=== PATIENT | female | born 1975 | race Caucasian/White ===

== ENCOUNTER 2017-03-07 13:24 | Inpatient (IN) ==
[2017-03-07 14:03] LABS: Bilirubin,Urine Negative (Negative); Blood,Urine Negative (Negative); Clarity,Urine Clear (Clear); Color,Urine Yellow (Yellow); Glucose,Urine (UA) 500 mg/dL (Normal); Ketones,Urine Negative (Negative); Nitrite,Urine Negative (Negative); PH,Urine 5.5 pH Units (5.0-8.0); Protein,Urine Negative (Neg-Trace); Specific Gravity,Urine >= 1.030 (1.010-1.025); Urobilinogen,Urine Normal (Normal)
[2017-03-07 14:04] LABS: Leukocyte Esterase,Urine Negative (Negative)
[2017-03-07 14:06] LABS: Amphetamine Screen,Urine Negative ng/mL (Cutoff=1000); Barbiturate Screen,Urine Negative ng/mL (Cutoff=200); Benzodiazepines Screen,Urine Positive ng/mL (Cutoff=200); Cannabinoid Screen,Urine Negative ng/mL (Cutoff = 50); Cocaine Screen,Urine Negative ng/mL (Cutoff= 300); Opiate Screen,Urine Positive ng/mL (Cutoff=300); Phencyclidine Screen,Urine Negative ng/mL (Cutoff=25)
[2017-03-07 14:35] LABS: Basophils # 0.1 K/mcL (0.0-0.2); Basophils % 0.7 %; Eosinophils # 0.4 K/mcL (0.0-0.6); Eosinophils % 3.1 %; Hematocrit 48.4 % (35.3-44.9); Hemoglobin 16.8 g/dL (11.5-15.4); Immature Granulocytes % 0.3 % (0-4); Lymphocytes # 4.1 K/mcL (0.6-4.6); Lymphocytes % 33.4 %; Mean Corpuscular HGB Conc 34.7 g/dL (31.6-35.5); Mean Corpuscular Volume 83.4 fL (83.0-100.0); Mean Platelet Volume 8.8 fL (9.4-12.4); Monocytes # 0.7 K/mcL (0.0-1.3); Monocytes % 5.5 %; Neutrophils # 6.9 K/mcL (1.6-8.9); Platelet Count 197 K/mcL (140-400); Red Cell Distribution Width 12.4 % (11.5-14.5)
--- NOTE | 2017-03-07 14:37 | Emergency Department Note ---
START Narrative - START START: I examined this patient and my medical decision-making was reviewed with the [employer]INDER MACHINE/PA/Advanced Practice Nurse/Resident Physician. I agree with the documented findings, disposition and treatment plan as described except to the extent set forth below. Patient emergency department with suicidal thoughts. States she is hearing voices that are telling her to walk in traffic. No physical complaints. Physical exam nonfocal. She sitting up in bed reading a book. Plan. Medical clearance and one a evaluation. Patient is medically cleared at this time. Contact the one A for evaluation.
[2017-03-07 14:57] LABS: BUN/Creatinine Ratio 12 (6-26); Blood Urea Nitrogen 10 mg/dL (7-20); Calcium 9.7 mg/dL (8.6-10.8); Carbon Dioxide 20 mEq/L (19-29); Chloride 104 mEq/L (98-109); Glucose 239 mg/dL (70-99); Osmolality,Calculated 289 (280-300); Potassium 4.4 mEq/L (3.5-4.5); Sodium 136 mEq/L (136-145); eGFR For African Americans > 60 (> 60); eGFR For Non-African Americans > 60 (> 60)
[2017-03-07 15:04] LABS: Acetaminophen < 1.0 mcg/mL (10-30); Ethanol < 10 mg/dL (0-10); Salicylate < 5.0 mg/dL (15-30)
--- NOTE | 2017-03-07 15:08 | Emergency Department Note ---
Disposition Clinical Impression: Suicidal ideation Disposition: Admitted As Inpatient Condition: Good Psych HPI - General Chief Complaint: ED Psychiatric Symptoms Stated Complaint: SI, hearing voices Time Seen by Provider: 03/07/17 13:51 Source: patient Mode of arrival: private vehicle Limitations: no limitations Nursing Notes Reviewed: Yes Vital Signs Reviewed: Yes - History of Present Illness HPI Narrative: 41-year-old female history of bipolar who presents to the ER due to suicidal ideation. Patient reports history of voices yesterday telling her to harm herself by walking out into the road. She states that she had heard voices before but never to harm herself. She does report in the past of attempted suicide attempt by overdosing on her Xanax. She denies any homicidal ideation. No visual hallucinations. No recent changes in her medications. Denies alcohol or drug use. No other complaints. Pt complaint: suicidal ideation Onset (ago): day(s) Duration: intermittent History of similar episodes: Yes Improves with: none Worsens with: none Alleged intoxication: No Associated Psychiatric Symptoms: depression, suicidal ideation Associated symptoms: Reports: denies other symptoms Traumatic symptoms: denies traumatic injury Treatments prior to arrival: none Self harm or harm to others: admits thoughts of self harm, has plan - Related Data Home Medications Medication Instructions Recorded Confirmed Gabapentin [Neurontin] 800 mg PO QID 05/15/15 03/07/17 Levothyroxine [Synthroid] 25 mcg PO QAM 05/15/15 03/07/17 Metformin [Glucophage] 1,000 mg PO BIDWM 05/15/15 03/07/17 Omeprazole [PriLOSEC] 40 mg PO DAILY 05/15/15 03/07/17 Simvastatin [Zocor] 20 mg PO HS 05/15/15 03/07/17 Albuterol Sulfate [Albuterol 2 puff IH Q6HR PRN 06/22/15 03/07/17 Inhaler] FLUoxetine HCl [Prozac] 60 mg PO DAILY 01/18/17 03/07/17 LORazepam [Ativan] 0.5 mg PO BID PRN 01/18/17 03/07/17 Lidocaine Patch [Lidoderm 5% patch] 1 each TP DAILY 01/18/17 03/07/17 Albuterol Neb [Proventil Neb] 2.5 mg IH TID PRN 03/07/17 03/07/17 Lisinopril [Zestril] 10 mg PO DAILY 03/07/17 03/07/17 Ranitidine HCl [Zantac] 300 mg PO HS 03/07/17 03/07/17 Tizanidine HCl [Zanaflex] 4 mg PO TID 03/07/17 03/07/17 Previous Rx's Medication Instructions Recorded Dicyclomine [Bentyl] 20 mg PO Q6H PRN #0 capsule 03/09/17 Quetiapine Fumarate [Seroquel] 25 mg PO HS #30 tablet 03/09/17 Allergies Allergy/AdvReac Type Severity Reaction Status Date / Time chlordiazepoxide Allergy Hallucinati Verified 03/08/17 13:25 [From Librax (with ng methscopolamine)] Clidinium Allergy Hallucinati Verified 03/08/17 13:25 [From Librax (with ng clidinium)] metoclopramide [From Reglan] Allergy Anaphylaxis Verified 01/18/17 22:28 nabumetone [From Relafen] Allergy Anaphylaxis Verified 01/18/17 22:28 scopolamine Allergy Hallucinati Verified 03/08/17 13:25 [From Librax (with ng methscopolamine)] meperidine [From Demerol] AdvReac Rash Verified 01/18/17 22:28 All systems ED: reviewed and negative except as stated. Cardiovascular: Denies: chest pain Respiratory: Denies: dyspnea Gastrointestinal: Denies: abdominal pain Psychiatric: Reports: depression, suicidal thoughts, auditory hallucinations. Denies: homicidal thoughts, visual hallucinations Past Medical History - Past Medical History Attestation: Yes The following information was validated with the patient. Source: patient Medical history: Reports: asthma, diabetes, GERD, hyperlipidemia, thyroid disease, valvular heart disease, other Surgical history: Reports: cholecystectomy, hysterectomy, orthopedic, other, sinus surgery, other Psychiatric history: Reports: anxiety, bipolar, depression, prior suicide attempt, previous psychiatric hospitalization [facility] history: Reports: polycystic ovary syndrome - Social History Smoking Status: Current every day smoker Smokeless Tobacco Status: No Alcohol use: Reports: occasionally Drug use: Reports: none Physical Exam - General Limitations: no limitations General appearance: alert, in no apparent distress - Head Head exam: atraumatic, normocephalic, normal inspection - Eye Eye exam: Present: normal appearance, EOMI - ENT ENT exam: normal exam - Neck Neck exam: Present: normal inspection - Chest Chest inspection: Present: normal inspection, symmetric chest wall rise - Respiratory Respiratory exam: Present: normal lung sounds bilaterally - Cardiovascular Cardiovascular exam: Present: regular rate, normal rhythm, normal heart sounds - Abdominal Exam Abdominal exam: Present: soft, Non-Tender. Absent: tenderness - Extremities Exam Extremities exam: Present: normal inspection, full ROM - Expanded Upper Extremity Exam Shoulder exam: Present: normal inspection, full ROM Arm exam: Present: normal inspection, full ROM Elbow exam: Present: normal inspection, full ROM Forearm/Wrist exam: Present: normal inspection, full ROM Hand exam: Present: normal inspection, full ROM - Expanded Lower Extremity Exam Hip/Pelvis exam: Present: normal inspection, full ROM Upper leg exam: Present: normal inspection, full ROM Knee exam: Present: normal inspection, full ROM Lower leg exam: Present: normal inspection, full ROM Ankle exam: Present: normal inspection, full ROM Foot/toe exam: Present: normal inspection, full ROM - Neurological Exam Neurological exam: Present: alert, other (GCS 15 nonfocal neurologic exam moves all extremities) - Psychiatric Psychiatric exam: Present: normal affect, normal mood - Skin Skin exam: Present: warm, dry, intact, normal color Course Course Narrative: Patient seen and examined. Vital signs reviewed. We will get labs to clear for psychiatric evaluation. Vital Signs Temperature 98.1 F 03/07/17 13:25 Pulse Rate 86 03/07/17 13:25 Respiratory Rate 16 03/07/17 13:25 Blood Pressure 152/93 03/07/17 13:25 O2 Sat by Pulse Oximetry 95 03/07/17 13:25 Temperature 97.5 F L 03/09/17 09:00 Pulse Rate 79 03/09/17 09:00 Respiratory Rate 16 03/09/17 09:00 Blood Pressure 124/82 03/09/17 09:00 O2 Sat by Pulse Oximetry 95 03/07/17 13:25 Oxygen Delivery Oxygen Delivery Room Air Psych - MDM Narrative Medical decision making narrative: 41-year-old female presents to the ER due to suicidal ideation. She was medically cleared for psychiatric evaluation. Patient has been accepted for inpatient management. - Lab Data Lab results reviewed: Yes I reviewed the patient's lab results. Result diagrams: 03/07/17 14:28 03/07/17 14:28 Lab Results 03/07/17 03/07/17 03/07/17 Range/Units 12:45 12:45 12:45 WBC (4.3-11.1) K/mcL RBC (3.82-4.97) M/mcL Hgb (11.5-15.4) g/dL Hct (35.3-44.9) % MCV (83.0-100.0) fL MCH (28.0-33.3) pg MCHC (31.6-35.5) g/dL RDW (11.5-14.5) % Plt Count (140-400) K/mcL MPV (9.4-12.4) fL Immature Gran % (0-4) % Seg Neutrophils % % Lymphocytes % % Monocytes % % Eosinophils % % Basophils % % Neutrophils # (1.6-8.9) K/mcL Lymphocytes # (0.6-4.6) K/mcL Monocytes # (0.0-1.3) K/mcL Eosinophils # (0.0-0.6) K/mcL Basophils # (0.0-0.2) K/mcL Sodium (136-145) mEq/L Potassium (3.5-4.5) mEq/L Chloride (98-109) mEq/L Carbon Dioxide (19-29) mEq/L BUN (7-20) mg/dL Creatinine (0.57-1.11) mg/dL Est GFR ( Amer) (> 60) Est GFR (Non-Af Amer) (> 60) BUN/Creatinine Ratio (6-26) Glucose (70-99) mg/dL Calculated Osmolality (280-300) Calcium (8.6-10.8) mg/dL TSH (0.350-4.840) mcIU/mL Urine Color Yellow (Yellow) Urine Clarity Clear (Clear) Urine pH 5.5 (5.0-8.0) pH Units Ur Specific [place] >= 1.030 H (1.010-1.025) Urine Protein Negative (Neg-Trace) mg/dL Urine Glucose (UA) 500 H (Normal) mg/dL Urine Ketones Negative (Negative) mg/dL Urine Blood Negative (Negative) Urine Nitrite Negative (Negative) Urine Bilirubin Negative (Negative) Urine Urobilinogen Normal (Normal) mg/dL Ur Leukocyte Esterase Negative (Negative) Urine Test Negative (Negative) Salicylates (15-30) mg/dL Urine Opiates Screen Positive H (Wjydfw=299) ng/mL Acetaminophen (10-30) mcg/mL Ur Barbiturates Screen Negative (Peciyd=871) ng/mL Ur Phencyclidine Scrn Negative (Cutoff=25) ng/mL Ur Amphetamines Screen Negative (Dctxss=8173) ng/mL U Benzodiazepines Scrn Positive H (Eqanyq=294) ng/mL Urine Cocaine Screen Negative (Cutoff= 300) ng/mL U Marijuana (THC) Screen Negative (Cutoff = 50) ng/mL Ethyl Alcohol (0-10) mg/dL 03/07/17 03/07/17 Range/Units 14:28 14:28 WBC 12.1 H (4.3-11.1) K/mcL RBC 5.80 H (3.82-4.97) M/mcL Hgb 16.8 H (11.5-15.4) g/dL Hct 48.4 H (35.3-44.9) % MCV 83.4 (83.0-100.0) fL MCH 29.0 (28.0-33.3) pg MCHC 34.7 (31.6-35.5) g/dL RDW 12.4 (11.5-14.5) % Plt Count 197 (140-400) K/mcL MPV 8.8 L (9.4-12.4) fL Immature Gran % 0.3 (0-4) % Seg Neutrophils % 57.0 % Lymphocytes % 33.4 % Monocytes % 5.5 % Eosinophils % 3.1 % Basophils % 0.7 % Neutrophils # 6.9 (1.6-8.9) K/mcL Lymphocytes # 4.1 (0.6-4.6) K/mcL Monocytes # 0.7 (0.0-1.3) K/mcL Eosinophils # 0.4 (0.0-0.6) K/mcL Basophils # 0.1 (0.0-0.2) K/mcL Sodium 136 (136-145) mEq/L Potassium 4.4 (3.5-4.5) mEq/L Chloride 104 (98-109) mEq/L Carbon Dioxide 20 (19-29) mEq/L BUN 10 (7-20) mg/dL Creatinine 0.84 (0.57-1.11) mg/dL Est GFR ( Amer) > 60 (> 60) Est GFR (Non-Af Amer) > 60 (> 60) BUN/Creatinine Ratio 12 (6-26) Glucose 239 H (70-99) mg/dL Calculated Osmolality 289 (280-300) Calcium 9.7 (8.6-10.8) mg/dL TSH 1.621 (0.350-4.840) mcIU/mL Urine Color (Yellow) Urine Clarity (Clear) Urine pH (5.0-8.0) pH Units Ur Specific [place] (1.010-1.025) Urine Protein (Neg-Trace) mg/dL Urine Glucose (UA) (Normal) mg/dL Urine Ketones (Negative) mg/dL Urine Blood (Negative) Urine Nitrite (Negative) Urine Bilirubin (Negative) Urine Urobilinogen (Normal) mg/dL Ur Leukocyte Esterase (Negative) Urine Test (Negative) Salicylates < 5.0 L (15-30) mg/dL Urine Opiates Screen (Rpvnoa=780) ng/mL Acetaminophen < 1.0 L (10-30) mcg/mL Ur Barbiturates Screen (Fvnuzn=846) ng/mL Ur Phencyclidine Scrn (Cutoff=25) ng/mL Ur Amphetamines Screen (Ivrmps=9751) ng/mL U Benzodiazepines Scrn (Vtelgz=745) ng/mL Urine Cocaine Screen (Cutoff= 300) ng/mL U Marijuana (THC) Screen (Cutoff = 50) ng/mL Ethyl Alcohol < 10 (0-10) mg/dL Psychiatric Medical Clearance - Medical Clearance Checklist Medical History: No Social History Section defined Current Vitals: Last Vital Signs Temp 97.5 F L 03/09/17 09:00 Pulse 79 03/09/17 09:00 Resp 16 03/09/17 09:00 BP 124/82 03/09/17 09:00 Pulse Ox 95 03/07/17 13:25 Abnormal Labs: Abnormal lab results WBC 12.1 K/mcL (4.3-11.1) H 03/07/17 14:28 RBC 5.80 M/mcL (3.82-4.97) H 03/07/17 14:28 Hgb 16.8 g/dL (11.5-15.4) H 03/07/17 14:28 Hct 48.4 % (35.3-44.9) H 03/07/17 14:28 MPV 8.8 fL (9.4-12.4) L 03/07/17 14:28 Glucose 239 mg/dL (70-99) H 03/07/17 14:28 Ur Specific [place] >= 1.030 (1.010-1.025) H 03/07/17 12:45 Urine Glucose (UA) 500 mg/dL (Normal) H 03/07/17 12:45 Salicylates < 5.0 mg/dL (15-30) L 03/07/17 14:28 Urine Opiates Screen Positive ng/mL (Fhzsqz=509) H 03/07/17 12:45 Acetaminophen < 1.0 mcg/mL (10-30) L 03/07/17 14:28 U Benzodiazepines Scrn Positive ng/mL (Eiizrp=672) H 03/07/17 12:45
[2017-03-07 15:18] LABS: Thyroid Stimulating Hormone 1.621 mcIU/mL (0.350-4.840)
[2017-03-07] MEDS ORDERED: Haloperidol Lactate 5 MG/ML VIAL IM PRN (21:27)
[2017-03-07] MEDS ORDERED: Mag Hydrox/Al Hydrox/Simeth 30 ML UDC PO PRN (21:27)
[2017-03-07] MEDS ORDERED: traZODone 50 MG TABLET PO PRN (21:27)
[2017-03-07] MEDS ORDERED: MOM Conc 10 ML UD.LIQ PO PRN (21:27)
[2017-03-07] MEDS ORDERED: *HR* LORazepam 1 MG TABLET PO PRN (21:27)
[2017-03-07] MEDS ORDERED: hydrOXYzine pamoate 25 MG CAPSULE PO PRN (21:27)
[2017-03-07] MEDS ORDERED: *HR* LORazepam 2 MG/ML VIAL IM PRN (21:27)
[2017-03-07] MEDS ORDERED: Acetaminophen 325 MG TABLET PO PRN (21:27)
[2017-03-07] MEDS ORDERED: Albuterol 2.5 MG/3 ML NEBULIZER IH PRN (21:30)
[2017-03-07] MEDS ORDERED: *HR* LORazepam 0.5 MG TABLET PO PRN (21:30)
[2017-03-07] MEDS: Famotidine 20 MG TABLET PO SCH (22:32)
[2017-03-07] MEDS: Gabapentin 400 MG CAPSULE PO SCH (22:32)
[2017-03-07] MEDS: tiZANidine 4 MG TABLET PO SCH (22:32)
[2017-03-07] MEDS: FLUoxetine 20 MG CAPSULE PO SCH (22:33)
[2017-03-08] MEDS: Levothyroxine 25 MCG TABLET PO SCH (07:07)
[2017-03-08] MEDS: *HR* Metformin 500 MG TABLET PO SCH ×2 (08:36→17:31)
[2017-03-08] MEDS: tiZANidine 4 MG TABLET PO SCH ×3 (08:36→20:39)
[2017-03-08] MEDS: Gabapentin 400 MG CAPSULE PO SCH ×4 (08:36→20:38)
[2017-03-08] MEDS: FLUoxetine 20 MG CAPSULE PO SCH (08:37)
[2017-03-08] MEDS ORDERED: Levothyroxine 25 MCG TABLET PO SCH (09:00)
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
[2017-03-08] MEDS: Famotidine 20 MG TABLET PO SCH (20:39)
[2017-03-09] MEDS: Levothyroxine 25 MCG TABLET PO SCH (06:55)
[2017-03-09] MEDS: *HR* Metformin 500 MG TABLET PO SCH (08:30)
[2017-03-09] MEDS: FLUoxetine 20 MG CAPSULE PO SCH (08:30)
[2017-03-09] MEDS: tiZANidine 4 MG TABLET PO SCH (08:31)
[2017-03-09] MEDS: Gabapentin 400 MG CAPSULE PO SCH (08:31)
[2017-03-09 09:16] VITALS: BP 124/82
--- NOTE | 2017-03-09 09:26 | Discharge Summary ---
Date of Encounter: 03/09/17 Time of Encounter: 08:30 Diagnosis - Discharge Diagnosis (1) Bipolar II disorder Status: Acute Medications - Discharge Medications Prescriptions: Quetiapine Fumarate [Seroquel] 25 mg PO HS #30 tablet Gabapentin [Neurontin] 800 mg PO QID 05/15/15 [History] Levothyroxine [Synthroid] 25 mcg PO QAM 05/15/15 [History] Metformin [Glucophage] 1,000 mg PO BIDWM 05/15/15 [History] Omeprazole [PriLOSEC] 40 mg PO DAILY 05/15/15 [History] Simvastatin [Zocor] 20 mg PO HS 05/15/15 [History] Albuterol Sulfate [Albuterol Inhaler] 2 puff IH Q6HR PRN 06/22/15 [History] FLUoxetine HCl [Prozac] 60 mg PO DAILY 01/18/17 [History] LORazepam [Ativan] 0.5 mg PO BID PRN 01/18/17 [History] Lidocaine Patch [Lidoderm 5% patch] 1 each TP DAILY 01/18/17 [History] Albuterol Neb [Proventil Neb] 2.5 mg IH TID PRN 03/07/17 [History] Lisinopril [Zestril] 10 mg PO DAILY 03/07/17 [History] Ranitidine HCl [Zantac] 300 mg PO HS 03/07/17 [History] Tizanidine HCl [Zanaflex] 4 mg PO TID 03/07/17 [History] Dicyclomine [Bentyl] 20 mg PO Q6H PRN #0 capsule 03/09/17 [Rx] Quetiapine Fumarate [Seroquel] 25 mg PO HS #30 tablet 03/09/17 [Rx] Allergies chlordiazepoxide [From Librax (with methscopolamine)] Allergy (Verified 13:25) Hallucinating Clidinium [From Librax (with clidinium)] Allergy (Verified 03/08/17 13:25) Hallucinating metoclopramide [From Reglan] Allergy (Verified 01/18/17 22:28) Anaphylaxis nabumetone [From Relafen] Allergy (Verified 01/18/17 22:28) Anaphylaxis scopolamine [From Librax (with methscopolamine)] Allergy (Verified 03/08/17 13: 25) Hallucinating meperidine [From Demerol] Adverse Reaction (Verified 01/18/17 22:28) Rash Provider Date of admission: 03/07/17 20:26 Primary care physician: PCP NO Discharging clinician: Francisco Garcia Assessment and Plan - Patient/Caregiver Discharge Instructions Activity: resume usual activities as tolerated Diet: diabetic diet - Follow up Plan Follow up with: [facility] [Outside] - 04/15/17 2:00 pm (The above appointment is Yue Mcallister for mental health counseling. You will also see Dr. Zimmer for outpatient psychiatric assessment and medication management services on 2016 at 4:00pm. You may contact the office regularly to check for cancellations that would allow you to be seen sooner.) Functional capacity at discharge: independent ambulation Overall status at discharge: Stable Disposition: Home, Self-Care Hospital Course Hospital course: Ms. Minor is a 41 year old female who was hospitalized after having psychotic symptoms secondary to his starting Librax. During the hospital course patient stabilized very quickly. She responded well to the therapeutic milieu and medications and her psychotic symptoms subsided. She was endorsing hearing voices prior to her admission but they subsided. She was not delusional psychotic suicidal or manic on discharge. Her condition was stable. She attended groups and participated in activities. Her sleep and appetite was good. Overall patient's discharge condition was stable. Does patient wish to continue nicotine replacement upon disc: No - Time Spent with Patient Total time spent providing and/or coordinating discharge services: Quality - Multiple Antipsychotics Patient discharged on 2 or more antipsychotic medications: No Procedures - Procedures Procedures: Medication Management, Crisis Stabilization, Supportive Therapy, Group Therapy, Psychoeducational Therapy Mental Status Exam - Mental Status Exam Patient orientation: Yes Person, Yes Time, Yes Place Level of alertness: Alert Patient appearance: Appropriate, Well Groomed Behavior: calm, cooperative Psychomotor activity: Normal Eye contact: Maintains Eye Contact Mood description: Euthymic/stable Affect description: congruent with mood, full range Speech pattern: Normal rate, Normal rhythm, Normal tone Speech Volume: Normal Thought process: Linear, Goal Oriented Thought Content: No Suicidal ideation, No Homicidal ideation, No Overt delusions Perceptual Disturbances: No Auditory hallucinations, No Visual hallucinations Judgment: Fair Insight: Partial
== END 2017-03-09 11:20 | disposition home or self-care (01) | DRG 918 ==
LOC: EMEROO 13:24 → 1ANU 20:24 → SUATTDRO 20:26
PROVIDERS: ADMIT Psychiatry & Neurology Psychiatry; ATTEND Psychiatry & Neurology Psychiatry

== ENCOUNTER 2017-04-06 22:10 | Observation (INO) ==
[2017-04-07] MEDS ORDERED: Naloxone 0.4 MG/ML INJ IVP PRN (02:10)
[2017-04-07] MEDS ORDERED: Ondansetron ODT 4 MG TAB.RAPDIS SL PRN (02:10)
[2017-04-07] MEDS ORDERED: Albuterol 2.5 MG/3 ML NEBULIZER IH PRN (02:14)
[2017-04-07] MEDS ORDERED: 0.9 % Sodium Chloride 1,000 ML IVC SCH (02:15)
[2017-04-07] MEDS ORDERED: *HR* Dextrose 50 % in Water (Syg) 50 ML SYRINGE IVP PRN (02:16)
[2017-04-07] MEDS ORDERED: D5% in Water 1,000 ML IVC PRN (02:16)
[2017-04-07] MEDS ORDERED: Dextrose Gel 15 GM PO PRN ×2 (02:16)
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
[2017-04-07 05:10] LABS: Basophils # 0.1 K/mcL (0.0-0.2); Basophils % 0.7 %; Eosinophils # 0.3 K/mcL (0.0-0.6); Eosinophils % 2.4 %; Hematocrit 45.3 % (35.3-44.9); Hemoglobin 15.3 g/dL (11.5-15.4); Immature Granulocytes % 0.3 % (0-4); Lymphocytes # 4.3 K/mcL (0.6-4.6); Lymphocytes % 35.6 %; Mean Corpuscular HGB Conc 33.8 g/dL (31.6-35.5); Mean Corpuscular Hemoglobin 29.4 pg (28.0-33.3); Mean Corpuscular Volume 86.9 fL (83.0-100.0); Monocytes # 0.7 K/mcL (0.0-1.3); Neutrophils # 6.6 K/mcL (1.6-8.9); Platelet Count 180 K/mcL (140-400); Red Blood Count 5.21 M/mcL (3.82-4.97); Red Cell Distribution Width 13.2 % (11.5-14.5)
[2017-04-07 05:25] LABS: BUN/Creatinine Ratio 11 (6-26); Blood Urea Nitrogen 9 mg/dL (7-20); Calcium 9.2 mg/dL (8.6-10.8); Carbon Dioxide 21 mEq/L (19-29); Chloride 104 mEq/L (98-109); Glucose 213 mg/dL (70-99); Osmolality,Calculated 289 (280-300); Sodium 137 mEq/L (136-145); eGFR For African Americans > 60 (> 60); eGFR For Non-African Americans > 60 (> 60)
[2017-04-07 06:16] LABS: Potassium 4.1 mEq/L (3.5-4.5)
[2017-04-07] MEDS ORDERED: Levothyroxine 25 MCG TABLET PO SCH (09:00)
[2017-04-07] MEDS: Insulin LISPRO 300 UNITS/3 ML VIAL SQ SCH ×2 (09:33→12:45)
[2017-04-07 11:30] VITALS: BP 150/70
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
--- NOTE | 2017-04-07 15:13 | Consult Note ---
Date of Encounter: 04/07/17 Time of Encounter: 02:35 Assessment & Recommendation (1) MDD (major depressive disorder), recurrent severe, without psychosis Current visit: Yes Status: Acute Assessment & Recommendation: Patient is seen and interviewed. At this point in time patient is adamantly denying any suicidal or homicidal ideations. She is future oriented and is able to verbalize a safety plan. She and her are addressing the ongoing challenges and issues with her [id number]. The assured the patient that his father will have no contact with the patient which is a big relief for her. Patient already has scheduled appointments to meet Dr. Siddiqi and her therapist. She already has supply of Prozac and Ativan at home. Since patient is denying suicidal homicidal ideation is and is not meeting criteria to be hospitalized on the psych floor my recommendation is for her to continue the Prozac and Ativan and keep her follow-up appointment with Dr. Siddiqi. Her discharge condition is stable (2) Major depressive disorder, recurrent, moderate Current visit: Yes Status: Acute History of Present Illness Patient: known to practice within the last 3 years Requesting Physician: Honey Linda CNP Reason for consult: Suicide attempt History of present illness: Ms. Minor is a 41 year old female Who was hospitalized on the MedSurg floor after she overdosed on 48 tablets of 25 mg of Seroquel and Zanaflex patient is known to us from recent hospitalization. She is noted to have history of depression. Patient reported that she was doing fine up until on the day of her overdose. She reported that she and her have been helping a young 28-year-old tahira who is going through a difficult time in his life. Patient reported that ever since she has been with her for the last 13 years her oqntam-[id number] has been extremely created critical negative manipulative and controlling. She reported then on the day of her overdose she had an issue with her elctrg-iu-wbf afterwards the oxramj-ru-czu accuse her of having a relationship with this young man whom patient is helping during a difficult time. Patient reported that she felt disgusted and devastated and extremely depressed and hopeless and impulsively overdosed on her pills. She reported that her intention was not to kill herself. She is currently denying any suicidal or homicidal ideations. She is future oriented is showing extreme drug remorse and regretting her impulsive act. She and her have addressed his ongoing challenges with isfkio-se-uac and will make sure that his father has no contact with the patient. CC: Honey Linda CNP Past Med Surg Social Fam HX - Past Medical History Medical history: asthma, diabetes, GERD, hyperlipidemia, hypertension, thyroid disease, valvular heart disease, other - Past Psychiatric History Psychiatric history: Reports: depression, previous psychiatric hospitalization Past psychiatric history details: Patient has previous psychiatric hospitalizations. Last hospitalization is indicated he now was approximately a month ago. Patient is currently receiving outpatient treatment from Dr. Peters Family psychiatric history: Yes Family Psychiatric History Details: Father has history of bipolar Family History of Suicide: None - Past Surgical History Surgical History: cholecystectomy, hysterectomy, orthopedic, other, sinus surgery, other - Social History Smoking Status: Current every day smoker Smokeless Tobacco Status: No Alcohol use: none Drug use: none Occupational status: unemployed Current living situation: Home, With Family Activity Level: Independent ambulation Recent Out of Country Travel Within the Last 8 Weeks: No Exposure or Possible Exposure to Illness During Travel: No Additional social history: Patient is and resides with her of 13 years. She does not have any children. She denies any legal issues. - Family History Father Hx Family Cardiac Disorders: Yes (HTN, CVA) Hx Family Cancer: Yes (Lung) Hx Family GI Disorders: Yes (Ulcers, hiatal hernia) Hx Family Genitourinary Disorders: No Hx Family Endocrine Disorder: Yes (DM) Hx Family Musculoskeletal Disorders: No Hx Family Neuromuscular Disorders: No Hx Family Neurologic Disorders: No Hx Family HEENT Disorders: No Hx Family Autoimmune Disorders: No Hx Family Reproductive Disorders: No Hx Family Psychosocial Disorders: Yes (psych) Hx Family Medical Disorders: No Medications & Allergies Gabapentin [Neurontin] 800 mg PO BID 05/15/15 [History] Levothyroxine [Synthroid] 25 mcg PO QAM 05/15/15 [History] Metformin [Glucophage] 1,000 mg PO BIDWM 05/15/15 [History] Omeprazole [PriLOSEC] 40 mg PO DAILY 05/15/15 [History] Simvastatin [Zocor] 20 mg PO HS 05/15/15 [History] Albuterol Sulfate [Albuterol Inhaler] 2 puff IH Q6HR PRN 06/22/15 [History] FLUoxetine HCl [Prozac] 60 mg PO DAILY 01/18/17 [History] LORazepam [Ativan] 0.5 mg PO BID PRN 01/18/17 [History] Lidocaine Patch [Lidoderm 5% patch] 1 patch TP DAILY PRN 01/18/17 [History] Albuterol Neb [Proventil Neb] 2.5 mg IH TID PRN 03/07/17 [History] Lisinopril [Zestril] 10 mg PO DAILY 03/07/17 [History] Ranitidine HCl [Zantac] 300 mg PO HS 03/07/17 [History] Tizanidine HCl [Zanaflex] 4 mg PO TID 03/07/17 [History] Aspirin/Acetaminophen/Caffeine [Excedrin Migraine Caplet] 1 tab PO DAILY PRN [History] Gabapentin [Neurontin] 1,600 mg PO HS 04/07/17 [History] Quetiapine Fumarate [SEROquel] 50 mg PO HS 04/07/17 [History] Allergies chlordiazepoxide [From Librax (with methscopolamine)] Allergy (Verified 19:30) Hallucinating Clidinium [From Librax (with clidinium)] Allergy (Verified 04/06/17 19:30) Hallucinating metoclopramide [From Reglan] Allergy (Verified 04/06/17 19:30) Anaphylaxis nabumetone [From Relafen] Allergy (Verified 04/06/17 19:30) Anaphylaxis scopolamine [From Librax (with methscopolamine)] Allergy (Verified 04/06/17 19: 30) Hallucinating meperidine [From Demerol] Adverse Reaction (Verified 04/06/17 19:30) Rash Review of Systems Psychiatric: Reports: anxiety Mental Status Exam Patient orientation: Yes Person, Yes Time, Yes Place Level of alertness: Alert Patient appearance: Appropriate, Well Groomed Behavior: calm, cooperative Psychomotor activity: Normal Eye contact: Maintains Eye Contact Mood description: Euthymic/stable Affect description: congruent with mood, full range Speech pattern: Normal rate, Normal rhythm, Normal tone Speech volume: Normal Thought process: Linear, Goal Oriented Thought content: No Suicidal ideation, No Homicidal ideation, No Overt delusions Perceptual disturbances: No Auditory hallucinations, No Visual hallucinations Attention span: Capable of Focused Attention Memory description: Grossly Intact Patient reliability: Reliable Historian Intelligence estimate: Average Judgment: Limited Insight: Partial Results - Vital Signs Vital signs: Temp Pulse Resp BP Pulse Ox 96.7 F L 55 16 150/70 96 04/07/17 11:28 04/07/17 11:28 04/07/17 11:39 04/07/17 11:28 04/07/17 11:39 - Labs Labs: Laboratory Last Values WBC 12.0 K/mcL (4.3-11.1) H 04/07/17 03:56 RBC 5.21 M/mcL (3.82-4.97) H 04/07/17 03:56 Hgb 15.3 g/dL (11.5-15.4) D 04/07/17 03:56 Hct 45.3 % (35.3-44.9) H 04/07/17 03:56 MCV 86.9 fL (83.0-100.0) 04/07/17 03:56 MCH 29.4 pg (28.0-33.3) 04/07/17 03:56 MCHC 33.8 g/dL (31.6-35.5) 04/07/17 03:56 RDW 13.2 % (11.5-14.5) 04/07/17 03:56 Plt Count 180 K/mcL (140-400) 04/07/17 03:56 MPV 9.0 fL (9.4-12.4) L 04/07/17 03:56 Immature Gran % 0.3 % (0-4) 04/07/17 03:56 Seg Neutrophils % 55.0 % 04/07/17 03:56 Lymphocytes % 35.6 % 04/07/17 03:56 Monocytes % 6.0 % 04/07/17 03:56 Eosinophils % 2.4 % 04/07/17 03:56 Basophils % 0.7 % 04/07/17 03:56 Neutrophils # 6.6 K/mcL (1.6-8.9) 04/07/17 03:56 Lymphocytes # 4.3 K/mcL (0.6-4.6) 04/07/17 03:56 Monocytes # 0.7 K/mcL (0.0-1.3) 04/07/17 03:56 Eosinophils # 0.3 K/mcL (0.0-0.6) 04/07/17 03:56 Basophils # 0.1 K/mcL (0.0-0.2) 04/07/17 03:56 Sodium 137 mEq/L (136-145) 04/07/17 03:56 Potassium 4.1 mEq/L (3.5-4.5) 04/07/17 03:56 Chloride 104 mEq/L (98-109) 04/07/17 03:56 Carbon Dioxide 21 mEq/L (19-29) 04/07/17 03:56 BUN 9 mg/dL (7-20) 04/07/17 03:56 Creatinine 0.81 mg/dL (0.57-1.11) 04/07/17 03:56 Est GFR ( Amer) > 60 (> 60) 04/07/17 03:56 Est GFR (Non-Af Amer) > 60 (> 60) 04/07/17 03:56 BUN/Creatinine Ratio 11 (6-26) 04/07/17 03:56 Glucose 213 mg/dL (70-99) H 04/07/17 03:56 Calculated Osmolality 289 (280-300) 04/07/17 03:56 Calcium 9.2 mg/dL (8.6-10.8) 04/07/17 03:56 Consult Discharge Plan - Plan Referrals: Kana Newberry MD [Primary Care Provider] -
[2017-04-07] MEDS ORDERED: Insulin LISPRO 300 UNITS/3 ML VIAL SQ SCH (21:00)
== END 2017-04-07 17:45 | disposition left against medical advice (07) ==
LOC: 3BNU
PROVIDERS: ADMIT Internal Medicine; ATTEND Registered Nurse

== ENCOUNTER 2017-11-22 13:22 | Observation (INO) ==
[2017-11-22] MEDS ORDERED: Naloxone 0.4 MG/ML INJ IVP PRN (15:29)
[2017-11-22] MEDS ORDERED: Ondansetron 4 MG/2 ML VIAL IVP PRN (15:29)
[2017-11-22] MEDS ORDERED: *HR* Promethazine 25 MG/ML VIAL IVP PRN (15:29)
[2017-11-22] MEDS ORDERED: Acetaminophen 325 MG TABLET PO PRN (15:29)
[2017-11-22] MEDS ORDERED: Acetaminophen/Aspirin/Caffeine TABLET PO PRN (16:59)
[2017-11-22] MEDS ORDERED: Albuterol 2.5 MG/3 ML NEBULIZER IH PRN (16:59)
[2017-11-22] MEDS ORDERED: *HR* Dextrose 50 % in Water (Syg) 50 ML SYRINGE IVP PRN (17:02)
[2017-11-22] MEDS ORDERED: D5% in Water 1,000 ML IVC PRN (17:02)
[2017-11-22] MEDS ORDERED: Dextrose Gel 15 GM/37.5 ML TUBE PO PRN ×2 (17:02)
[2017-11-22] MEDS ORDERED: *HR* Heparin 5,000 UNIT/ML VIAL IVP PRN ×2 (17:03)
[2017-11-22] MEDS ORDERED: *HR* Heparin 5,000 UNIT/ML VIAL IVP ONE (17:03)
--- NOTE | 2017-11-22 17:04 | Internal Med History&Physical ---
Date of Encounter: 11/22/17 Time of Encounter: 16:30 Assessment and Plan (1) Chest pain Current visit: No Status: Acute Will admit the pt into Tele for observation Will place pt on court monitor Apparently pt had some lab error elevated Troponin at [facility] Checked stat Trop now @ < 0.03 Cont trend on Trop Cont Heparin gtt for now.. until second trop..If her next Trop also negative, we can stop her Heparin Card consulted EKG reviewed showed normal sinus rhythm and no acute ischemic changes noticed will start pt on ASA, and Nitro PRN for pain Will check FLP in AM Pt did mention she had normal stress test a month ago will try to get those records Qualifiers: Chest pain type: unspecified Qualified Code(s): R07.9 - Chest pain, unspecified (2) Elevated troponin Current visit: No Status: Acute Unclear seems to be more like lab error..however with her symptoms will continue close monitoring (3) Type 2 diabetes mellitus Current visit: No Status: Chronic Uncontrolled DM2 BS in 300's check HbA1C Pt mentioned HbA1C 9 few months ago on ISS + will add Levemir Qualifiers: Diabetes mellitus jail insulin use: without computer terminal operator use Diabetes mellitus complication detail: with other neurological complication Qualified Code(s): E11.49 - Type 2 diabetes mellitus with other diabetic neurological complication (4) Hypothyroidism Current visit: No Status: Acute onn Levothyroxine Qualifiers: Qualified Code(s): E03.9 - Hypothyroidism, unspecified (5) Asthma Current visit: No Status: Chronic stable not in exacerbation resumed home regimen Qualifiers: Asthma severity: mild Asthma persistence: unspecified Asthma complication type: uncomplicated Qualified Code(s): J45.909 - Unspecified asthma, uncomplicated (6) Bipolar II disorder Current visit: No Status: Chronic resumed home meds (7) Hypertension Current visit: No Status: Chronic Qualifiers: Hypertension type: essential hypertension Qualified Code(s): I10 - Essential (primary) hypertension (8) GERD (gastroesophageal reflux disease) Current visit: No Status: Acute on PPI Qualifiers: Qualified Code(s): K21.9 - Gastro-esophageal reflux disease without esophagitis Internal Medicine - H&P: HPI Chief complaint: chest pain Admitted From: Emergency Dept Plans for Post Hospital Care: Home History of present illness: Ms. Minor is a 42 year old female with a known past medical history of hypertension, diabetes type II, hyperlipidemia, hypothyroidism and GERD who recently had a normal cardiac stress test a month ago now she presented to [facility] emergency room complaining of chest pain. Patient stated that her chest pain started this morning while she was sitting at home and watching TV. Her pain is located in left chest wall region radiating to her left shoulder. Her chest pain is more like sharp, 8 out of 10 in severity, associated with some diaphoresis and nausea. Patient had a further work up done at emergency room her troponin was elevated at 0.56. So we are asked to admit the pt here for further work up. Currently pt denied any CP. Past Med Surg Social Fam HX - Past Medical History Medical history: asthma, diabetes, GERD, hyperlipidemia, hypertension, thyroid disease, valvular heart disease, other Psychiatric history: anxiety, other - Past Surgical History Surgical History: cholecystectomy, hysterectomy, orthopedic, other, sinus surgery, other - Social History Smoking Status: Current every day smoker Smokeless Tobacco Status: No Alcohol use: none Drug use: none - Family History Father Living Status: Still Living Hx Family Cardiac Disorders: Yes (HTN, CVA) Hx Family Cancer: Yes (Lung) Hx Family GI Disorders: Yes (Ulcers, hiatal hernia) Hx Family Endocrine Disorder: Yes (DM) Hx Family Neuromuscular Disorders: No Hx Family Neurologic Disorders: No Hx Family HEENT Disorders: No Hx Family Autoimmune Disorders: No Internal Medicine - H&P: Meds Gabapentin [Neurontin] 800 mg PO BID 05/15/15 [History] Levothyroxine [Synthroid] 25 mcg PO QAM 05/15/15 [History] Metformin [Glucophage] 1,000 mg PO BIDWM 05/15/15 [History] Omeprazole [PriLOSEC] 40 mg PO DAILY 05/15/15 [History] Simvastatin [Zocor] 20 mg PO HS 05/15/15 [History] Albuterol Sulfate [Albuterol Inhaler] 2 puff IH Q6HR PRN 06/22/15 [History] FLUoxetine HCl [Prozac] 60 mg PO DAILY 01/18/17 [History] LORazepam [Ativan] 0.5 mg PO BID PRN 01/18/17 [History] Lidocaine Patch [Lidoderm 5% patch] 1 patch TP DAILY PRN 01/18/17 [History] Albuterol Neb [Proventil Neb] 2.5 mg IH TID PRN 03/07/17 [History] Lisinopril [Zestril] 10 mg PO DAILY 03/07/17 [History] Ranitidine HCl [Zantac] 300 mg PO HS 03/07/17 [History] Tizanidine HCl [Zanaflex] 4 mg PO TID 03/07/17 [History] Aspirin/Acetaminophen/Caffeine [Excedrin Migraine Caplet] 1 tab PO DAILY PRN [History] Gabapentin [Neurontin] 1,600 mg PO HS 04/07/17 [History] Quetiapine Fumarate [SEROquel] 50 mg PO HS 04/07/17 [History] Ibuprofen 800 mg PO TID PRN #15 tablet 11/11/17 [Rx] 3 Allergy/AdvReac Type Severity Reaction Status Date / Time chlordiazepoxide Allergy Hallucinati Verified 08/22/17 17:54 [From Librax (with ng methscopolamine)] Clidinium Allergy Hallucinati Verified 08/22/17 17:54 [From Librax (with ng clidinium)] scopolamine Allergy Hallucinati Verified 08/22/17 17:54 [From Librax (with ng methscopolamine)] meperidine [From Demerol] AdvReac Rash Verified 08/22/17 17:54 metoclopramide [From Reglan] AdvReac Palpitation Verified 08/22/17 17:54 s nabumetone [From Relafen] AdvReac Palpitation Verified 08/22/17 17:54 s All Systems PM: A 10-system review of systems was performed and is negative for pertinent findings except as documented above in the HPI. Review of systems: All the systems are reviewed everything is benign except the systems and symptoms I mentioned in the history of present illness - Constitutional Vitals: Temp Pulse Resp BP Pulse Ox 97.9 F 90 18 131/87 97 11/22/17 15:09 11/22/17 15:09 11/22/17 15:09 11/22/17 15:09 11/22/17 15:09 General appearance: Present: A&O X 3, no acute distress, answers questions appropriately - Head Head exam: Present: atraumatic, normocephalic - Neck Neck exam general surgery: Present: supple - Respiratory Respiratory exam: Present: decreased breath sounds. Absent: chest wall tenderness, rales, respiratory distress, rhonchi, wheezes - Cardiovascular Cardiovascular exam: Present: RRR, +S1, +S2. Absent: tachycardia - GI/Abdominal GI/Abdominal exam: Present: normal bowel sounds, soft. Absent: rebound, rigid, tenderness - Extremities Exam Extremities exam: Absent: calf tenderness, pedal edema, tenderness - Back Exam Back exam: Absent: CVA tenderness (L), CVA tenderness (R) - Neurological Exam Neurological exam: Present: alert, oriented X3 - Psychiatric Psychiatric exam: Present: normal affect, normal mood - Skin Skin exam: Absent: rash Internal Med - H&P Results - Labs Labs: Cardiac Enzymes 11/22/17 11/22/17 Range/Units 16:04 16:04 Troponin I < 0.03 < 0.03 (< 0.04) ng/mL
[2017-11-22] MEDS ORDERED: Heparin 25,000 UNIT/500 ML D5W 25,000 UNIT/500 ML BAG IVC SCH (17:15)
[2017-11-22] MEDS: *HR* HYDROcodone/Acet 5/325 mg TABLET PO PRN (17:25)
[2017-11-22] MEDS: Gabapentin 400 MG CAPSULE PO SCH ×2 (17:31→21:23)
[2017-11-22 18:43] LABS: Hematocrit 47.7 % (35.3-44.9); Hemoglobin 16.6 g/dL (11.5-15.4); Mean Corpuscular HGB Conc 34.8 g/dL (31.6-35.5); Mean Corpuscular Volume 83.4 fL (83.0-100.0); Mean Platelet Volume 9.8 fL (9.4-12.4); Platelet Count 197 K/mcL (140-400); Red Blood Count 5.72 M/mcL (3.82-4.97)
[2017-11-22 18:49] LABS: Prothrombin Time 11.1 Seconds (9.4-12.1)
[2017-11-22 18:52] LABS: Activated Partial Thrombo Time 45.4 Seconds (26.0-36.0)
[2017-11-22] MEDS: Insulin LISPRO 300 UNITS/3 ML VIAL SQ SCH (21:19)
[2017-11-22] MEDS: Famotidine 20 MG TABLET PO SCH (21:22)
[2017-11-22] MEDS: tiZANidine 4 MG TABLET PO SCH (21:22)
[2017-11-23 05:20] LABS: Basophils # 0.1 K/mcL (0.0-0.2); Eosinophils # 0.3 K/mcL (0.0-0.6); Eosinophils % 3.6 %; Hematocrit 41.7 % (35.3-44.9); Hemoglobin 14.6 g/dL (11.5-15.4); Immature Granulocytes % 0.2 % (0-4); Lymphocytes # 3.8 K/mcL (0.6-4.6); Lymphocytes % 45.2 %; Mean Corpuscular Hemoglobin 29.3 pg (28.0-33.3); Mean Corpuscular Volume 83.7 fL (83.0-100.0); Monocytes # 0.4 K/mcL (0.0-1.3); Monocytes % 4.8 %; Neutrophils # 3.8 K/mcL (1.6-8.9); Platelet Count 150 K/mcL (140-400); Red Blood Count 4.98 M/mcL (3.82-4.97); Segmented Neutrophils % 45.2 %
[2017-11-23 05:42] LABS: BUN/Creatinine Ratio 10 (6-26); Blood Urea Nitrogen 8 mg/dL (6-20); Carbon Dioxide 23 mEq/L (23-29); Chloride 105 mEq/L (98-107); Chol/HDL Ratio 6.1 (0-4.9); Cholesterol 128 mg/dL (< 200); Glucose 389 mg/dL (70-105); HDL Cholesterol 21 mg/dL (40-59); Magnesium 1.3 mg/dL (1.6-2.6); Osmolality,Calculated 298 (280-300); Potassium 3.9 mEq/L (3.5-5.1); Sodium 137 mEq/L (136-145); Triglycerides 428 mg/dL (< 150); eGFR For African Americans > 60 (> 60); eGFR For Non-African Americans > 60 (> 60)
[2017-11-23] MEDS: Levothyroxine 25 MCG TABLET PO SCH (05:51)
[2017-11-23] MEDS: tiZANidine 4 MG TABLET PO SCH ×3 (07:59→21:49)
[2017-11-23] MEDS: FLUoxetine 20 MG CAPSULE PO SCH (07:59)
[2017-11-23] MEDS: Insulin LISPRO 300 UNITS/3 ML VIAL SQ SCH ×4 (08:00→21:40)
[2017-11-23] MEDS: *HR* LORazepam 0.5 MG TABLET PO PRN (08:02)
[2017-11-23] MEDS: Gabapentin 400 MG CAPSULE PO SCH ×3 (08:02→21:49)
--- NOTE | 2017-11-23 09:41 | Cardiology Consult Note ---
Date of Encounter: 11/23/17 Time of Encounter: 09:35 Assessment and Plan (1) Chest pain Current Visit: No Status: Acute Chest pain, SHADY negative. Will check echo due to reported history of bicuspid aortic valve. Qualifiers: Chest pain type: precordial pain Qualified Code(s): R07.2 - Precordial pain Discussion w patient/family: The assessment and plan as outlined above was discussed with the patient and/or family members who expressed understanding and agreement. All questions were answered. Thank you for involving us in the care of your patient. Please call with any questions. History of Present Illness Consult date: 11/23/17 Requesting physician: Terence Pierson Consult reason: Chest pain Chief complaint: Chest pain History of present illness: Ms. Minor is a 42 year old female with stated history of bicuspid aortic valve who presents with sharp chest pain with mostly atypical features. Reported recent stress test at outside hospital negative. There was an apparent abnormal troponin at outside hosp. but this was immediately repeated and found to be normal, this was considered a lab error. Troponins have been negative here. Past Med Surg Social Fam HX - Past Medical History Medical history: asthma, diabetes, GERD, hyperlipidemia, hypertension, thyroid disease, valvular heart disease, other Psychiatric history: anxiety, other - Past Surgical History Surgical History: cholecystectomy, hysterectomy, orthopedic, other, sinus surgery, other - Social History Smoking Status: Current every day smoker Smokeless Tobacco Status: No Alcohol use: none Drug use: none - Family History Father Living Status: Still Living Hx Family Cardiac Disorders: Yes (HTN, CVA) Hx Family Cancer: Yes (Lung) Hx Family GI Disorders: Yes (Ulcers, hiatal hernia) Hx Family Endocrine Disorder: Yes (DM) Hx Family Neuromuscular Disorders: No Hx Family Neurologic Disorders: No Hx Family HEENT Disorders: No Hx Family Autoimmune Disorders: No Medications and Allergies Gabapentin [Neurontin] 800 mg PO BID 05/15/15 [History] Levothyroxine [Synthroid] 25 mcg PO QAM 05/15/15 [History] Metformin [Glucophage] 1,000 mg PO BIDWM 05/15/15 [History] Omeprazole [PriLOSEC] 40 mg PO DAILY 05/15/15 [History] Simvastatin [Zocor] 20 mg PO HS 05/15/15 [History] Albuterol Sulfate [Albuterol Inhaler] 2 puff IH Q6HR PRN 06/22/15 [History] FLUoxetine HCl [Prozac] 60 mg PO DAILY 01/18/17 [History] LORazepam [Ativan] 0.5 mg PO BID PRN 01/18/17 [History] Lidocaine Patch [Lidoderm 5% patch] 1 patch TP DAILY PRN 01/18/17 [History] Albuterol Neb [Proventil Neb] 2.5 mg IH TID PRN 03/07/17 [History] Lisinopril [Zestril] 10 mg PO DAILY 03/07/17 [History] Ranitidine HCl [Zantac] 300 mg PO HS 03/07/17 [History] Tizanidine HCl [Zanaflex] 4 mg PO TID 03/07/17 [History] Aspirin/Acetaminophen/Caffeine [Excedrin Migraine Caplet] 1 tab PO DAILY PRN [History] Gabapentin [Neurontin] 1,600 mg PO HS 04/07/17 [History] Quetiapine Fumarate [SEROquel] 50 mg PO HS 04/07/17 [History] Ibuprofen 800 mg PO TID PRN #15 tablet 11/11/17 [Rx] 3 Allergy/AdvReac Type Severity Reaction Status Date / Time chlordiazepoxide Allergy Hallucinati Verified 08/22/17 17:54 [From Librax (with ng methscopolamine)] Clidinium Allergy Hallucinati Verified 08/22/17 17:54 [From Librax (with ng clidinium)] scopolamine Allergy Hallucinati Verified 08/22/17 17:54 [From Librax (with ng methscopolamine)] meperidine [From Demerol] AdvReac Rash Verified 08/22/17 17:54 metoclopramide [From Reglan] AdvReac Palpitation Verified 08/22/17 17:54 s nabumetone [From Relafen] AdvReac Palpitation Verified 08/22/17 17:54 s All Systems Review: The remainder of the systems were reviewed and are negative Physical Examination Vital Signs, Last 4 Hours Temp Pulse Resp BP Pulse Ox 11/23/17 07:36 97.9 F 84 18 115/79 99 General: Conversant, No Apparent Distress HEENT: Atraumatic, Normocephaly, Mucus Membranes Moist Neck: No JVD, Normal carotid pulses Cardiac: Reg Rate and Rhythm, Normal S1 and S2, No Murmur Lungs: Normal Breath Sounds, No Wheeze, Rales, Rhonchi Neuro: Alert and responsive, No focal deficits noted Abdomen: Soft, Non-Tender Skin: No rashes noted on visualized skin Musculoskeletal: No Chest Wall Tenderness Extremities: No Clubbing, No Cyanosis, No Edema, Normal Pulses Results 11/23/17 04:23 11/23/17 04:23 Lab Results 11/22/17 11/22/17 11/22/17 16:04 16:04 17:19 WBC 12.8 H Hgb 16.6 H Hct 47.7 H Plt Count 197 INR APTT Sodium Potassium Chloride Carbon Dioxide BUN Creatinine Glucose Calcium Magnesium Troponin I < 0.03 < 0.03 11/22/17 11/22/17 11/23/17 17:19 22:24 01:11 WBC Hgb Hct Plt Count INR 1.0 APTT 45.4 H D 74.0 H D Sodium Potassium Chloride Carbon Dioxide BUN Creatinine Glucose Calcium Magnesium Troponin I < 0.03 11/23/17 11/23/17 11/23/17 04:23 04:23 04:23 WBC 8.4 Hgb 14.6 D Hct 41.7 Plt Count 150 INR APTT Sodium 137 Potassium 3.9 Chloride 105 Carbon Dioxide 23 BUN 8 Creatinine 0.80 Glucose 389 H Calcium 9.0 Magnesium 1.3 L Troponin I < 0.03 - EKG Interpretation EKG results cardiology: no diagnostic ischemia Consult Discharge Plan - Plan Referrals: Kana Newberry MD [Primary Care Provider] -
[2017-11-23] MEDS: *HR* HYDROcodone/Acet 5/325 mg TABLET PO PRN (12:31)
[2017-11-23] MEDS ORDERED: Magnesium Oxide 400 MG TABLET PO ONE (14:04)
--- NOTE | 2017-11-23 16:48 | Internal Med Progress Note ---
Date of Encounter: 11/23/17 Time of Encounter: 16:47 - Assessment and plan (1) Asthma Current Visit: No Status: Chronic Assessment and plan: Lungs are clear asthma is not exacerbated continue home medications Qualifiers: Asthma severity: mild Asthma persistence: unspecified Asthma complication type: uncomplicated Qualified Code(s): J45.909 - Unspecified asthma, uncomplicated (2) Bipolar II disorder Current Visit: No Status: Chronic Assessment and plan: Continue home medications (3) Chest pain Current Visit: No Status: Acute Assessment and plan: Patient was admitted from outside hospital with elevated troponin which was repeated and found to be a lab air. Her troponins have all been less than 0.03. Her heparin drip was discontinued after the second negative troponin. Cardiology was consulted and ordered an echocardiogram. Per their report she needs no further workup that she had a recent negative stress test 1 month ago. EKG revealed revealed a normal sinus rhythm with no acute ischemic changes. She was placed on aspirin and nitroglycerin when necessary for pain Qualifiers: Chest pain type: precordial pain Qualified Code(s): R07.2 - Precordial pain (4) Hypertension Current Visit: No Status: Chronic Assessment and plan: Controlled continue home medications Qualifiers: Hypertension type: essential hypertension Qualified Code(s): I10 - Essential (primary) hypertension (5) Hypothyroidism Current Visit: No Status: Acute Assessment and plan: Continue home medication Qualifiers: Qualified Code(s): E03.9 - Hypothyroidism, unspecified (6) Type 2 diabetes mellitus Current Visit: No Status: Chronic Assessment and plan: Uncontrolled diabetes mellitus type 2. Patient stated her hemoglobin A1c was 9 a few months ago. She is on sliding scale insulin plus Levemir. 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 She has had different types of pain throughout the day. She ate her breakfast. She has been up in the room walking around. No fevers, chills, shortness of breath, abdominal pain. Varying degrees and types of chest pain reported of various staff members. When I assessed her she told me she had no chest pain. - Constitutional Vitals: Temp Pulse Resp BP Pulse Ox 97.6 F 72 16 107/72 99 11/23/17 16:25 11/23/17 16:25 11/23/17 16:25 11/23/17 16:25 11/23/17 16:25 General appearance: Present: cooperative, A&O X 3, pleasant, no acute distress - Head Head exam: Present: atraumatic, normocephalic - Eye Eye exam: Present: PERRL, conjuntiva pink, sclera anicteric Pupils: Present: PERRL - Neck Neck exam general surgery: Present: supple, trachea midline. Absent: lymphadenopathy - Respiratory Respiratory exam: Present: CTAB. Absent: accessory muscle use, rales, rhonchi, wheezes - Cardiovascular Cardiovascular exam: Present: RRR, +S1, +S2. Absent: diastolic murmur, gallop, rubs, systolic murmur - GI/Abdominal GI/Abdominal exam: Present: normal bowel sounds, soft, no peritoneal signs. Absent: distended, tenderness - Extremities Exam Extremities exam: Present: warm, radial pulses palpable and symmetrical. Absent : calf tenderness, cyanotic, pedal edema - Neurological Exam Neurological exam: Present: CN II-XII intact, oriented X3, no focal deficits. Absent: pronater drift, facial droop, speech deficit - Skin Skin exam: Present: dry, intact, normal color, pallor, warm Internal Medicine: Result - Labs CBC & Chem 7: 11/23/17 04:23 11/23/17 04:23 Labs: Short CBC 11/22/17 11/23/17 Range/Units 17:19 04:23 WBC 12.8 H 8.4 (4.3-11.1) K/mcL Hgb 16.6 H 14.6 D (11.5-15.4) g/dL Hct 47.7 H 41.7 (35.3-44.9) % Plt Count 197 150 (140-400) K/mcL Neutrophils # 3.8 (1.6-8.9) K/mcL BMP 11/23/17 04:23 Sodium 137 Potassium 3.9 Chloride 105 Carbon Dioxide 23 BUN 8 Creatinine 0.80 Glucose 389 H Calcium 9.0 Cardiac Enzymes 11/22/17 11/23/17 Range/Units 22:24 04:23 Troponin I < 0.03 < 0.03 (< 0.04) ng/mL - ABG Interpretation ABG results: PT/INR, D-dimer PT 11.1 Seconds (9.4-12.1) 11/22/17 17:19 Consult Discharge Plan - Plan Referrals: Kana Newberry MD [Primary Care Provider] -
[2017-11-23] MEDS: Famotidine 20 MG TABLET PO SCH (21:40)
[2017-11-24] MEDS: *HR* LORazepam 0.5 MG TABLET PO PRN (00:02)
[2017-11-24] MEDS: Levothyroxine 25 MCG TABLET PO SCH (05:48)
[2017-11-24 08:50] LABS: Estimated Average Glucose 278 mg/dl; Hemoglobin A1C 11.3 %
[2017-11-24] MEDS: tiZANidine 4 MG TABLET PO SCH ×2 (08:50→15:05)
[2017-11-24] MEDS: FLUoxetine 20 MG CAPSULE PO SCH (08:50)
[2017-11-24] MEDS: Insulin LISPRO 300 UNITS/3 ML VIAL SQ SCH ×2 (08:52→12:53)
[2017-11-24] MEDS: Gabapentin 400 MG CAPSULE PO SCH (09:00)
--- NOTE | 2017-11-24 09:47 | Cardiology Progress Note ---
Date of Encounter: 11/24/17 Time of Encounter: 09:45 Assessment and Plan (1) Chest pain Current Visit: No Status: Acute Presented with episode of chest pain, troponin negative x 4. No ischemic EKG changes. No recurrent chest pain during hospitalization. Denies dyspnea. Reports negative stress test 1 month ago at [facility]--records requested , not yet received. Also reports [facility] without intervention approximately 5 years ago. Risk factors for CAD include HTN, HLD, DM, Tobacco abuse. Will check echo due to reported history of bicuspid aortic valve. TTE not yet completed. If no significant findings on TTE, will plan to sign off. Qualifiers: Chest pain type: precordial pain Qualified Code(s): R07.2 - Precordial pain Discussion w patient/family: The assessment and plan as outlined above was discussed with the patient and/or family members who expressed understanding and agreement. All questions were answered. Thank you for involving us in the care of your patient. Please call with any questions. I will discuss with Dr. Tashi Delacruz and make changes as necessary. Subjective Principal diagnosis: chest pain Interval history: TTE ordered, not yet completed. Pt denies any recurrence of chest pain overnight. Requested records of stress test from [facility], reportedly negative 1 month ago. Records not yet received. Pt denies dyspnea, palpitations or acute cardiac complaints. BP dropped to 80s/50s overnight. Per pt, she was asymptomatic--denied dizziness or ligthheadedness. Objective Vital Signs, Last 4 Hours Temp Pulse Resp BP Pulse Ox 11/24/17 07:33 97.7 F 82 16 108/72 98 11/24/17 05:59 102/68 Vital Signs Temp Pulse Resp BP Pulse Ox 11/24/17 07:33 97.7 F 82 16 108/72 98 11/24/17 05:59 102/68 11/24/17 03:28 97.8 F 80 16 85/59 97 11/23/17 23:40 98.3 F 77 16 95/63 98 11/23/17 21:39 100/62 11/23/17 20:55 98/50 11/23/17 19:29 98.1 F 78 16 86/55 97 11/23/17 16:25 97.6 F 72 16 107/72 99 11/23/17 11:49 97.9 F 81 16 83/59 96 Intake and Output 11/23/17 11/24/17 11/24/17 22:59 07:59 15:59 Intake Total 480 / 480 Balance 480 / 480 Intake: Oral 480 / 480 Other: Meal Breakfast Percent of Meal Consumed 100% Weight Blood Glucose* Patient Weight 11/25/17 00:59 Weight 82.191 kg General: Conversant, No Apparent Distress HEENT: Atraumatic, Normocephaly, Mucus Membranes Moist Neck: No JVD, Normal carotid pulses Cardiac: Reg Rate and Rhythm, Normal S1 and S2, No Murmur Lungs: Normal Breath Sounds, No Wheeze, Rales, Rhonchi Neuro: Alert and responsive, No focal deficits noted Abdomen: Soft, Non-Tender Skin: No rashes noted on visualized skin Musculoskeletal: No Chest Wall Tenderness Extremities: No Clubbing, No Cyanosis, No Edema, Normal Pulses Results 11/23/17 04:23 11/23/17 04:23 Active Medications Acetaminophen (Tylenol) 650 mg PO Q6HR PRN PRN Reason: Mild Pain/Fever Stop: 05/24/18 15:30 Acetaminophen/Aspirin/Caffeine (Excedrin Ex) 1 each PO DAILY PRN PRN Reason: Migraine Headache Stop: 05/24/18 17:00 Hydrocodone Bitart/Acetaminophen ([place] 5-325 Mg) 1 tab PO Q6HR PRN PRN Reason: Moderate Pain Stop: 05/24/18 15:30 Last Admin: 11/23/17 12:31 Dose: 1 tab Albuterol Sulfate (Proventil Neb) 2.5 mg IH TID PRN; Protocol PRN Reason: Dyspnea Stop: 05/24/18 17:00 Dextrose/Water (Dextrose 50% (Syg)) 25 ml IVP AD PRN PRN Reason: Hypoglycemia Stop: 05/24/18 17:03 Famotidine (Pepcid) 40 mg PO HS [facility] Stop: 05/24/18 21:01 Last Admin: 11/23/17 21:40 Dose: 40 mg Fluoxetine HCl (Prozac) 60 mg PO DAILY [facility] PRN Reason: Protocol Stop: 05/25/18 09:01 Last Admin: 11/24/17 08:50 Dose: 60 mg Gabapentin (Neurontin) 800 mg PO 0800,1700 [facility] Stop: 09/08/18 17:31 Last Admin: 11/24/17 09:00 Dose: 800 mg Gabapentin (Neurontin) 1,600 mg PO HS [facility] Stop: 05/24/18 21:01 Last Admin: 11/23/17 21:49 Dose: 1,600 mg Glucagon (Glucagen) 1 mg IM ONCE PRN PRN Reason: Hypoglycemia Stop: 05/24/18 17:03 Glucose (Gluctose) 15 gm PO ONCE PRN PRN Reason: Hypoglycemia Stop: 05/24/18 17:03 Glucose (Gluctose) 30 gm PO ONCE PRN PRN Reason: Hypoglycemia Stop: 05/24/18 17:03 Dextrose (Dextrose 5%) 1,000 mls @ 100 mls/hr IVC .Q10H PRN PRN Reason: HYPOGLYCEMIA Stop: 05/24/18 17:03 Insulin Human Lispro (Humalog) 0 units SQ HS [facility] PRN Reason: Protocol Stop: 05/24/18 21:01 Last Admin: 11/23/17 21:40 Dose: 6 units Insulin Human Lispro (Humalog) 0 units SQ TIDAC [facility] PRN Reason: Protocol Stop: 05/25/18 07:31 Last Admin: 11/24/17 08:52 Dose: 12 units Levothyroxine Sodium (Synthroid) 25 mcg PO 0630 [facility] Stop: 05/25/18 06:31 Last Admin: 11/24/17 05:48 Dose: 25 mcg Lidocaine HCl (Lidoderm 5% Patch) 1 each TP DAILY PRN PRN Reason: Pain Stop: 05/24/18 17:00 Lisinopril (Zestril) 10 mg PO DAILY [facility] PRN Reason: Protocol Stop: 05/25/18 09:01 Last Admin: 11/24/17 09:00 Dose: Not Given Lorazepam (Ativan) 0.5 mg PO BID PRN PRN Reason: Anxiety Stop: 05/24/18 17:00 Last Admin: 11/24/17 00:02 Dose: 0.5 mg Naloxone HCl (Narcan) 0.4 mg IVP Q2MIN PRN PRN Reason: SEE COMMENTS Stop: 05/24/18 15:30 Omeprazole (Prilosec) 40 mg PO DAILY [facility] PRN Reason: Protocol Stop: 05/25/18 09:01 Last Admin: 11/24/17 08:51 Dose: 40 mg Ondansetron HCl (Zofran) 4 mg IVP Q8HR PRN PRN Reason: Nausea And Vomiting Stop: 05/24/18 15:30 Promethazine HCl (Phenergan) 12.5 mg IVP Q6HR PRN PRN Reason: Nausea And Vomiting Stop: 05/24/18 15:30 Quetiapine Fumarate (Seroquel) 50 mg PO HS [facility] PRN Reason: Protocol Stop: 05/24/18 21:01 Last Admin: 11/23/17 21:48 Dose: 50 mg Simvastatin (Zocor) 20 mg PO HS [facility] PRN Reason: Protocol Stop: 05/24/18 21:01 Last Admin: 11/23/17 21:41 Dose: 20 mg Tizanidine HCl (Zanaflex) 4 mg PO TID [facility] Stop: 05/24/18 21:01 Last Admin: 11/24/17 08:50 Dose: 4 mg - EKG Interpretation EKG results cardiology: other (12 hr tele AVG HR 80, SR, no significant pauses or arrhythmias) Consult Discharge Plan - Plan Referrals: Kana Newberry MD [Primary Care Provider] -
[2017-11-24 12:00] VITALS: BP 105/69
--- NOTE | 2017-11-24 13:34 | Discharge Summary ---
Date of Encounter: 11/24/17 Time of Encounter: 13:32 - Discharge Diagnosis (1) Asthma Priority: Primary Status: Chronic Qualifiers: Asthma severity: mild Asthma persistence: unspecified Asthma complication type: uncomplicated Qualified Code(s): J45.909 - Unspecified asthma, uncomplicated (2) Bipolar II disorder Priority: Primary Status: Chronic (3) Chest pain Priority: Primary Status: Resolved Qualifiers: Chest pain type: precordial pain Qualified Code(s): R07.2 - Precordial pain (4) Hypertension Priority: Primary Status: Chronic Qualifiers: Hypertension type: essential hypertension Qualified Code(s): I10 - Essential (primary) hypertension (5) Hypothyroidism Priority: Primary Status: Chronic Qualifiers: Hypothyroidism type: unspecified Qualified Code(s): E03.9 - Hypothyroidism , unspecified (6) Type 2 diabetes mellitus Priority: Primary Status: Chronic Qualifiers: Diabetes mellitus 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 Minor is a 42 year old female who presented to [facility] was found to have elevated troponin. She was transferred to this facility and the troponins were rechecked and it was found to be a lab error and her troponins were negative. Cardiology was consult noted ordered an echocardiogram secondary to patient reported a history of a bicuspid aortic valve. Echocardiogram was completed with report reviewed. LVEF 65%. Normal left ventricular diastolic function. Normal right ventricular structure and function. Leaflet morphology of the aortic valve is not optimally visualized but suspect a bicuspid aortic valve. Moderate aortic regurg, no pulmonary hypertension. Ascending aorta not well visualized normal sized aortic root. No prior echo for comparison. All wall segments showed normal motion. Recent stress test at an outside hospital was reported as negative per the patient. Radiology has plans for no further workup so the patient will be discharged home today. She is receptive to the idea and has no other voiced complaints. Discharge discussed with: patient, nurse - Time Spent with Patient Total time spent providing and/or coordinating discharge services: Less than 30 minutes - Discharge Medications Home Medications: Gabapentin [Neurontin] 800 mg PO BID 05/15/15 [History] Levothyroxine [Synthroid] 25 mcg PO QAM 05/15/15 [History] Metformin [Glucophage] 1,000 mg PO BIDWM 05/15/15 [History] Omeprazole [PriLOSEC] 40 mg PO DAILY 05/15/15 [History] Simvastatin [Zocor] 20 mg PO HS 05/15/15 [History] Albuterol Sulfate [Albuterol Inhaler] 2 puff IH Q6HR PRN 06/22/15 [History] FLUoxetine HCl [Prozac] 60 mg PO DAILY 01/18/17 [History] Albuterol Neb [Proventil Neb] 2.5 mg IH TID PRN 03/07/17 [History] Lisinopril [Zestril] 10 mg PO DAILY 03/07/17 [History] Ranitidine HCl [Zantac] 300 mg PO HS 03/07/17 [History] Tizanidine HCl [Zanaflex] 4 mg PO TID 03/07/17 [History] Aspirin/Acetaminophen/Caffeine [Excedrin Migraine Caplet] 1 tab PO DAILY PRN [History] Gabapentin [Neurontin] 1,600 mg PO HS 04/07/17 [History] Quetiapine Fumarate [Seroquel] 25 mg PO HS 04/07/17 [History] Allergies/Adverse Reactions: 3 Allergy/AdvReac Type Severity Reaction Status Date / Time chlordiazepoxide Allergy Hallucinati Verified 11/23/17 13:13 [From Librax (with ng methscopolamine)] Clidinium Allergy Hallucinati Verified 11/23/17 13:13 [From Librax (with ng clidinium)] scopolamine Allergy Hallucinati Verified 11/23/17 13:13 [From Librax (with ng methscopolamine)] meperidine [From Demerol] AdvReac Rash Verified 11/23/17 13:13 metoclopramide [From Reglan] AdvReac Palpitation Verified 11/23/17 13:13 s nabumetone [From Relafen] AdvReac Palpitation Verified 11/23/17 13:13 s Date of admission: 11/22/17 14:43 Primary care physician: Kana Newberry MD Consults: 11/22/17 16:58 Consult to Cardiology [CONS] Routine Comment: Consulting Provider: Cardiology Aretha Reason for Consult: Acute NSTEMI Time Notified: 14:00 Call Completed: Yes Discharging clinician: Princess Stockton Anticipated date of discharge: 11/24/17 - Constitutional Vitals: Temp Pulse Resp BP Pulse Ox 97.9 F 73 16 105/69 98 11/24/17 11:58 11/24/17 11:58 11/24/17 11:58 11/24/17 11:58 11/24/17 11:58 General appearance: Present: cooperative, A&O X 3, pleasant, no acute distress - Head Head exam: Present: atraumatic, normocephalic - Eye Eye exam: Present: PERRL, conjuntiva pink, sclera anicteric Pupils: Present: PERRL - Neck Neck exam general surgery: Present: supple, trachea midline. Absent: lymphadenopathy - Respiratory Respiratory exam: Present: CTAB. Absent: accessory muscle use, rales, rhonchi, wheezes - Cardiovascular Cardiovascular exam: Present: RRR, +S1, +S2. Absent: diastolic murmur, gallop, rubs, systolic murmur - GI/Abdominal GI/Abdominal exam: Present: normal bowel sounds, soft, no peritoneal signs. Absent: distended, tenderness - Extremities Exam Extremities exam: Present: warm, radial pulses palpable and symmetrical. Absent : calf tenderness, cyanotic, pedal edema - Neurological Exam Neurological exam: Present: alert, CN II-XII intact, oriented X3, no focal deficits. Absent: pronater drift, facial droop, speech deficit - Skin Skin exam: Present: dry, intact, normal color, warm - Patient Status Disposition: Home, Self-Care Condition: Good Functional capacity at discharge: independent ambulation Overall status at discharge: patient is back to baseline - Discharge Instructions Follow Up With: Kana Newberry MD [Primary Care Provider] - - Diet and Activity Activity: resume usual activities as tolerated Diet: advance to your usual diet
== END 2017-11-24 15:21 | disposition home or self-care (01) ==
LOC: 3BNU
PROVIDERS: ADMIT Family Medicine; ATTEND Family Medicine

== ENCOUNTER 2018-01-08 11:51 | Observation (INO) ==
[2018-01-08] MEDS ORDERED: Aspirin 81 MG TAB.CHEW PO ONE (11:56)
--- NOTE | 2018-01-08 11:57 | Emergency Department Note ---
Disposition Clinical Impression: Chest pain Qualifiers: Chest pain type: unspecified Qualified Code(s): R07.9 - Chest pain, unspecified Disposition: Admitted As Inpatient Condition: Good Referrals: Kana Newberry MD [Primary Care Provider] - Forms: ED Satisfaction Letter Time of Disposition: 15:30 General Adult HPI - General Chief complaint: ED Chest Pain Stated complaint: Chest Pain Time Seen by Provider: 01/08/18 11:56 Nursing Notes Reviewed: Yes Vital Signs Reviewed: Yes - History of Present Illness HPI Narrative: Female patient presenting complaints department complaining of left sided chest pain goes into her left neck and left arm. Was recently diagnosed with bronchitis and finished a course of Avelox for this. States the pain has returned. She has a history of diabetes. Has not been taking her medications due to a recent CT PE that was negative. Pain Scale: 10 - Related Data Home Medications Medication Instructions Recorded Confirmed Gabapentin [Neurontin] 800 mg PO BID 05/15/15 01/03/18 Levothyroxine [Synthroid] 25 mcg PO QAM 05/15/15 01/03/18 Metformin [Glucophage] 1,000 mg PO BIDWM 05/15/15 01/03/18 Omeprazole [PriLOSEC] 40 mg PO DAILY 05/15/15 01/03/18 Simvastatin [Zocor] 20 mg PO HS 05/15/15 01/03/18 Albuterol Sulfate [Albuterol 2 puff IH Q6HR PRN 06/22/15 01/03/18 Inhaler] FLUoxetine HCl [Prozac] 60 mg PO DAILY 01/18/17 01/03/18 Albuterol Neb [Proventil Neb] 2.5 mg IH TID PRN 03/07/17 01/03/18 Ranitidine HCl [Zantac] 300 mg PO HS 03/07/17 01/03/18 Tizanidine HCl [Zanaflex] 4 mg PO TID 03/07/17 01/03/18 Aspirin/Acetaminophen/Caffeine 1 tab PO DAILY PRN 04/07/17 01/03/18 [Excedrin Migraine Caplet] Gabapentin [Neurontin] 1,600 mg PO HS 04/07/17 01/03/18 Aspirin [Ecotrin] 325 mg PO DAILY 01/08/18 01/08/18 Insulin ASPART [Novolog Flexpen] 0 unit IJ TID PRN 01/08/18 01/08/18 Insulin Glargine,Hum.rec.anlog 0 unit SQ DAILY PRN 01/08/18 01/08/18 [Basaglar Kwikpen U-100] LORazepam [Ativan] 0.5 mg PO BID PRN 01/08/18 01/08/18 Magnesium Oxide [Mgo] 400 mg PO DAILY 01/08/18 01/08/18 Quetiapine Fumarate [Seroquel] 50 mg PO HS 01/08/18 01/08/18 Allergies Allergy/AdvReac Type Severity Reaction Status Date / Time chlordiazepoxide Allergy Hallucinati Verified 01/08/18 15:20 [From Librax (with ng methscopolamine)] Clidinium Allergy Hallucinati Verified 01/08/18 15:20 [From Librax (with ng clidinium)] scopolamine Allergy Hallucinati Verified 01/08/18 15:20 [From Librax (with ng methscopolamine)] meperidine [From Demerol] AdvReac Rash Verified 01/08/18 15:20 metoclopramide [From Reglan] AdvReac Palpitation Verified 01/08/18 15:20 s nabumetone [From Relafen] AdvReac Palpitation Verified 01/08/18 15:20 s All systems ED: reviewed and negative except as stated. Constitutional: Denies: fever Cardiovascular: Reports: chest pain. Denies: palpitations, syncope Respiratory: Denies: cough, dyspnea Gastrointestinal: Denies: abdominal pain, nausea, vomiting, diarrhea Genitourinary: Denies: urgency, dysuria, frequency Musculoskeletal: Denies: back pain, neck pain Integumentary: Denies: rash, abrasion Neurological: Denies: headache, weakness Past Medical History - Past Medical History Attestation: Yes The following information was validated with the patient. Source: patient Medical history: Reports: asthma, diabetes, GERD, hyperlipidemia, hypertension, thyroid disease, valvular heart disease, other Surgical history: Reports: cholecystectomy, hysterectomy, orthopedic, other, sinus surgery, other Psychiatric history: Reports: anxiety, bipolar, depression MOOSE HUNTER history: Reports: no MOOSE HUNTER history - Social History Smoking Status: Current every day smoker Smokeless Tobacco Status: No Alcohol use: Reports: none Drug use: Reports: none Physical Exam - General Limitations: no limitations General appearance: alert, in no apparent distress - Head Head exam: atraumatic, normocephalic, normal inspection - Eye Eye exam: Present: normal appearance, PERRL, EOMI - ENT ENT exam: normal exam, normal oropharynx, mucous membranes moist - Neck Neck exam: Present: normal inspection, full ROM - Chest Chest inspection: Present: normal inspection, symmetric chest wall rise - Respiratory Respiratory exam: Present: normal lung sounds bilaterally. Absent: respiratory distress, accessory muscle use - Cardiovascular Cardiovascular exam: Present: regular rate, normal rhythm, normal heart sounds - Abdominal Exam Abdominal exam: Present: soft, Non-Tender. Absent: tenderness, distention, guarding, rebound, rigidity, organomegaly - Extremities Exam Extremities exam: Present: normal inspection, full ROM, normal capillary refill. Absent: tenderness, pedal edema - Back Exam Back exam: Present: normal inspection, full ROM. Absent: tenderness - Neurological Exam Neurological exam: Present: alert, oriented X3 - Psychiatric Psychiatric exam: Present: normal affect, normal mood - Skin Skin exam: Present: warm, dry, intact, normal color Course Course Narrative: Female patient presenting to the emergency room complaining of left-sided chest pain. States it started this morning. She has had pain like this previously. She was recently admitted to the hospital and treated for bronchitis. She also had a CT PE on Saturday that she states was negative. She states the pain is radiating to her left neck. She is not tried anything to help relieve the pain. She states it is in the left side of her chest. She is well-appearing lung sounds are clear heart tones are normal. Her abdomen is soft and nontender. She does not appear to be in any acute distress while resting in bed. We will get a cardiac workup on patient and a chest x-ray. - Reevaluation(s) Reevaluation #1: Patient states that she has not been taking her metformin as she had a CT PE study done on Saturday. She states she has called the pharmacist and is we will restart that tomorrow. She states that she also did not take her insulin this morning. We have added a beta hydroxybutyrate acid onto her labs. We will give her a dose of her metformin as well as provide her with insulin. Time: 13:44 Reevaluation #2: Patient reassessed. She states that her pain has him back. We will night her trial patient and admit her to the hospital for ongoing chest pain. She is agreeable and requesting this. Time: 15:06 - Consultations Consultation #1: Abby HEMPHILL accepted Pt in stable condition. Time: 15:17 Vital Signs Temperature 98.3 F 01/08/18 11:53 Pulse Rate 98 01/08/18 11:53 Respiratory Rate 16 01/08/18 11:53 Blood Pressure 153/98 01/08/18 11:53 O2 Sat by Pulse Oximetry 96 01/08/18 11:53 Temperature 98.3 F 01/08/18 12:06 Pulse Rate 87 01/08/18 14:26 Respiratory Rate 16 01/08/18 14:26 Blood Pressure 138/89 01/08/18 14:26 O2 Sat by Pulse Oximetry 96 01/08/18 14:26 Oxygen Delivery Oxygen Delivery Room Air Medical Decision Making - Medical Records Medical records reviewed: Yes I reviewed the patient's medical records. - Lab Data Lab results reviewed: Yes I reviewed the patient's lab results. Result diagrams: 01/08/18 12:08 01/08/18 12:08 Lab Results 01/08/18 01/08/18 01/08/18 Range/Units 12:08 12:08 13:25 WBC 8.5 (4.3-11.1) K/mcL RBC 5.70 H (3.82-4.97) M/mcL Hgb 16.7 H (11.5-15.4) g/dL Hct 46.8 H (35.3-44.9) % MCV 82.1 L (83.0-100.0) fL MCH 29.3 (28.0-33.3) pg MCHC 35.7 H (31.6-35.5) g/dL RDW 11.9 (11.5-14.5) % Plt Count 172 (140-400) K/mcL MPV 9.2 L (9.4-12.4) fL Immature Gran % 0.4 (0-4) % Seg Neutrophils % 65.5 % Lymphocytes % 25.6 % Monocytes % 4.6 % Eosinophils % 3.1 % Basophils % 0.8 % Neutrophils # 5.6 (1.6-8.9) K/mcL Lymphocytes # 2.2 (0.6-4.6) K/mcL Monocytes # 0.4 (0.0-1.3) K/mcL Eosinophils # 0.3 (0.0-0.6) K/mcL Basophils # 0.1 (0.0-0.2) K/mcL VBG pH (7.32-7.42) pH Units VBG pCO2 (41-51) mmHg VBG pO2 (25-50) mmHg VBG HCO3 (21-27) mEq/L Sodium 136 (136-145) mEq/L Potassium 4.2 (3.5-5.1) mEq/L Chloride 102 (98-107) mEq/L Carbon Dioxide 22 L (23-29) mEq/L BUN 9 (6-20) mg/dL Creatinine 0.68 (0.60-1.20) mg/dL Est GFR ( Amer) > 60 (> 60) Est GFR (Non-Af Amer) > 60 (> 60) BUN/Creatinine Ratio 13 (6-26) Glucose 357 H (70-105) mg/dL Calculated Osmolality 295 (280-300) Calcium 9.7 (8.6-10.3) mg/dL Troponin I < 0.03 (< 0.04) ng/mL Beta-Hydroxybutyric Acd 0.10 (0.02-0.27) mmol/L 01/08/18 Range/Units 13:46 WBC (4.3-11.1) K/mcL RBC (3.82-4.97) M/mcL Hgb (11.5-15.4) g/dL Hct (35.3-44.9) % MCV (83.0-100.0) fL MCH (28.0-33.3) pg MCHC (31.6-35.5) g/dL RDW (11.5-14.5) % Plt Count (140-400) K/mcL MPV (9.4-12.4) fL Immature Gran % (0-4) % Seg Neutrophils % % Lymphocytes % % Monocytes % % Eosinophils % % Basophils % % Neutrophils # (1.6-8.9) K/mcL Lymphocytes # (0.6-4.6) K/mcL Monocytes # (0.0-1.3) K/mcL Eosinophils # (0.0-0.6) K/mcL Basophils # (0.0-0.2) K/mcL VBG pH 7.41 (7.32-7.42) pH Units VBG pCO2 41 (41-51) mmHg VBG pO2 71 H (25-50) mmHg VBG HCO3 26 (21-27) mEq/L Sodium (136-145) mEq/L Potassium (3.5-5.1) mEq/L Chloride (98-107) mEq/L Carbon Dioxide (23-29) mEq/L BUN (6-20) mg/dL Creatinine (0.60-1.20) mg/dL Est GFR ( Amer) (> 60) Est GFR (Non-Af Amer) (> 60) BUN/Creatinine Ratio (6-26) Glucose (70-105) mg/dL Calculated Osmolality (280-300) Calcium (8.6-10.3) mg/dL Troponin I (< 0.04) ng/mL Beta-Hydroxybutyric Acd (0.02-0.27) mmol/L - Radiology Data Radiology results reviewed: Yes I reviewed the patient's radiology results. Chest X-Ray 01/08/18 11:56 IMPRESSION: No acute process. D/ / Kevin Persaud MD / Kevin Persaud MD Interpreting Provider: Kevin Persaud MD - EKG Data EKG #1 EKG attestation: Yes I reviewed and interpreted this EKG. EKG results narrative: Normal sinus rhythm at a rate of 99. TX interval is 140. Castration is 87. QT is 337. QTC is 413. No signs of acute ischemia. No significant change from previous EKG dated 01/03/2018.
[2018-01-08] MEDS ORDERED: *HR* FentaNYL (PF) 100 MCG/2 ML VIAL IVP ONE (12:03)
--- NOTE | 2018-01-08 12:14 | Emergency Department Note ---
Disposition Clinical Impression: Chest pain Disposition: Admitted As Inpatient Condition: Good General Adult HPI - General Chief complaint: ED Chest Pain Stated complaint: Chest Pain Time Seen by Provider: 01/08/18 11:56 Nursing Notes Reviewed: Yes Vital Signs Reviewed: Yes - History of Present Illness Pain Scale: 10 - Related Data Home Medications Medication Instructions Recorded Confirmed Gabapentin [Neurontin] 800 mg PO 0900,1200 05/15/15 01/08/18 Levothyroxine [Synthroid] 25 mcg PO QAM 05/15/15 01/08/18 Metformin [Glucophage] 1,000 mg PO BIDWM 05/15/15 01/08/18 Omeprazole [PriLOSEC] 40 mg PO HS 05/15/15 01/08/18 Simvastatin [Zocor] 20 mg PO HS 05/15/15 01/08/18 Albuterol Sulfate [Albuterol 2 puff IH Q6HR PRN 06/22/15 01/08/18 Inhaler] FLUoxetine HCl [Prozac] 60 mg PO QAM 01/18/17 01/08/18 Albuterol Neb [Proventil Neb] 2.5 mg IH TID PRN 03/07/17 01/08/18 Ranitidine HCl [Zantac] 300 mg PO HS 03/07/17 01/08/18 Tizanidine HCl [Zanaflex] 4 mg PO TID PRN 03/07/17 01/08/18 Aspirin/Acetaminophen/Caffeine 1 tab PO DAILY PRN 04/07/17 01/08/18 [Excedrin Migraine Caplet] Gabapentin [Neurontin] 1,600 mg PO HS 04/07/17 01/08/18 Aspirin [Ecotrin] 325 mg PO DAILY 01/08/18 01/08/18 Insulin ASPART [Novolog Flexpen] 0 unit IJ TID PRN 01/08/18 01/08/18 Insulin Glargine,Hum.rec.anlog 0 unit SQ DAILY PRN 01/08/18 01/08/18 [Basaglar Kwikpen U-100] LORazepam [Ativan] 0.5 mg PO BID PRN 01/08/18 01/08/18 Magnesium Oxide [Mgo] 400 mg PO DAILY 01/08/18 01/08/18 Quetiapine Fumarate [Seroquel] 50 mg PO HS 01/08/18 01/08/18 Allergies Allergy/AdvReac Type Severity Reaction Status Date / Time chlordiazepoxide Allergy Hallucinati Verified 01/08/18 15:20 [From Librax (with ng methscopolamine)] Clidinium Allergy Hallucinati Verified 01/08/18 15:20 [From Librax (with ng clidinium)] scopolamine Allergy Hallucinati Verified 01/08/18 15:20 [From Librax (with ng methscopolamine)] meperidine [From Demerol] AdvReac Rash Verified 01/08/18 15:20 metoclopramide [From Reglan] AdvReac Palpitation Verified 01/08/18 15:20 s nabumetone [From Relafen] AdvReac Palpitation Verified 01/08/18 15:20 s Past Medical History - Past Medical History Medical history: Reports: asthma, diabetes, GERD, hyperlipidemia, hypertension, thyroid disease, valvular heart disease, other Surgical history: Reports: cholecystectomy, hysterectomy, orthopedic, other, sinus surgery, other Psychiatric history: Reports: anxiety, bipolar, depression WOUND CARE TECHNICIAN history: Reports: no WOUND CARE TECHNICIAN history - Social History Smoking Status: Current every day smoker Smokeless Tobacco Status: No Alcohol use: Reports: none Drug use: Reports: none Course Vital Signs Temperature 98.3 F 01/08/18 11:53 Pulse Rate 98 01/08/18 11:53 Respiratory Rate 16 01/08/18 11:53 Blood Pressure 153/98 01/08/18 11:53 O2 Sat by Pulse Oximetry 96 01/08/18 11:53 Temperature 98.1 F 01/08/18 19:05 Pulse Rate 79 01/08/18 19:05 Respiratory Rate 18 01/08/18 19:05 Blood Pressure 126/81 01/08/18 19:05 O2 Sat by Pulse Oximetry 96 01/08/18 19:05 Oxygen Delivery Oxygen Delivery Room Air Medical Decision Making - MDM Narrative Medical decision making narrative: This documentation is done with the assistance of Dragon dictation. Despite efforts made to ensure accuracy, there may be inaccuracies in city councilman or spelling and typographical errors. Patient with vague symptoms of chest discomfort. History of bronchitis in the past as recently been treated with antibiotics and steroids. Says that she was worked up at another hospital difficult to determine if this was a true cardiac workup or not sorting it labs on her chest x-ray and reassess. She is in agreement with plan. Chest X-Ray 01/08/18 11:56 IMPRESSION: No acute process. D/ / Kevin Persaud MD / Kevin Persaud MD Interpreting Provider: Kevin Persaud MD 1159 hrs. patient had an EKG performed shows a sinus rhythm rate is 98 has sinus arrhythmia has a QRS of 87 and a QTC of 413 no signs of acute ischemia compare that to an EKG that was done last week with no changes. Except for rate. 1500 hrs.: Initial troponins negative. She had another episode of chest pain here repeating an EKG she is pain-free at this time and will bring her into the hospital impressions chest pain rule out ACS. She is in agreement with this plan. - Lab Data Result diagrams: 01/08/18 12:08 01/08/18 12:08 Lab Results 01/08/18 01/08/18 01/08/18 Range/Units 12:08 12:08 13:25 WBC 8.5 (4.3-11.1) K/mcL RBC 5.70 H (3.82-4.97) M/mcL Hgb 16.7 H (11.5-15.4) g/dL Hct 46.8 H (35.3-44.9) % MCV 82.1 L (83.0-100.0) fL MCH 29.3 (28.0-33.3) pg MCHC 35.7 H (31.6-35.5) g/dL RDW 11.9 (11.5-14.5) % Plt Count 172 (140-400) K/mcL MPV 9.2 L (9.4-12.4) fL Immature Gran % 0.4 (0-4) % Seg Neutrophils % 65.5 % Lymphocytes % 25.6 % Monocytes % 4.6 % Eosinophils % 3.1 % Basophils % 0.8 % Neutrophils # 5.6 (1.6-8.9) K/mcL Lymphocytes # 2.2 (0.6-4.6) K/mcL Monocytes # 0.4 (0.0-1.3) K/mcL Eosinophils # 0.3 (0.0-0.6) K/mcL Basophils # 0.1 (0.0-0.2) K/mcL VBG pH (7.32-7.42) pH Units VBG pCO2 (41-51) mmHg VBG pO2 (25-50) mmHg VBG HCO3 (21-27) mEq/L Sodium 136 (136-145) mEq/L Potassium 4.2 (3.5-5.1) mEq/L Chloride 102 (98-107) mEq/L Carbon Dioxide 22 L (23-29) mEq/L BUN 9 (6-20) mg/dL Creatinine 0.68 (0.60-1.20) mg/dL Est GFR ( Amer) > 60 (> 60) Est GFR (Non-Af Amer) > 60 (> 60) BUN/Creatinine Ratio 13 (6-26) Glucose 357 H (70-105) mg/dL Calculated Osmolality 295 (280-300) Calcium 9.7 (8.6-10.3) mg/dL Troponin I < 0.03 (< 0.04) ng/mL Beta-Hydroxybutyric Acd 0.10 (0.02-0.27) mmol/L 01/08/18 Range/Units 13:46 WBC (4.3-11.1) K/mcL RBC (3.82-4.97) M/mcL Hgb (11.5-15.4) g/dL Hct (35.3-44.9) % MCV (83.0-100.0) fL MCH (28.0-33.3) pg MCHC (31.6-35.5) g/dL RDW (11.5-14.5) % Plt Count (140-400) K/mcL MPV (9.4-12.4) fL Immature Gran % (0-4) % Seg Neutrophils % % Lymphocytes % % Monocytes % % Eosinophils % % Basophils % % Neutrophils # (1.6-8.9) K/mcL Lymphocytes # (0.6-4.6) K/mcL Monocytes # (0.0-1.3) K/mcL Eosinophils # (0.0-0.6) K/mcL Basophils # (0.0-0.2) K/mcL VBG pH 7.41 (7.32-7.42) pH Units VBG pCO2 41 (41-51) mmHg VBG pO2 71 H (25-50) mmHg VBG HCO3 26 (21-27) mEq/L Sodium (136-145) mEq/L Potassium (3.5-5.1) mEq/L Chloride (98-107) mEq/L Carbon Dioxide (23-29) mEq/L BUN (6-20) mg/dL Creatinine (0.60-1.20) mg/dL Est GFR ( Amer) (> 60) Est GFR (Non-Af Amer) (> 60) BUN/Creatinine Ratio (6-26) Glucose (70-105) mg/dL Calculated Osmolality (280-300) Calcium (8.6-10.3) mg/dL Troponin I (< 0.04) ng/mL Beta-Hydroxybutyric Acd (0.02-0.27) mmol/L Attestation Statement - Attestation Attestation: I examined this patient and my medical decision-making was reviewed with the Resident Physician. I agree with the documented findings, disposition and treatment plan as described except to the extent set forth below. Patient seen and evaluated by Dr. Dumont and myself, I agree with her evaluation and management plan, supervised care the patient's stay.
[2018-01-08 12:29] LABS: Basophils # 0.1 K/mcL (0.0-0.2); Basophils % 0.8 %; Eosinophils # 0.3 K/mcL (0.0-0.6); Eosinophils % 3.1 %; Hematocrit 46.8 % (35.3-44.9); Hemoglobin 16.7 g/dL (11.5-15.4); Immature Granulocytes % 0.4 % (0-4); Lymphocytes # 2.2 K/mcL (0.6-4.6); Lymphocytes % 25.6 %; Mean Corpuscular HGB Conc 35.7 g/dL (31.6-35.5); Mean Corpuscular Hemoglobin 29.3 pg (28.0-33.3); Mean Corpuscular Volume 82.1 fL (83.0-100.0); Mean Platelet Volume 9.2 fL (9.4-12.4); Monocytes # 0.4 K/mcL (0.0-1.3); Monocytes % 4.6 %; Neutrophils # 5.6 K/mcL (1.6-8.9); Platelet Count 172 K/mcL (140-400); Red Cell Distribution Width 11.9 % (11.5-14.5); Segmented Neutrophils % 65.5 %
[2018-01-08] MEDS ORDERED: *HR* HYDROcodone/Acet 5/325 mg TABLET PO ONE (12:34)
[2018-01-08 12:42] LABS: Troponin I < 0.03 ng/mL (< 0.04)
[2018-01-08 13:07] LABS: BUN/Creatinine Ratio 13 (6-26); Blood Urea Nitrogen 9 mg/dL (6-20); Calcium 9.7 mg/dL (8.6-10.3); Carbon Dioxide 22 mEq/L (23-29); Chloride 102 mEq/L (98-107); Glucose 357 mg/dL (70-105); Osmolality,Calculated 295 (280-300); Potassium 4.2 mEq/L (3.5-5.1); Sodium 136 mEq/L (136-145); eGFR For African Americans > 60 (> 60); eGFR For Non-African Americans > 60 (> 60)
[2018-01-08] MEDS ORDERED: Insulin Regular, Human 100 UNIT/ML SQ ONE (13:43)
[2018-01-08] MEDS ORDERED: *HR* Metformin 500 MG TABLET PO ONE (13:44)
[2018-01-08 13:53] LABS: VBG HCO3 26 mEq/L (21-27); VBG PCO2 41 mmHg (41-51); VBG PH 7.41 pH Units (7.32-7.42); VBG PO2 71 mmHg (25-50)
[2018-01-08] MEDS: Nitroglycerin 0.4 MG TAB.SUBL SL PRN ×2 (15:36→19:50)
[2018-01-08] MEDS ORDERED: Naloxone 0.4 MG/ML INJ IVP PRN (16:06)
[2018-01-08] MEDS ORDERED: Albuterol 2.5 MG/3 ML NEBULIZER IH PRN (16:08)
--- NOTE | 2018-01-08 16:09 | Internal Med History&Physical ---
Date of Encounter: 01/08/18 Time of Encounter: 16:04 Internal Medicine - H&P: HPI Chief complaint: chest pain Admitted From: Home Plans for Post Hospital Care: Home History of present illness: Ms. Minor is a 42 year old female with PMH obesity, hypertension, GERD, diabetes and hypothyroidism who presented to [facility] on with complaints of chest pain. She was placed in observation status for further workup and treatment. Information obtained from chart review and patient report. Per chart review patient has had multiple hospitalizations for complaint of chest pain. Most recently evaluated by cardiology on 11/2017. Presents with central chest pain that radiates to left shoulder, describes as a ripping/tearing sensation. Nothing makes better or worse. No shortness of breath. She is requesting a left heart catheterization. Past Med Surg Social Fam HX - Past Medical History Medical history: asthma, diabetes, GERD, hyperlipidemia, hypertension, thyroid disease, valvular heart disease, other Psychiatric history: anxiety, bipolar, depression - Past Surgical History Surgical History: cholecystectomy, hysterectomy, orthopedic, other, sinus surgery, other - Social History Smoking Status: Current every day smoker Smokeless Tobacco Status: No Alcohol use: none Drug use: none - Family History Father Living Status: Still Living Hx Family Cardiac Disorders: Yes (HTN, CVA) Hx Family Cancer: Yes (Lung) Hx Family GI Disorders: Yes (Ulcers, hiatal hernia) Hx Family Endocrine Disorder: Yes (DM) Hx Family Neuromuscular Disorders: No Hx Family Neurologic Disorders: No Hx Family HEENT Disorders: No Hx Family Autoimmune Disorders: No Internal Medicine - H&P: Meds Gabapentin [Neurontin] 800 mg PO 0900,1200 05/15/15 [History] Levothyroxine [Synthroid] 25 mcg PO QAM 05/15/15 [History] Metformin [Glucophage] 1,000 mg PO BIDWM 05/15/15 [History] Omeprazole [PriLOSEC] 40 mg PO HS 05/15/15 [History] Simvastatin [Zocor] 20 mg PO HS 05/15/15 [History] Albuterol Sulfate [Albuterol Inhaler] 2 puff IH Q6HR PRN 06/22/15 [History] FLUoxetine HCl [Prozac] 60 mg PO QAM 01/18/17 [History] Albuterol Neb [Proventil Neb] 2.5 mg IH TID PRN 03/07/17 [History] Ranitidine HCl [Zantac] 300 mg PO HS 03/07/17 [History] Tizanidine HCl [Zanaflex] 4 mg PO TID PRN 03/07/17 [History] Aspirin/Acetaminophen/Caffeine [Excedrin Migraine Caplet] 1 tab PO DAILY PRN [History] Gabapentin [Neurontin] 1,600 mg PO HS 04/07/17 [History] Aspirin [Ecotrin] 325 mg PO DAILY 01/08/18 [History] Insulin ASPART [Novolog Flexpen] 0 unit IJ TID PRN 01/08/18 [History] Insulin Glargine,Hum.rec.anlog [Basaglar Kwikpen U-100] 0 unit SQ DAILY PRN [History] LORazepam [Ativan] 0.5 mg PO BID PRN 01/08/18 [History] Magnesium Oxide [Mgo] 400 mg PO DAILY 01/08/18 [History] Quetiapine Fumarate [Seroquel] 50 mg PO HS 01/08/18 [History] 3 Allergy/AdvReac Type Severity Reaction Status Date / Time chlordiazepoxide Allergy Hallucinati Verified 01/08/18 15:20 [From Librax (with ng methscopolamine)] Clidinium Allergy Hallucinati Verified 01/08/18 15:20 [From Librax (with ng clidinium)] scopolamine Allergy Hallucinati Verified 01/08/18 15:20 [From Librax (with ng methscopolamine)] meperidine [From Demerol] AdvReac Rash Verified 01/08/18 15:20 metoclopramide [From Reglan] AdvReac Palpitation Verified 01/08/18 15:20 s nabumetone [From Relafen] AdvReac Palpitation Verified 01/08/18 15:20 s All Systems PM: A 10-system review of systems was performed and is negative for pertinent findings except as documented above in the HPI. - Constitutional Constitutional: no chills, no fever(s), no night sweats - EENT Eyes: no change in vision, no discharge, no pain, no photophobia Ears: no ear discharge, no ear pain, no tinnitus Nose, mouth and throat: no dysphagia, no nasal discharge, no neck pain, no sore throat - Cardiovascular Cardiovascular ROS IM: as per HPI, chest pain, no diaphoresis, no dyspnea, no lightheadedness, no palpitations, no syncope - Respiratory Respiratory: no cough, no dyspnea, no wheezing, no excessive phlegm production - Gastrointestinal Gastrointestinal: no abdominal pain, no diarrhea, no hematemesis, no hematochezia, no melena, no nausea, no vomiting - Genitourinary Genitourinary: no change in urinary stream, no dysuria, no flank pain, no hematuria - Musculoskeletal Musculoskeletal ROS IM: no numbness, no tingling - Integumentary Integumentary IM: no rash, no unusual bruising - Neurological Neurological ROS: no confusion, no convulsions, no focal weakness, no numbness, no tingling, no tremor(s) - Hematologic/Lymphatic Hematologic/Lymphatic: no easy bruising - Constitutional Vitals: Temp Pulse Resp BP Pulse Ox 98.3 F 78 16 148/89 97 01/08/18 12:06 01/08/18 15:37 01/08/18 15:37 01/08/18 15:37 01/08/18 15:37 General appearance: Present: A&O X 3, no acute distress - Head Head exam: Present: atraumatic, normocephalic - Eye Eye exam: Present: PERRL, conjuntiva pink, sclera anicteric Pupils: Present: PERRL - Neck Neck exam general surgery: Present: supple, trachea midline. Absent: lymphadenopathy - Respiratory Respiratory exam: Present: CTAB. Absent: accessory muscle use, rales, rhonchi, wheezes - Cardiovascular Cardiovascular exam: Present: RRR, +S1, +S2. Absent: diastolic murmur, gallop, rubs, systolic murmur Additional comments: Tele:NSR - GI/Abdominal GI/Abdominal exam: Present: normal bowel sounds, soft, no peritoneal signs. Absent: distended, tenderness - Extremities Exam Extremities exam: Present: warm, radial pulses palpable and symmetrical. Absent : calf tenderness, cyanotic, pedal edema - Neurological Exam Neurological exam: Present: CN II-XII intact, oriented X3, no focal deficits. Absent: pronater drift, facial droop, speech deficit - Skin Skin exam: Present: dry, intact Internal Med - H&P Results - Labs CBC & Chem 7: 01/08/18 12:08 01/08/18 12:08 - Assessment and plan (1) Chest pain Current Visit: Yes Status: Acute Assessment and plan: recurrent. Presented with central chest pain; burping/tearing sensation that radiated to left shoulder. Was seen at outside hospital for same symptoms and reportedly chest CTA negative for pulmonary embolism. 11/24/17 TTE with EF 65%, normal ventricular systolic/diastolic dysfunction, no wall motion abnormalities. Initial troponin negative, EKG without acute ST changes. Continue to cycle troponins, request outside hospital chest CTA records. Cardiology consulted. Cont ASA Qualifiers: Chest pain type: unspecified Qualified Code(s): R07.9 - Chest pain, unspecified (2) GERD (gastroesophageal reflux disease) Current Visit: No Status: Acute Assessment and plan: per hx. Cont home PPI Qualifiers: Esophagitis presence: without esophagitis Qualified Code(s): K21.9 - Gastro -esophageal reflux disease without esophagitis (3) Type 2 diabetes mellitus Current Visit: No Status: Chronic Assessment and plan: per hx. uncontrolled, Hgb A1c 11.3%. Holding home oral hypoglycemics. SSI. Monitor blood sugar and titrate PRN Qualifiers: Diabetes mellitus senior living insulin use: with senior living use Diabetes mellitus complication status: without complication Qualified Code(s): E11.9 - Type 2 diabetes mellitus without complications; Z79.4 - intermediate manager (current) use of insulin; Z79.4 - correction (current) use of insulin; Z79.4 - intermediate manager ( current) use of insulin; Z79.4 - correction (current) use of insulin (4) Bipolar II disorder Current Visit: No Status: Chronic Assessment and plan: per hx. Cont home medication. (5) DVT prophylaxis Current Visit: Yes Status: Acute Assessment and plan: heparin - Time Spent With Patient Total time spent is greater than 50% in coordination of care (as documented) at patient's floor/unit and/or counseling patient:
[2018-01-08] MEDS ORDERED: *HR* Dextrose 50 % in Water (Syg) 50 ML SYRINGE IVP PRN (16:10)
[2018-01-08] MEDS ORDERED: Dextrose Gel 15 GM/37.5 ML TUBE PO PRN ×2 (16:10)
[2018-01-08] MEDS ORDERED: D5% in Water 1,000 ML IVC PRN (16:10)
[2018-01-08] MEDS: Insulin LISPRO 300 UNITS/3 ML VIAL SQ SCH ×2 (19:42→21:45)
[2018-01-08] MEDS: *HR* LORazepam 0.5 MG TABLET PO PRN (20:06)
[2018-01-08] MEDS: tiZANidine 4 MG TABLET PO PRN (20:06)
[2018-01-08] MEDS: Gabapentin 400 MG CAPSULE PO SCH (20:07)
[2018-01-08] MEDS: Famotidine 20 MG TABLET PO SCH (20:08)
[2018-01-08] MEDS: *HR* Heparin 5,000 UNIT/ML VIAL SQ SCH (20:08)
[2018-01-09 00:51] LABS: Hematocrit 44.3 % (35.3-44.9); Hemoglobin 15.6 g/dL (11.5-15.4); Mean Corpuscular HGB Conc 35.2 g/dL (31.6-35.5); Mean Corpuscular Hemoglobin 29.9 pg (28.0-33.3); Mean Platelet Volume 9.1 fL (9.4-12.4); Platelet Count 166 K/mcL (140-400); Red Blood Count 5.21 M/mcL (3.82-4.97)
[2018-01-09 01:04] LABS: Alanine Aminotransferase 22 Units/L (7-52); Albumin 3.6 g/dL (3.5-5.7); Albumin/Globulin Ratio 1.6 (1.1-2.2); Alkaline Phosphatase 48 Units/L (34-104); Aspartate Amino Transferase 19 Units/L (13-39); BUN/Creatinine Ratio 14 (6-26); Bilirubin,Total 0.4 mg/dL (0.3-1.0); Blood Urea Nitrogen 10 mg/dL (6-20); Calcium 8.9 mg/dL (8.6-10.3); Carbon Dioxide 26 mEq/L (23-29); Chloride 104 mEq/L (98-107); Chol/HDL Ratio 5.7 (0-4.9); Cholesterol 149 mg/dL (< 200); Globulin 2.2 g/dL (2.4-3.5); Glucose 288 mg/dL (70-105); HDL Cholesterol 26 mg/dL (40-59); LDL Cholesterol,Calculated 75 mg/dL (0-99); Osmolality,Calculated 294 (280-300); Potassium 3.9 mEq/L (3.5-5.1); Sodium 137 mEq/L (136-145); Total Protein 5.8 g/dL (6.4-8.9); Triglycerides 240 mg/dL (< 150); eGFR For African Americans > 60 (> 60); eGFR For Non-African Americans > 60 (> 60)
[2018-01-09] MEDS: Levothyroxine 25 MCG TABLET PO SCH (05:50)
[2018-01-09] MEDS: *HR* Heparin 5,000 UNIT/ML VIAL SQ SCH ×3 (05:51→20:58)
[2018-01-09] MEDS: Nitroglycerin 0.4 MG TAB.SUBL SL PRN ×2 (06:54→13:50)
[2018-01-09] MEDS: Gabapentin 400 MG CAPSULE PO SCH ×3 (09:36→20:57)
[2018-01-09] MEDS: FLUoxetine 20 MG CAPSULE PO SCH (09:36)
[2018-01-09] MEDS: Aspirin Enteric Coated 325 MG Tablet PO SCH (09:36)
[2018-01-09] MEDS: Insulin LISPRO 300 UNITS/3 ML VIAL SQ SCH ×4 (09:37→21:06)
[2018-01-09] MEDS: tiZANidine 4 MG TABLET PO PRN ×2 (09:41→20:57)
[2018-01-09] MEDS: *HR* LORazepam 0.5 MG TABLET PO PRN ×2 (09:41→20:57)
[2018-01-09] MEDS ORDERED: Ondansetron ODT 4 MG TAB.RAPDIS SL PRN (10:41)
[2018-01-09 12:32] LABS: Estimated Average Glucose 255 mg/dl; Hemoglobin A1C 10.5 %
--- NOTE | 2018-01-09 12:47 | Cardiology Consult Note ---
<Krish Mcallister Erick - Last Filed: 01/09/18 15:25> Date of Encounter: 01/09/18 Time of Encounter: 12:05 Assessment and Plan (1) Atypical chest pain Current Visit: Yes Status: Acute Atypical CP symptoms. EKG without signs of ischemia. Troponin negative x3. Unlikely ACS Recent NM stress and TTE without signs indicating ischemia Cardiac Risk: HLD, HTN, DM, tobacco use, family history Unlikely to do LHC with negative work-up thus far Continue ASA, statin, nitro PRN Final recommendations pending Dr. Delacruz's evaluation (2) Hypertension Current Visit: Yes Status: Chronic Hx of HTN, previously on Lisinopril - no longer taking it Qualifiers: Hypertension type: essential hypertension Qualified Code(s): I10 - Essential (primary) hypertension (3) GERD (gastroesophageal reflux disease) Current Visit: Yes Status: Chronic May be contributing to her pain - reports recent endoscopy. Continue medical management Qualifiers: Esophagitis presence: esophagitis presence not specified Qualified Code(s) : K21.9 - Gastro-esophageal reflux disease without esophagitis (4) Type 2 diabetes mellitus Current Visit: Yes Status: Chronic DM has not been well controlled. Hx of gastroparesis - may be contributing to worsening GERD Qualifiers: Diabetes mellitus snf insulin use: with long term care administrator use Diabetes mellitus complication status: with other specified complication Qualified Code (s): E11.69 - Type 2 diabetes mellitus with other specified complication; Z79.4 - [facility] (current) use of insulin; Z79.4 - roasterman (current) use of insulin ; Z79.4 - roasterman (current) use of insulin; Z79.4 - roasterman (current) use of insulin Discussion w patient/family: The assessment and plan as outlined above was discussed with the patient and/or family members who expressed understanding and agreement. All questions were answered. Thank you for involving us in the care of your patient. Please call with any questions. History of Present Illness Consult date: 01/09/18 Requesting physician: Honey Linda Consult reason: chest pain Chief complaint: chest pain History of present illness: Ms. Minor is a 42 year old female with PMH of bicuspid aortic valve, HLD, HTN, DM, gastroparesis, GERD, hypothyroidism, anxiety, bipolar, and tobacco use, admitted to the hospital for chest pain. She reports intermittent central ripping/tearing chest pain radiating to the left shoulder. Symptoms usually happen at rest or laying down, resolve after a few minutes, and may happen multiple times a day. It does not occur or worsen with exertion. She states she has been to several hospitals previously for this pain with negative ischemic work-up thus far. Most recently in [place] and reports they did a CT scan without abnormal findings. She reports to having chest pain about 5 years ago and ultimately had LHC in [place] with no findings. She also reports intermittent symptoms of dyspnea, nausea, racing HR, dizziness - described as feeling like her sugar is low, difficulty with words, tinnitus, and hot/cold intolerance. She states she has not been able to eat much recently due to her gastroparesis. She is concerned about her heart because of the findings of bicuspid aortic valve and moderate aortic regurgitation. She reports a family history of grandmother needing a pacemaker at age 60 and passing due to cardiac problems at 65, and a mother who has heart disease as well. Cardiac risk factors with DM, HTN, HLD, and tobacco use. Prior Cardiac Imaging: - TTE 11/24/17: LVEF 65%, normal LV systolic and diastolic function, no wall abnormalities, bicuspid aortic valve and moderate AR - Stress 10/2017: negative for ischemia, EF 69% - LHC about 5 years ago without disease Past Med Surg Social Fam HX - Past Medical History Medical history: asthma, diabetes, GERD, hyperlipidemia, hypertension, thyroid disease, valvular heart disease, other Psychiatric history: anxiety, bipolar, depression - Past Surgical History Surgical History: cholecystectomy, hysterectomy, orthopedic, other, sinus surgery, other - Social History Smoking Status: Current every day smoker Smokeless Tobacco Status: No Alcohol use: none Drug use: none - Family History Father Living Status: Still Living Hx Family Cardiac Disorders: Yes (HTN, CVA) Hx Family Cancer: Yes (Lung) Hx Family GI Disorders: Yes (Ulcers, hiatal hernia) Hx Family Endocrine Disorder: Yes (DM) Hx Family Neuromuscular Disorders: No Hx Family Neurologic Disorders: No Hx Family HEENT Disorders: No Hx Family Autoimmune Disorders: No Medications and Allergies Gabapentin [Neurontin] 800 mg PO 0900,1200 05/15/15 [History] Levothyroxine [Synthroid] 25 mcg PO QAM 05/15/15 [History] Metformin [Glucophage] 1,000 mg PO BIDWM 05/15/15 [History] Omeprazole [PriLOSEC] 40 mg PO HS 05/15/15 [History] Simvastatin [Zocor] 20 mg PO HS 05/15/15 [History] Albuterol Sulfate [Albuterol Inhaler] 2 puff IH Q6HR PRN 06/22/15 [History] FLUoxetine HCl [Prozac] 60 mg PO QAM 01/18/17 [History] Albuterol Neb [Proventil Neb] 2.5 mg IH TID PRN 03/07/17 [History] Ranitidine HCl [Zantac] 300 mg PO HS 03/07/17 [History] Tizanidine HCl [Zanaflex] 4 mg PO TID PRN 03/07/17 [History] Aspirin/Acetaminophen/Caffeine [Excedrin Migraine Caplet] 1 tab PO DAILY PRN [History] Gabapentin [Neurontin] 1,600 mg PO HS 04/07/17 [History] Aspirin [Ecotrin] 325 mg PO DAILY 01/08/18 [History] Insulin ASPART [Novolog Flexpen] 0 unit IJ TID PRN 01/08/18 [History] Insulin Glargine,Hum.rec.anlog [Basaglar Kwikpen U-100] 0 unit SQ DAILY PRN [History] LORazepam [Ativan] 0.5 mg PO BID PRN 01/08/18 [History] Magnesium Oxide [Mgo] 400 mg PO DAILY 01/08/18 [History] Quetiapine Fumarate [Seroquel] 50 mg PO HS 01/08/18 [History] 3 Allergy/AdvReac Type Severity Reaction Status Date / Time chlordiazepoxide Allergy Hallucinati Verified 01/08/18 15:20 [From Librax (with ng methscopolamine)] Clidinium Allergy Hallucinati Verified 01/08/18 15:20 [From Librax (with ng clidinium)] scopolamine Allergy Hallucinati Verified 01/08/18 15:20 [From Librax (with ng methscopolamine)] meperidine [From Demerol] AdvReac Rash Verified 01/08/18 15:20 metoclopramide [From Reglan] AdvReac Palpitation Verified 01/08/18 15:20 s nabumetone [From Relafen] AdvReac Palpitation Verified 01/08/18 15:20 s All Systems Review: The remainder of the systems were reviewed and are negative Physical Examination Vital Signs, Last 4 Hours Temp Pulse Resp BP Pulse Ox 01/09/18 11:25 97.9 F 75 18 128/81 98 General: Conversant, No Apparent Distress HEENT: Atraumatic, Normocephaly, Mucus Membranes Moist Neck: No JVD, Normal carotid pulses Cardiac: Reg Rate and Rhythm, Normal S1 and S2, No Murmur Lungs: Normal Breath Sounds, No Wheeze, Rales, Rhonchi Neuro: Alert and responsive, No focal deficits noted Abdomen: Soft, Non-Tender Skin: No rashes noted on visualized skin Musculoskeletal: No Chest Wall Tenderness Extremities: No Clubbing, No Cyanosis, No Edema, Normal Pulses Results 01/09/18 00:28 01/09/18 00:28 Lab Results 01/08/18 01/09/18 01/09/18 17:47 00:28 00:28 WBC 9.0 Hgb 15.6 H Hct 44.3 Plt Count 166 Sodium Potassium Chloride Carbon Dioxide BUN Creatinine Glucose Calcium Total Bilirubin AST ALT Alkaline Phosphatase Troponin I < 0.03 < 0.03 B-Natriuretic Peptide 01/09/18 01/09/18 00:28 00:28 WBC Hgb Hct Plt Count Sodium 137 Potassium 3.9 Chloride 104 Carbon Dioxide 26 BUN 10 Creatinine 0.69 Glucose 288 H Calcium 8.9 Total Bilirubin 0.4 AST 19 ALT 22 Alkaline Phosphatase 48 Troponin I B-Natriuretic Peptide 56 Consult Discharge Plan - Plan Referrals: Kana Newberry MD [Primary Care Provider] - <Tashi Delacruz - Last Filed: 01/10/18 11:35> Date of Encounter: 01/10/18 - Attending Attestation I examined this patient and my medical decision-making was reviewed with the Resident Physician. I agree with the documented findings, disposition and treatment plan as described except to the extent set forth below. Known bicuspid aortic valve, otherwise cardiac testing has been normal. Presents with very atypical symptoms and multiple complaints. Doubt ACS. Would recommend empiric medical mgmt. Assessment and Plan Discussion w patient/family: The assessment and plan as outlined above was discussed with the patient and/or family members who expressed understanding and agreement. All questions were answered. Thank you for involving us in the care of your patient. Please call with any questions. History of Present Illness History of present illness: Ms. Minor is a 42 year old female All Systems Review: The remainder of the systems were reviewed and are negative Physical Examination Vital Signs, Last 4 Hours Temp Resp BP Pulse Ox 01/10/18 11:30 98.3 F 18 139/82 98 Results 01/09/18 00:28 01/09/18 00:28
--- NOTE | 2018-01-09 14:22 | Internal Med Progress Note ---
Date of Encounter: 01/09/18 Time of Encounter: 09:20 - Assessment and plan (1) Bipolar II disorder Current Visit: Yes Status: Chronic Assessment and plan: Chronic. Continue home medications. (2) Type 2 diabetes mellitus Current Visit: Yes Status: Chronic Assessment and plan: Chronic. Diabetes uncontrolled, Hgb A1c 11.3%. Continue SSI, accucheckes achs, diabetic diet. 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 Continue PPI. Pt denies new or worse symptoms. Qualifiers: Esophagitis presence: esophagitis presence not specified Qualified Code(s) : K21.9 - Gastro-esophageal reflux disease without esophagitis (4) Chest pain Current Visit: Yes Status: Acute Assessment and plan: Onset in October, pain she is having this visit is no different or worse than it has been since October. Pt has had stress in Oct at [facility] and echo here in November,. Pt states that she has been to several hospitals requesting LHC and 'no one will do it." She asked me to ask cardiology here to do it so she will know what is wrong. She is currently pain free and pain is not rerproducible. 11/24/17 TTE with EF 65%, normal ventricular systolic/diastolic dysfunction, no wall motion abnormalities. Troponins negative, EKG without acute ST changes. Chest xray negative. Cardiology consulted. Pain control. Continue telemetry. Qualifiers: Chest pain type: unspecified Qualified Code(s): R07.9 - Chest pain, unspecified (5) DVT prophylaxis Current Visit: Yes Status: Acute Assessment and plan: Heparin SQ BID. - Time Spent With Patient Total time spent is greater than 50% in coordination of care (as documented) at patient's floor/unit and/or counseling patient: less than 15 minutes - Subjective Interval history: Pt was seen and assessed at 0920a.m. Pt is alert and awake, denies n/v/d. Reports recent history of left chest "ripping pain" that extends into left lateral neck and left shoulder blade with SOB. Onset of pain in October. Pt has been to multiple hospitals trying to get someone to do LHC. She has had negative workups to this point. She reports that she had echo in November and stress at [facility] in Oct. She reports that she has also been seen at [facility] in [place], [facility], and [facility]. Pt denies pain currently. She denies headache, SOB, abdominal pain, n/v/d, diaphoresis, or vision changes. - Constitutional Vitals: Temp Pulse Resp BP Pulse Ox 97.9 F 79 16 147/88 99 01/09/18 11:25 01/09/18 13:49 01/09/18 13:49 01/09/18 13:49 01/09/18 13:49 General appearance: Present: A&O X 3, pleasant, no acute distress, answers questions appropriately - Head Head exam: Present: atraumatic, normal inspection, normocephalic - Eye Eye exam: Present: normal appearance, conjuntiva pink, sclera anicteric - Neck Neck exam general surgery: Present: normal inspection, supple, trachea midline. Absent: lymphadenopathy - Respiratory Respiratory exam: Present: CTAB. Absent: accessory muscle use, rales, rhonchi, wheezes - Cardiovascular Cardiovascular exam: Present: RRR, +S1, +S2. Absent: diastolic murmur, gallop, rubs, systolic murmur - GI/Abdominal GI/Abdominal exam: Present: normal bowel sounds, soft. Absent: distended, tenderness - Extremities Exam Extremities exam: Present: normal capillary refill, normal inspection, warm, radial pulses palpable and symmetrical. Absent: calf tenderness, cyanotic, pedal edema, tenderness - Neurological Exam Neurological exam: Present: alert, oriented X3, no focal deficits. Absent: facial droop, speech deficit - Skin Skin exam: Present: dry, intact, warm. Absent: rash Internal Medicine: Result - Labs CBC & Chem 7: 01/09/18 00:28 01/09/18 00:28 Labs: Short CBC 01/09/18 Range/Units 00:28 WBC 9.0 (4.3-11.1) K/mcL Hgb 15.6 H (11.5-15.4) g/dL Hct 44.3 (35.3-44.9) % Plt Count 166 (140-400) K/mcL BMP 01/09/18 00:28 Sodium 137 Potassium 3.9 Chloride 104 Carbon Dioxide 26 BUN 10 Creatinine 0.69 Glucose 288 H Calcium 8.9 Cardiac Enzymes 01/08/18 01/09/18 Range/Units 17:47 00:28 Troponin I < 0.03 < 0.03 (< 0.04) ng/mL Liver Function 01/09/18 Range/Units 00:28 Total Bilirubin 0.4 (0.3-1.0) mg/dL AST 19 (13-39) Units/L ALT 22 (7-52) Units/L Alkaline Phosphatase 48 (34-104) Units/L Albumin 3.6 (3.5-5.7) g/dL Consult Discharge Plan - Plan Referrals: Kana Newberry MD [Primary Care Provider] -
[2018-01-09] MEDS ORDERED: Heparin 1,000 UNITS/500 mL 500 ML ONE (15:22)
[2018-01-09] MEDS ORDERED: 0.9 % Sodium Chloride 1,000 ML ONE (15:22)
[2018-01-09] MEDS ORDERED: *HR* Heparin 10,000 UNIT/10 ML VIAL ONE (15:23)
[2018-01-09] MEDS: Famotidine 20 MG TABLET PO SCH (20:56)
[2018-01-10] MEDS: Levothyroxine 25 MCG TABLET PO SCH (05:43)
[2018-01-10] MEDS: *HR* Heparin 5,000 UNIT/ML VIAL SQ SCH (05:43)
[2018-01-10] MEDS: Insulin LISPRO 300 UNITS/3 ML VIAL SQ SCH ×2 (08:39→11:42)
[2018-01-10] MEDS: FLUoxetine 20 MG CAPSULE PO SCH (08:48)
[2018-01-10] MEDS: Aspirin Enteric Coated 325 MG Tablet PO SCH (08:49)
[2018-01-10] MEDS: Gabapentin 400 MG CAPSULE PO SCH (08:50)
[2018-01-10] MEDS ORDERED: Isosorbide MONOnitrate (24 HR) 60 MG TAB.ER.24H PO SCH (10:00)
[2018-01-10] MEDS ORDERED: Isosorbide MONOnitrate (24 HR) 30 MG TAB.ER.24H PO SCH (10:30)
--- NOTE | 2018-01-10 10:33 | Cardiology Progress Note ---
Date of Encounter: 01/10/18 Time of Encounter: 10:20 Assessment and Plan (1) Atypical chest pain Current Visit: Yes Status: Acute Atypical CP symptoms. EKG without signs of ischemia. Troponin negative x3. Unlikely ACS Recent NM stress and TTE without signs indicating ischemia Cardiac Risk: HLD, HTN, DM, tobacco use, family history Will not proceed with LHC Continue ASA, statin, nitro PRN Continue Metoprolol 12.5 BID and Imdur 30mg as out-pt - she already has a f/u appointment scheduled Cardiology will sign-off - reconsult as needed Discussed the case with Dr. Delacruz (2) Hypertension Current Visit: Yes Status: Chronic Hx of HTN, previously on Lisinopril - no longer taking it Add BB Qualifiers: Hypertension type: essential hypertension Qualified Code(s): I10 - Essential (primary) hypertension (3) GERD (gastroesophageal reflux disease) Current Visit: Yes Status: Chronic May be contributing to her pain - reports recent endoscopy. Continue medical management Qualifiers: Esophagitis presence: esophagitis presence not specified Qualified Code(s) : K21.9 - Gastro-esophageal reflux disease without esophagitis (4) Type 2 diabetes mellitus Current Visit: Yes Status: Chronic DM has not been well controlled. 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 All questions were answered. Thank you for involving us in the care of your patient. Please call with any questions. Subjective Principal diagnosis: Chest Pain Interval history: Pt seen and exmained. Denies chest pain now. Reports her symptoms are improving. Discussed with her that cardiology will not be proceeding with a LHC. Will be starting some new meds to help her symptoms. She is in agreement with this plan. Objective Vital Signs, Last 4 Hours Temp Pulse Resp BP Pulse Ox 01/10/18 06:46 97.9 F 68 16 146/83 97 General: Conversant, No Apparent Distress HEENT: Atraumatic, Normocephaly, Mucus Membranes Moist Neck: No JVD, Normal carotid pulses Cardiac: Reg Rate and Rhythm, Normal S1 and S2, No Murmur Lungs: Normal Breath Sounds, No Wheeze, Rales, Rhonchi Neuro: Alert and responsive, No focal deficits noted Abdomen: Soft, Non-Tender Skin: No rashes noted on visualized skin Musculoskeletal: No Chest Wall Tenderness Extremities: No Clubbing, No Cyanosis, No Edema, Normal Pulses Results 01/09/18 00:28 01/09/18 00:28 Consult Discharge Plan - Plan Referrals: Kana Newberry MD [Primary Care Provider] -
[2018-01-10 11:31] VITALS: BP 139/82
--- NOTE | 2018-01-10 11:35 | Discharge Summary ---
- NOTES TO OUTPATIENT PROVIDER Notes to Outpatient Provider: Pt presented to ED with c/o chest pain. Pt did not have chest pain after admission. Pt has been seen by cardiology and has had a BB and long-acting nitrate added to her medication regimen. They have signed off and do not deem LHC necessary at this time. Pt will follow up in the office next week. Date of Encounter: 01/10/18 Time of Encounter: 10:05 - Discharge Diagnosis (1) Bipolar II disorder Priority: Secondary Status: Chronic Assessment and Plan: Chronic. Continue Seroquel, Prozac. (2) Type 2 diabetes mellitus Priority: Secondary Status: Chronic Assessment and Plan: Chronic. Continue home medications: Novolog, Basaglar. Diabetes uncontrolled, A1c 11/3%. Better glycemic control, diet exercise after discharge. Pt could benefit from diabetes education. Qualifiers: Diabetes mellitus long term acute care registered nurse insulin use: with long term acute care registered nurse use Diabetes mellitus complication status: with other specified complication Qualified Code (s): E11.69 - Type 2 diabetes mellitus with other specified complication; Z79.4 - longterm (current) use of insulin; Z79.4 - longterm (current) use of insulin ; Z79.4 - longterm (current) use of insulin; Z79.4 - termite renewal inspector (current) use of insulin (3) GERD (gastroesophageal reflux disease) Priority: Secondary Status: Chronic Assessment and Plan: Chronic. Continue Zantac. Qualifiers: Esophagitis presence: esophagitis presence not specified Qualified Code(s) : K21.9 - Gastro-esophageal reflux disease without esophagitis (4) Chest pain Priority: Secondary Status: Acute Assessment and Plan: Pt remains pain free today. She has been evaluated by cardiology, LHC not necessary at this time. Pt will follow up in the office next week. She has been started on Imdur 30mg po daily and Lopressor 12.5mg po BID, continue after discharge. Qualifiers: Chest pain type: unspecified Qualified Code(s): R07.9 - Chest pain, unspecified (5) DVT prophylaxis Priority: Secondary Status: Acute Assessment and Plan: Heparin SQ BID. Pt is ambulatory in the room. Hospital course: Ms. Mionr is a 42 year old female - Time Spent with Patient Total time spent providing and/or coordinating discharge services: - Discharge Medications Prescriptions: Isosorbide MONOnitrate (24 HR) [Imdur] 30 mg PO DAILY #30 tab.er.24h Metoprolol [Lopressor] 12.5 mg PO BID #15 tablet Home Medications: Gabapentin [Neurontin] 800 mg PO 0900,1200 05/15/15 [History] Levothyroxine [Synthroid] 25 mcg PO QAM 05/15/15 [History] Metformin [Glucophage] 1,000 mg PO BIDWM 05/15/15 [History] Omeprazole [PriLOSEC] 40 mg PO HS 05/15/15 [History] Simvastatin [Zocor] 20 mg PO HS 05/15/15 [History] Albuterol Sulfate [Albuterol Inhaler] 2 puff IH Q6HR PRN 06/22/15 [History] FLUoxetine HCl [Prozac] 60 mg PO QAM 01/18/17 [History] Albuterol Neb [Proventil Neb] 2.5 mg IH TID PRN 03/07/17 [History] Ranitidine HCl [Zantac] 300 mg PO HS 03/07/17 [History] Tizanidine HCl [Zanaflex] 4 mg PO TID PRN 03/07/17 [History] Aspirin/Acetaminophen/Caffeine [Excedrin Migraine Caplet] 1 tab PO DAILY PRN [History] Gabapentin [Neurontin] 1,600 mg PO HS 04/07/17 [History] Aspirin [Ecotrin] 325 mg PO DAILY 01/08/18 [History] Insulin ASPART [Novolog Flexpen] 0 unit IJ TID PRN 01/08/18 [History] Insulin Glargine,Hum.rec.anlog [Basaglar Kwikpen U-100] 0 unit SQ DAILY PRN [History] LORazepam [Ativan] 0.5 mg PO BID PRN 01/08/18 [History] Magnesium Oxide [Mgo] 400 mg PO DAILY 01/08/18 [History] Quetiapine Fumarate [Seroquel] 50 mg PO HS 01/08/18 [History] Isosorbide MONOnitrate (24 HR) [Imdur] 30 mg PO DAILY #30 tab.er.24h 01/10/18 [ Rx] Metoprolol [Lopressor] 12.5 mg PO BID #15 tablet 01/10/18 [Rx] Allergies/Adverse Reactions: 3 Allergy/AdvReac Type Severity Reaction Status Date / Time chlordiazepoxide Allergy Hallucinati Verified 01/08/18 15:20 [From Librax (with ng methscopolamine)] Clidinium Allergy Hallucinati Verified 01/08/18 15:20 [From Librax (with ng clidinium)] scopolamine Allergy Hallucinati Verified 01/08/18 15:20 [From Librax (with ng methscopolamine)] meperidine [From Demerol] AdvReac Rash Verified 01/08/18 15:20 metoclopramide [From Reglan] AdvReac Palpitation Verified 01/08/18 15:20 s nabumetone [From Relafen] AdvReac Palpitation Verified 01/08/18 15:20 s Date of admission: 01/08/18 15:31 Primary care physician: Kana Newberry MD Consults: 01/08/18 18:41 Consult to Drone Software Development Engineer [CONS] Routine Reason for SW Consult: readmission 01/09/18 10:41 Consult to Cardiology [CONS] Routine Comment: Consulting Provider: Cardiology Velpen Reason for Consult: chest pain Time Notified: 10:42 Call Completed: Yes Discharging clinician: Honey Linda Anticipated date of discharge: 01/10/18 - Constitutional Vitals: Temp Pulse Resp BP Pulse Ox 98.3 F 68 18 139/82 98 01/10/18 11:30 01/10/18 06:46 01/10/18 11:30 01/10/18 11:30 01/10/18 11:30 General appearance: Present: cooperative, A&O X 3, pleasant, no acute distress, answers questions appropriately - Head Head exam: Present: atraumatic, normal inspection, normocephalic - Eye Eye exam: Present: normal appearance, conjuntiva pink, sclera anicteric - Neck Neck exam general surgery: Present: supple, trachea midline. Absent: lymphadenopathy - Respiratory Respiratory exam: Present: CTAB. Absent: accessory muscle use, chest wall tenderness, rales, respiratory distress, rhonchi, wheezes - Cardiovascular Cardiovascular exam: Present: RRR, +S1, +S2. Absent: diastolic murmur, gallop, rubs, systolic murmur - GI/Abdominal GI/Abdominal exam: Present: normal bowel sounds, soft. Absent: distended, hepatomegaly, tenderness - Extremities Exam Extremities exam: Present: normal capillary refill, normal inspection, warm, radial pulses palpable and symmetrical. Absent: calf tenderness, cyanotic, pedal edema, tenderness - Neurological Exam Neurological exam: Present: alert, oriented X3, no focal deficits. Absent: altered, facial droop, speech deficit - Skin Skin exam: Present: dry, intact, normal color, warm. Absent: rash - Patient Status Disposition: Home, Self-Care Condition: Good Functional capacity at discharge: independent ambulation Overall status at discharge: patient is back to baseline - Discharge Instructions Follow Up With: Kana Newberry MD [Primary Care Provider] - Additional Instructions: Please follow up with cardiology as scheduled and with your PCP in the next 5-7 days. Take your medications as directed. Your new prescriptions have been called to the [facility]. Return to the ER as needed for any other problems or concerns, or if your symptoms return or worsen. Your A1c is out of control. I think you could benefit from diabetes education, discuss this with your doctor. Diabetes, especially uncontrolled diabetes is a leading risk factor for cardiovascular disease. Make sure that you are following an ADA diet and exercising daily. Resume your other home medications and resume normal activities as tolerated. - Diet and Activity Activity: resume usual activities as tolerated Diet: diabetic diet, low fat, low cholesterol
--- NOTE | 2018-01-11 16:32 | Electrocardiograph Report ---
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
== END 2018-01-10 14:58 | disposition home or self-care (01) ==
LOC: EMEROO 11:51 → 3BNU 11:51
PROVIDERS: ADMIT Registered Nurse; ATTEND Registered Nurse

== ENCOUNTER 2018-01-15 15:59 | Observation (INO) ==
--- NOTE | 2018-01-15 16:06 | Emergency Department Note ---
Disposition Clinical Impression: Chest pain Disposition: Admitted As Inpatient Condition: Good Forms: ED Satisfaction Letter Time of Disposition: 17:39 Chest Pain HPI - General Chief Complaint: ED Chest Pain Stated Complaint: chest pain Time Seen by Provider: 01/15/18 16:02 Source: patient Mode of arrival: ambulatory Limitations: no limitations Vital Signs Reviewed: Yes Nursing Notes Reviewed: Yes - History of Present Illness HPI Narrative: Patient presents to the ED with chief complaint of chest pain. Patient reports she has had 2 heart attacks in the past but has not required stenting. Was admitted recently and was scheduled to have a left heart catheter but she states that they decided to manage her medically. She started having some discomfort in her chest last night. It has gotten worse today. Intermittent in nature, states like someone is squeezing her heart. X-ray short of breath and sometimes diaphoretic. Some nausea but no vomiting. No abdominal pain, pain or swelling in her legs. States that she thinks she will need heart catheter this time. - Related Data Home Medications Medication Instructions Recorded Confirmed Gabapentin [Neurontin] 800 mg PO 0900,1200 05/15/15 01/15/18 Levothyroxine [Synthroid] 25 mcg PO QAM 05/15/15 01/15/18 Metformin [Glucophage] 1,000 mg PO BIDWM 05/15/15 01/15/18 Omeprazole [PriLOSEC] 40 mg PO HS 05/15/15 01/15/18 Simvastatin [Zocor] 20 mg PO HS 05/15/15 01/15/18 Albuterol Sulfate [Albuterol 2 puff IH Q6HR PRN 06/22/15 01/15/18 Inhaler] FLUoxetine HCl [Prozac] 60 mg PO QAM 01/18/17 01/15/18 Albuterol Neb [Proventil Neb] 2.5 mg IH TID PRN 03/07/17 01/15/18 Ranitidine HCl [Zantac] 300 mg PO HS 03/07/17 01/15/18 Tizanidine HCl [Zanaflex] 4 mg PO TID PRN 03/07/17 01/15/18 Aspirin/Acetaminophen/Caffeine 1 tab PO DAILY PRN 04/07/17 01/15/18 [Excedrin Migraine Caplet] Gabapentin [Neurontin] 1,600 mg PO HS 04/07/17 01/15/18 Aspirin [Ecotrin] 325 mg PO DAILY 01/08/18 01/15/18 Insulin ASPART [Novolog Flexpen] 2 - 20 unit SQ TID PRN 01/08/18 01/15/18 Insulin Glargine,Hum.rec.anlog 30 unit SQ HS 01/08/18 01/15/18 [Basaglar Kwikpen U-100] LORazepam [Ativan] 0.5 mg PO BID PRN 01/08/18 01/15/18 Magnesium Oxide [Mgo] 400 mg PO DAILY 01/08/18 01/15/18 Quetiapine Fumarate [Seroquel] 50 mg PO HS 01/08/18 01/15/18 Previous Rx's Medication Instructions Recorded Isosorbide MONOnitrate (24 HR) 30 mg PO DAILY #30 tab.er.24h 01/10/18 [Imdur] Metoprolol [Lopressor] 12.5 mg PO BID #15 tablet 01/10/18 Allergies Allergy/AdvReac Type Severity Reaction Status Date / Time chlordiazepoxide Allergy Hallucinati Verified 01/08/18 15:20 [From Librax (with ng methscopolamine)] Clidinium Allergy Hallucinati Verified 01/08/18 15:20 [From Librax (with ng clidinium)] scopolamine Allergy Hallucinati Verified 01/08/18 15:20 [From Librax (with ng methscopolamine)] meperidine [From Demerol] AdvReac Rash Verified 01/08/18 15:20 metoclopramide [From Reglan] AdvReac Palpitation Verified 01/08/18 15:20 s nabumetone [From Relafen] AdvReac Palpitation Verified 01/08/18 15:20 s Review of Systems: As reviewed in the HPI. All other systems reviewed are negative or normal. Chest Pain PMH - Past Medical History Medical history: Reports: asthma, diabetes, GERD, hyperlipidemia, hypertension, thyroid disease, valvular heart disease, other Surgical history: Reports: cholecystectomy, hysterectomy, orthopedic, other, sinus surgery, other Psychiatric history: Reports: anxiety, bipolar, depression HEALTH CARE FACILITIES INSPECTOR history: Reports: no HEALTH CARE FACILITIES INSPECTOR history - Social History Smoking Status: Current every day smoker Alcohol use: Reports: none Drug use: Reports: none Physical Exam - General Limitations: no limitations General appearance: alert, in no apparent distress - Head Head exam: atraumatic, normocephalic, normal inspection - Eye Eye exam: Present: normal appearance, PERRL, EOMI - ENT ENT exam: normal exam, normal oropharynx, mucous membranes moist - Neck Neck exam: Present: normal inspection, full ROM, trachea midline - Chest Chest inspection: Present: normal inspection, symmetric chest wall rise - Respiratory Respiratory exam: Present: normal lung sounds bilaterally - Cardiovascular Cardiovascular exam: Present: normal rhythm, tachycardia, normal heart sounds. Absent: regular rate - Abdominal Exam Abdominal exam: Present: soft, Non-Tender. Absent: tenderness, distention, guarding, rebound, rigidity - Extremities Exam Extremities exam: Present: normal inspection, full ROM. Absent: tenderness, pedal edema - Neurological Exam Neurological exam: Present: alert, oriented X3 - Psychiatric Psychiatric exam: Present: normal affect, normal mood - Skin Skin exam: Present: warm, dry, intact, normal color Course Course Narrative: We will check labs and patient will likely be admitted. She was supposed to have a left heart catheter last time, but did not - Reevaluation(s) Reevaluation #1: Admitted to Dr. Ramirez. Time: 17:39 Vital Signs Temperature 98.6 F 01/15/18 16:01 Pulse Rate 106 01/15/18 16:01 Respiratory Rate 18 01/15/18 16:01 Blood Pressure 104/77 01/15/18 16:01 O2 Sat by Pulse Oximetry 99 01/15/18 16:01 Temperature 98.6 F 01/15/18 16:01 Pulse Rate 95 01/15/18 17:17 Respiratory Rate 18 01/15/18 17:17 Blood Pressure 102/85 01/15/18 17:17 O2 Sat by Pulse Oximetry 97 01/15/18 17:17 Oxygen Delivery Oxygen Delivery Room Air Chest Pain - Medical Records Medical records reviewed: Yes I reviewed the patient's medical records. - Lab Data Lab results reviewed: Yes I reviewed the patient's lab results. Result diagrams: 01/15/18 16:20 01/15/18 16:20 Lab Results 01/15/18 01/15/18 01/15/18 Range/Units 16:20 16:20 16:55 WBC 12.8 H (4.3-11.1) K/mcL RBC 5.70 H (3.82-4.97) M/mcL Hgb 16.8 H (11.5-15.4) g/dL Hct 46.6 H (35.3-44.9) % MCV 81.8 L (83.0-100.0) fL MCH 29.5 (28.0-33.3) pg MCHC 36.1 H (31.6-35.5) g/dL RDW 12.1 (11.5-14.5) % Plt Count 245 (140-400) K/mcL MPV 9.1 L (9.4-12.4) fL Immature Gran % 0.3 (0-4) % Seg Neutrophils % 59.1 % Lymphocytes % 31.5 % Monocytes % 6.3 % Eosinophils % 2.3 % Basophils % 0.5 % Neutrophils # 7.6 (1.6-8.9) K/mcL Lymphocytes # 4.0 (0.6-4.6) K/mcL Monocytes # 0.8 (0.0-1.3) K/mcL Eosinophils # 0.3 (0.0-0.6) K/mcL Basophils # 0.1 (0.0-0.2) K/mcL Sodium 134 L (136-145) mEq/L Potassium 3.6 (3.5-5.1) mEq/L Chloride 101 (98-107) mEq/L Carbon Dioxide 21 L (23-29) mEq/L BUN 11 (6-20) mg/dL Creatinine 1.18 (0.60-1.20) mg/dL Est GFR ( Amer) > 60 (> 60) Est GFR (Non-Af Amer) 50 L (> 60) BUN/Creatinine Ratio 9 (6-26) Glucose 442 H (70-105) mg/dL POC Glucose (70-99) mg/dL Calculated Osmolality 296 (280-300) Calcium 10.1 (8.6-10.3) mg/dL Troponin I < 0.03 (< 0.04) ng/mL Urine Color Yellow (Yellow) Urine Clarity Clear (Clear) Urine pH 5.5 (5.0-8.0) pH Units Ur Specific [place] > 1.030 H (1.010-1.025) Urine Protein 100 H (Neg-Trace) mg/dL Urine Glucose (UA) >=1000 H (Normal) mg/dL Urine Ketones Trace H (Negative) mg/dL Urine Blood Negative (Negative) Urine Nitrite Negative (Negative) Urine Bilirubin Negative (Negative) Urine Urobilinogen Normal (Normal) mg/dL Ur Leukocyte Esterase Negative (Negative) Urine Microscopic RBC 3-5 H (0-3) per hpf Urine Microscopic WBC 5-15 H (0-3) per hpf Ur Squamous Epith Cells Many H (None-Few) per lpf Urine Bacteria None Seen (None-Few) per hpf Hyaline Casts Few (None-Few) per lpf Ur Culture Indicated? NO (NO) 01/15/18 Range/Units 17:11 WBC (4.3-11.1) K/mcL RBC (3.82-4.97) M/mcL Hgb (11.5-15.4) g/dL Hct (35.3-44.9) % MCV (83.0-100.0) fL MCH (28.0-33.3) pg MCHC (31.6-35.5) g/dL RDW (11.5-14.5) % Plt Count (140-400) K/mcL MPV (9.4-12.4) fL Immature Gran % (0-4) % Seg Neutrophils % % Lymphocytes % % Monocytes % % Eosinophils % % Basophils % % Neutrophils # (1.6-8.9) K/mcL Lymphocytes # (0.6-4.6) K/mcL Monocytes # (0.0-1.3) K/mcL Eosinophils # (0.0-0.6) K/mcL Basophils # (0.0-0.2) K/mcL Sodium (136-145) mEq/L Potassium (3.5-5.1) mEq/L Chloride (98-107) mEq/L Carbon Dioxide (23-29) mEq/L BUN (6-20) mg/dL Creatinine (0.60-1.20) mg/dL Est GFR ( Amer) (> 60) Est GFR (Non-Af Amer) (> 60) BUN/Creatinine Ratio (6-26) Glucose (70-105) mg/dL POC Glucose 398 H (70-99) mg/dL Calculated Osmolality (280-300) Calcium (8.6-10.3) mg/dL Troponin I (< 0.04) ng/mL Urine Color (Yellow) Urine Clarity (Clear) Urine pH (5.0-8.0) pH Units Ur Specific [place] (1.010-1.025) Urine Protein (Neg-Trace) mg/dL Urine Glucose (UA) (Normal) mg/dL Urine Ketones (Negative) mg/dL Urine Blood (Negative) Urine Nitrite (Negative) Urine Bilirubin (Negative) Urine Urobilinogen (Normal) mg/dL Ur Leukocyte Esterase (Negative) Urine Microscopic RBC (0-3) per hpf Urine Microscopic WBC (0-3) per hpf Ur Squamous Epith Cells (None-Few) per lpf Urine Bacteria (None-Few) per hpf Hyaline Casts (None-Few) per lpf Ur Culture Indicated? (NO) - Radiology Data Radiology results reviewed: Yes I reviewed the patient's radiology results. - EKG Data EKG attestation: Yes I reviewed and interpreted this EKG. EKG results narrative: Sinus tach, rate 110, para 116, QRS 86, QTC 393, normal axis, no acute ischemic changes
[2018-01-15] MEDS ORDERED: 0.9 % Sodium Chloride 500 ML IVC ONE (16:09)
[2018-01-15 16:27] LABS: Basophils # 0.1 K/mcL (0.0-0.2); Basophils % 0.5 %; Eosinophils # 0.3 K/mcL (0.0-0.6); Eosinophils % 2.3 %; Hematocrit 46.6 % (35.3-44.9); Hemoglobin 16.8 g/dL (11.5-15.4); Immature Granulocytes % 0.3 % (0-4); Lymphocytes % 31.5 %; Mean Corpuscular HGB Conc 36.1 g/dL (31.6-35.5); Mean Corpuscular Hemoglobin 29.5 pg (28.0-33.3); Mean Corpuscular Volume 81.8 fL (83.0-100.0); Mean Platelet Volume 9.1 fL (9.4-12.4); Monocytes # 0.8 K/mcL (0.0-1.3); Monocytes % 6.3 %; Neutrophils # 7.6 K/mcL (1.6-8.9); Platelet Count 245 K/mcL (140-400); Red Cell Distribution Width 12.1 % (11.5-14.5); Segmented Neutrophils % 59.1 %
[2018-01-15 16:52] LABS: Troponin I < 0.03 ng/mL (< 0.04)
[2018-01-15 16:53] LABS: BUN/Creatinine Ratio 9 (6-26); Blood Urea Nitrogen 11 mg/dL (6-20); Calcium 10.1 mg/dL (8.6-10.3); Carbon Dioxide 21 mEq/L (23-29); Chloride 101 mEq/L (98-107); Glucose 442 mg/dL (70-105); Osmolality,Calculated 296 (280-300); Potassium 3.6 mEq/L (3.5-5.1); Sodium 134 mEq/L (136-145); eGFR For African Americans > 60 (> 60); eGFR For Non-African Americans 50 (> 60)
[2018-01-15 17:05] LABS: Bilirubin,Urine Negative (Negative); Blood,Urine Negative (Negative); Clarity,Urine Clear (Clear); Color,Urine Yellow (Yellow); Glucose,Urine (UA) >=1000 mg/dL (Normal); Ketones,Urine Trace mg/dL (Negative); Leukocyte Esterase,Urine Negative (Negative); Nitrite,Urine Negative (Negative); PH,Urine 5.5 pH Units (5.0-8.0); Protein,Urine 100 mg/dL (Neg-Trace); Specific Gravity,Urine > 1.030 (1.010-1.025); Urobilinogen,Urine Normal (Normal)
[2018-01-15 17:06] LABS: Bacteria,Urine None Seen per hpf (None-Few); Squamous Epithelial Cell,Urine Many per lpf (None-Few)
[2018-01-15 17:20] LABS: Hyaline Casts,Urine Few per lpf (None-Few)
--- NOTE | 2018-01-15 17:54 | Emergency Department Note ---
Disposition Clinical Impression: Chest pain Disposition: Admitted As Inpatient Condition: Good General Adult HPI - General Chief complaint: ED Chest Pain Stated complaint: chest pain Time Seen by Provider: 01/15/18 16:02 Source: patient Mode of arrival: ambulatory Limitations: no limitations Nursing Notes Reviewed: Yes Vital Signs Reviewed: Yes - History of Present Illness Pain Scale: 8 - Related Data Home Medications Medication Instructions Recorded Confirmed Gabapentin [Neurontin] 800 mg PO 0900,1200 05/15/15 01/15/18 Levothyroxine [Synthroid] 25 mcg PO QAM 05/15/15 01/15/18 Metformin [Glucophage] 1,000 mg PO BIDWM 05/15/15 01/15/18 Omeprazole [PriLOSEC] 40 mg PO HS 05/15/15 01/15/18 Simvastatin [Zocor] 20 mg PO HS 05/15/15 01/15/18 Albuterol Sulfate [Albuterol 2 puff IH Q6HR PRN 06/22/15 01/15/18 Inhaler] FLUoxetine HCl [Prozac] 60 mg PO QAM 01/18/17 01/15/18 Albuterol Neb [Proventil Neb] 2.5 mg IH TID PRN 03/07/17 01/15/18 Ranitidine HCl [Zantac] 300 mg PO HS 03/07/17 01/15/18 Tizanidine HCl [Zanaflex] 4 mg PO TID PRN 03/07/17 01/15/18 Aspirin/Acetaminophen/Caffeine 1 tab PO DAILY PRN 04/07/17 01/15/18 [Excedrin Migraine Caplet] Gabapentin [Neurontin] 1,600 mg PO HS 04/07/17 01/15/18 Aspirin [Ecotrin] 325 mg PO DAILY 01/08/18 01/15/18 Insulin ASPART [Novolog Flexpen] 2 - 20 unit SQ TID PRN 01/08/18 01/15/18 Insulin Glargine,Hum.rec.anlog 30 unit SQ HS 01/08/18 01/15/18 [Basaglar Kwikpen U-100] LORazepam [Ativan] 0.5 mg PO BID PRN 01/08/18 01/15/18 Magnesium Oxide [Mgo] 400 mg PO DAILY 01/08/18 01/15/18 Quetiapine Fumarate [Seroquel] 50 mg PO HS 01/08/18 01/15/18 Previous Rx's Medication Instructions Recorded Isosorbide MONOnitrate (24 HR) 30 mg PO DAILY #30 tab.er.24h 01/10/18 [Imdur] Metoprolol [Lopressor] 12.5 mg PO BID #15 tablet 01/10/18 Allergies Allergy/AdvReac Type Severity Reaction Status Date / Time chlordiazepoxide Allergy Hallucinati Verified 01/08/18 15:20 [From Librax (with ng methscopolamine)] Clidinium Allergy Hallucinati Verified 01/08/18 15:20 [From Librax (with ng clidinium)] scopolamine Allergy Hallucinati Verified 01/08/18 15:20 [From Librax (with ng methscopolamine)] meperidine [From Demerol] AdvReac Rash Verified 01/08/18 15:20 metoclopramide [From Reglan] AdvReac Palpitation Verified 01/08/18 15:20 s nabumetone [From Relafen] AdvReac Palpitation Verified 01/08/18 15:20 s Past Medical History - Past Medical History Medical history: Reports: asthma, diabetes, GERD, hyperlipidemia, hypertension, thyroid disease, valvular heart disease, other Surgical history: Reports: cholecystectomy, hysterectomy, orthopedic, other, sinus surgery, other Psychiatric history: Reports: anxiety, bipolar, depression [employer]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 - Social History Smoking Status: Current every day smoker Smokeless Tobacco Status: No Alcohol use: Reports: none Drug use: Reports: none Physical Exam - General Limitations: no limitations General appearance: alert, in no apparent distress Course Vital Signs Temperature 98.6 F 01/15/18 16:01 Pulse Rate 106 01/15/18 16:01 Respiratory Rate 18 01/15/18 16:01 Blood Pressure 104/77 01/15/18 16:01 O2 Sat by Pulse Oximetry 99 01/15/18 16:01 Temperature 98.6 F 01/15/18 16:01 Pulse Rate 95 01/15/18 17:17 Respiratory Rate 18 01/15/18 17:17 Blood Pressure 102/85 01/15/18 17:17 O2 Sat by Pulse Oximetry 97 01/15/18 17:17 Oxygen Delivery Oxygen Delivery Room Air Medical Decision Making - MDM Narrative Medical decision making narrative: This documentation is done with the assistance of Dragon dictation. Despite efforts made to ensure accuracy, there may be inaccuracies in electronic publisher or spelling and typographical errors. Patient seen on arrival with Dr. Lopez, patient's had intermittent chest discomfort throughout the day. History of to non-STEMI is in the past. Cardiac workup appears essentially unremarkable however with her history , she will need repeat troponin reassess by cardiology. She has not had a heart catheterization. She is in agreement with this plan. Chest X-Ray 01/15/18 16:03 IMPRESSION: Unremarkable chest. D/ / Yaya Aguilar MD / Yaya Aguilar MD Interpreting Provider: Yaya Aguilar MD - Lab Data Result diagrams: 01/15/18 16:20 01/15/18 16:20 Lab Results 01/15/18 01/15/18 01/15/18 Range/Units 16:20 16:20 16:55 WBC 12.8 H (4.3-11.1) K/mcL RBC 5.70 H (3.82-4.97) M/mcL Hgb 16.8 H (11.5-15.4) g/dL Hct 46.6 H (35.3-44.9) % MCV 81.8 L (83.0-100.0) fL MCH 29.5 (28.0-33.3) pg MCHC 36.1 H (31.6-35.5) g/dL RDW 12.1 (11.5-14.5) % Plt Count 245 (140-400) K/mcL MPV 9.1 L (9.4-12.4) fL Immature Gran % 0.3 (0-4) % Seg Neutrophils % 59.1 % Lymphocytes % 31.5 % Monocytes % 6.3 % Eosinophils % 2.3 % Basophils % 0.5 % Neutrophils # 7.6 (1.6-8.9) K/mcL Lymphocytes # 4.0 (0.6-4.6) K/mcL Monocytes # 0.8 (0.0-1.3) K/mcL Eosinophils # 0.3 (0.0-0.6) K/mcL Basophils # 0.1 (0.0-0.2) K/mcL Sodium 134 L (136-145) mEq/L Potassium 3.6 (3.5-5.1) mEq/L Chloride 101 (98-107) mEq/L Carbon Dioxide 21 L (23-29) mEq/L BUN 11 (6-20) mg/dL Creatinine 1.18 (0.60-1.20) mg/dL Est GFR ( Amer) > 60 (> 60) Est GFR (Non-Af Amer) 50 L (> 60) BUN/Creatinine Ratio 9 (6-26) Glucose 442 H (70-105) mg/dL POC Glucose (70-99) mg/dL Calculated Osmolality 296 (280-300) Calcium 10.1 (8.6-10.3) mg/dL Troponin I < 0.03 (< 0.04) ng/mL Urine Color Yellow (Yellow) Urine Clarity Clear (Clear) Urine pH 5.5 (5.0-8.0) pH Units Ur Specific [place] > 1.030 H (1.010-1.025) Urine Protein 100 H (Neg-Trace) mg/dL Urine Glucose (UA) >=1000 H (Normal) mg/dL Urine Ketones Trace H (Negative) mg/dL Urine Blood Negative (Negative) Urine Nitrite Negative (Negative) Urine Bilirubin Negative (Negative) Urine Urobilinogen Normal (Normal) mg/dL Ur Leukocyte Esterase Negative (Negative) Urine Microscopic RBC 3-5 H (0-3) per hpf Urine Microscopic WBC 5-15 H (0-3) per hpf Ur Squamous Epith Cells Many H (None-Few) per lpf Urine Bacteria None Seen (None-Few) per hpf Hyaline Casts Few (None-Few) per lpf Ur Culture Indicated? NO (NO) 01/15/18 Range/Units 17:11 WBC (4.3-11.1) K/mcL RBC (3.82-4.97) M/mcL Hgb (11.5-15.4) g/dL Hct (35.3-44.9) % MCV (83.0-100.0) fL MCH (28.0-33.3) pg MCHC (31.6-35.5) g/dL RDW (11.5-14.5) % Plt Count (140-400) K/mcL MPV (9.4-12.4) fL Immature Gran % (0-4) % Seg Neutrophils % % Lymphocytes % % Monocytes % % Eosinophils % % Basophils % % Neutrophils # (1.6-8.9) K/mcL Lymphocytes # (0.6-4.6) K/mcL Monocytes # (0.0-1.3) K/mcL Eosinophils # (0.0-0.6) K/mcL Basophils # (0.0-0.2) K/mcL Sodium (136-145) mEq/L Potassium (3.5-5.1) mEq/L Chloride (98-107) mEq/L Carbon Dioxide (23-29) mEq/L BUN (6-20) mg/dL Creatinine (0.60-1.20) mg/dL Est GFR ( Amer) (> 60) Est GFR (Non-Af Amer) (> 60) BUN/Creatinine Ratio (6-26) Glucose (70-105) mg/dL POC Glucose 398 H (70-99) mg/dL Calculated Osmolality (280-300) Calcium (8.6-10.3) mg/dL Troponin I (< 0.04) ng/mL Urine Color (Yellow) Urine Clarity (Clear) Urine pH (5.0-8.0) pH Units Ur Specific [place] (1.010-1.025) Urine Protein (Neg-Trace) mg/dL Urine Glucose (UA) (Normal) mg/dL Urine Ketones (Negative) mg/dL Urine Blood (Negative) Urine Nitrite (Negative) Urine Bilirubin (Negative) Urine Urobilinogen (Normal) mg/dL Ur Leukocyte Esterase (Negative) Urine Microscopic RBC (0-3) per hpf Urine Microscopic WBC (0-3) per hpf Ur Squamous Epith Cells (None-Few) per lpf Urine Bacteria (None-Few) per hpf Hyaline Casts (None-Few) per lpf Ur Culture Indicated? (NO) Attestation Statement - Attestation Attestation: I examined this patient and my medical decision-making was reviewed with the Resident Physician. I agree with the documented findings, disposition and treatment plan as described except to the extent set forth below. Patient seen by Dr. Lopez and myself I agree with his evaluation management plan, supervise care the patient's stay.
[2018-01-15] MEDS ORDERED: Acetaminophen/Aspirin/Caffeine TABLET PO PRN (18:10)
[2018-01-15] MEDS ORDERED: Albuterol 2.5 MG/3 ML NEBULIZER IH PRN (18:10)
[2018-01-15] MEDS ORDERED: tiZANidine 4 MG TABLET PO PRN (18:10)
[2018-01-15] MEDS ORDERED: Nitroglycerin 0.4 MG TAB.SUBL SL PRN (18:21)
--- NOTE | 2018-01-15 18:52 | Internal Med History&Physical ---
<Alaina Barrientos - Last Filed: 01/15/18 18:48> Date of Encounter: 01/15/18 Time of Encounter: 18:55 Internal Medicine - H&P: HPI History of present illness: Ms. Minor is a 42 year old female who began to have sudden onset of chest pain , diaphoretic, and dyspnea today. The patient indicated that she was walking into a restaurant and began to have squeezing chest pain that she rated a 8/10. She indicated that she had similar symptoms and was hospitalized recently. She indicated that she was initially told she would have a heart cath, during that admission but was treated medically with Imdur instead. She indicated that she believes the Imdur was effective however it causes her to be hypotensive and she is leery of taking any sl nitro while inpatient. She indicated that she see' s Dr. Delacruz and is scheduled to see him on January 24. Trop was negative at 0.03. WBC count was 12.8. She indicated that she has had 2 mini heart attacks in the past but never had stents placed.The patient is diabetic and blood sugars are 442. Cardiology was consulted due to patient's reoccurring chest pain and her desire to have a heart cath while she is here. Patient bp is marginally low with systolic in the 90's. The trending ekg shows tachycardia @ 103, regular rhythm, no apparent ST elevation. She did indicate that she takes antihypertensives at home which could also be causing this. Bp medications to be held at this time. Will trend out serial cardiac enzymes and get 12 lead in the am. She indicated that she still had some discomfort and requested pain medication. Morphine was ordered. Past Med Surg Social Fam HX - Past Medical History Medical history: asthma, diabetes, GERD, hyperlipidemia, hypertension, thyroid disease, valvular heart disease, other (Patient reported "2 mini heart attacks") Psychiatric history: anxiety, bipolar, depression - Past Surgical History Surgical History: cholecystectomy, hysterectomy, orthopedic, other, sinus surgery, other - Social History Smoking Status: Current every day smoker Packs per day: 1 pack Smokeless Tobacco Status: No Alcohol use: none Drug use: none - Family History Father Living Status: Still Living Hx Family Cardiac Disorders: Yes Hx Family Cancer: Yes (Lung cancer) Hx Family GI Disorders: Yes (Ulcers, hiatal hernia) Hx Family Endocrine Disorder: Yes (DM) Hx Family Neuromuscular Disorders: No Hx Family Neurologic Disorders: No Hx Family HEENT Disorders: No Hx Family Autoimmune Disorders: No Internal Medicine - H&P: Meds Gabapentin [Neurontin] 800 mg PO 0900,1200 05/15/15 [History] Levothyroxine [Synthroid] 25 mcg PO QAM 05/15/15 [History] Metformin [Glucophage] 1,000 mg PO BIDWM 05/15/15 [History] Omeprazole [PriLOSEC] 40 mg PO HS 05/15/15 [History] Simvastatin [Zocor] 20 mg PO HS 05/15/15 [History] Albuterol Sulfate [Albuterol Inhaler] 2 puff IH Q6HR PRN 06/22/15 [History] FLUoxetine HCl [Prozac] 60 mg PO QAM 01/18/17 [History] Albuterol Neb [Proventil Neb] 2.5 mg IH TID PRN 03/07/17 [History] Ranitidine HCl [Zantac] 300 mg PO HS 03/07/17 [History] Tizanidine HCl [Zanaflex] 4 mg PO TID PRN 03/07/17 [History] Aspirin/Acetaminophen/Caffeine [Excedrin Migraine Caplet] 1 tab PO DAILY PRN [History] Gabapentin [Neurontin] 1,600 mg PO HS 04/07/17 [History] Aspirin [Ecotrin] 325 mg PO DAILY 01/08/18 [History] Insulin ASPART [Novolog Flexpen] 2 - 20 unit SQ TID PRN 01/08/18 [History] Insulin Glargine,Hum.rec.anlog [Basaglar Kwikpen U-100] 30 unit SQ HS 01/08/18 [ History] LORazepam [Ativan] 0.5 mg PO BID PRN 01/08/18 [History] Magnesium Oxide [Mgo] 400 mg PO DAILY 01/08/18 [History] Quetiapine Fumarate [Seroquel] 50 mg PO HS 01/08/18 [History] Isosorbide MONOnitrate (24 HR) [Imdur] 30 mg PO DAILY #30 tab.er.24h 01/10/18 [ Rx] Metoprolol [Lopressor] 12.5 mg PO BID #15 tablet 01/10/18 [Rx] 3 Allergy/AdvReac Type Severity Reaction Status Date / Time chlordiazepoxide Allergy Hallucinati Verified 01/08/18 15:20 [From Librax (with ng methscopolamine)] Clidinium Allergy Hallucinati Verified 01/08/18 15:20 [From Librax (with ng clidinium)] scopolamine Allergy Hallucinati Verified 01/08/18 15:20 [From Librax (with ng methscopolamine)] meperidine [From Demerol] AdvReac Rash Verified 01/08/18 15:20 metoclopramide [From Reglan] AdvReac Palpitation Verified 01/08/18 15:20 s nabumetone [From Relafen] AdvReac Palpitation Verified 01/08/18 15:20 s All Systems PM: A 10-system review of systems was performed and is negative for pertinent findings except as documented above in the HPI. - Constitutional Constitutional: no chills, no fever(s), no night sweats - Constitutional Vitals: Temp Pulse Resp BP Pulse Ox 97.9 F 87 15 118/76 96 01/15/18 18:26 01/15/18 18:26 01/15/18 18:26 01/15/18 18:26 01/15/18 18:26 General appearance: Present: A&O X 3, no acute distress - Head Head exam: Present: atraumatic, normocephalic - Eye Eye exam: Present: PERRL, conjuntiva pink, sclera anicteric Pupils: Present: PERRL - Neck Neck exam general surgery: Present: supple, trachea midline. Absent: lymphadenopathy - Respiratory Respiratory exam: Present: CTAB. Absent: accessory muscle use, rales, rhonchi, wheezes - Cardiovascular Cardiovascular exam: Present: +S1, +S2, tachycardia. Absent: diastolic murmur, gallop, rubs - GI/Abdominal GI/Abdominal exam: Present: normal bowel sounds, soft, no peritoneal signs. Absent: distended, tenderness - Extremities Exam Extremities exam: Present: warm, radial pulses palpable and symmetrical. Absent : calf tenderness, cyanotic, pedal edema - Neurological Exam Neurological exam: Present: CN II-XII intact, oriented X3, no focal deficits. Absent: pronater drift, facial droop, speech deficit - Skin Skin exam: Present: dry, intact Internal Med - H&P Results - Labs CBC & Chem 7: 01/15/18 16:20 01/15/18 16:20 - Assessment and plan (1) Chest pain Current Visit: Yes Status: Acute Assessment and plan: The patient reported squeezing chest pain that began today while she was ambulating into a restaurant. The patient has a documented history of cp and see 's cardiology outpatient. She is requesting a heart cath while she is here and inpatient cardiology was consulted. Trop is negative. Will continue serial trops and get repeat 12 lead in the am. Qualifiers: Chest pain type: precordial pain Qualified Code(s): R07.2 - Precordial pain - Time Spent With Patient Total time spent is greater than 50% in coordination of care (as documented) at patient's floor/unit and/or counseling patient: 25 - 35 minutes <Derrick Ramirez - Last Filed: 01/15/18 20:06> Date of Encounter: 01/15/18 Internal Medicine - H&P: HPI History of present illness: Ms. Minor is a 42 year old female All Systems PM: A 10-system review of systems was performed and is negative for pertinent findings except as documented above in the HPI. - Constitutional Vitals: Temp Pulse Resp BP Pulse Ox 97.9 F 87 15 118/76 96 01/15/18 18:26 01/15/18 18:26 01/15/18 18:26 01/15/18 18:26 01/15/18 18:26 Internal Med - H&P Results - Labs CBC & Chem 7: 01/15/18 16:20 01/15/18 16:20 - Attending Attestation I have personally performed a face to face evaluation on this patient. I have reviewed and agree with the care plan. History and Exam by me shows: 82-year-old female who was discharged on Saturday after seen by cardiology with plans for medical management consisting of Imdur, Lopressor, left heart catheter that was aborted prior to discharge who presents with recurrent chest pain. Chest pain started at 3 PM when she was leaving [facility] while she was ambulating. She describes a squeezing quality, chest pain localized to the sternal region , somewhat associated with exertion, rate 8 out of 10. No improvement with aspirin. Chest pain nonreproducible on palpation. EKG personally reviewed with rate 110, sinus tachycardia, nonspecific ST-T changes in the ER Repeat EKG on the floor showed rate of 91, normal sinus rate and XR/XR chest 1V portable IMPRESSION: Unremarkable chest. ROS 14 point review of systems reviewed as best as possible given presentation. Pertinent positive or negative as per HPI or otherwise reviewed as negative General - AAO x 3 Psych - Appropriate affect/speech. No agitation Eyes - CHRISTY. Eye lids intact. No scleral icterus Heart - Sinus. RRR. S1 and S2 present. No added HS/murmurs appreciated. No elevated JVD appreciated. Lung - Adequate air entry b/l, No crackles/wheezes appreciated GI - Soft, non-tender. No hepatosplenomegaly/ascites. BS+ - No CVA/suprapubic tenderness or palpable bladder distension Skin - Intact. No rash/petechiae/ecchymosis. Warm extremities Assessment and plan Recurrent chest pain, recently discharged last week for empirical treatment of angina. Recently completed unremarkable stress test and echo - evaluated by cardiology on a 10 of January prior to discharge. No overt evidence of ACS at current baseline EKG and biochemical markers. Was supposedly scheduled for left heart catheter last admission but was canceled. Discussed with the who recommended admission for evaluation of left heart catheter testing - patient is concerned. Given prior encounter with cardiology and question whether she would need further testing we would reconsult cardiology for further assessment and plan She does not risk factors of diabetes on insulin complicated by peripheral neuropathy, smoking a pack a day. - Time Spent With Patient Total time spent is greater than 50% in coordination of care (as documented) at patient's floor/unit and/or counseling patient:
[2018-01-15] MEDS ORDERED: *HR* Morphine 2 MG/ML SYRINGE IVP ONE (19:00)
[2018-01-15] MEDS ORDERED: *HR* HYDROcodone/Acet 5/325 mg TABLET PO PRN (19:56)
[2018-01-15] MEDS ORDERED: NON-FORMULARY MEDICATION 1 EACH EACH (Insulin Glargine,Hum.Rec.Anlog [Basaglar Kwikpen U-1 SQ SCH (21:00)
[2018-01-15] MEDS: Famotidine 20 MG TABLET PO SCH (21:11)
[2018-01-15] MEDS: Insulin DETEMIR 100 UNIT/ML X5UNITS SQ SCH (21:12)
[2018-01-15] MEDS: Gabapentin 400 MG CAPSULE PO SCH (21:12)
[2018-01-16 01:56] LABS: Basophils # 0.1 K/mcL (0.0-0.2); Basophils % 0.9 %; Eosinophils # 0.4 K/mcL (0.0-0.6); Eosinophils % 3.8 %; Hematocrit 42.5 % (35.3-44.9); Immature Granulocytes % 0.1 % (0-4); Lymphocytes # 3.9 K/mcL (0.6-4.6); Lymphocytes % 39.5 %; Mean Corpuscular HGB Conc 35.1 g/dL (31.6-35.5); Mean Corpuscular Hemoglobin 29.4 pg (28.0-33.3); Mean Corpuscular Volume 83.8 fL (83.0-100.0); Mean Platelet Volume 9.4 fL (9.4-12.4); Monocytes # 0.7 K/mcL (0.0-1.3); Monocytes % 7.4 %; Neutrophils # 4.7 K/mcL (1.6-8.9); Platelet Count 176 K/mcL (140-400); Red Blood Count 5.07 M/mcL (3.82-4.97); Red Cell Distribution Width 12.4 % (11.5-14.5); Segmented Neutrophils % 48.3 %
[2018-01-16 01:57] LABS: Hemoglobin 14.9 g/dL (11.5-15.4)
[2018-01-16 02:02] LABS: INR 1.1
[2018-01-16 02:20] LABS: Alanine Aminotransferase 22 Units/L (7-52); Albumin 3.8 g/dL (3.5-5.7); Albumin/Globulin Ratio 1.8 (1.1-2.2); Alkaline Phosphatase 49 Units/L (34-104); Aspartate Amino Transferase 24 Units/L (13-39); BUN/Creatinine Ratio 19 (6-26); Bilirubin,Total 0.6 mg/dL (0.3-1.0); Blood Urea Nitrogen 14 mg/dL (6-20); Calcium 8.9 mg/dL (8.6-10.3); Carbon Dioxide 23 mEq/L (23-29); Chloride 104 mEq/L (98-107); Globulin 2.1 g/dL (2.4-3.5); Glucose 315 mg/dL (70-105); Magnesium 1.5 mg/dL (1.6-2.6); Osmolality,Calculated 295 (280-300); Potassium 3.7 mEq/L (3.5-5.1); Sodium 136 mEq/L (136-145); Total Protein 5.9 g/dL (6.4-8.9); eGFR For African Americans > 60 (> 60); eGFR For Non-African Americans > 60 (> 60)
[2018-01-16] MEDS: Magnesium Oxide 400 MG TABLET PO SCH (08:11)
[2018-01-16] MEDS: Aspirin Enteric Coated 325 MG Tablet PO SCH (08:11)
[2018-01-16] MEDS: Levothyroxine 25 MCG TABLET PO SCH (08:11)
[2018-01-16] MEDS: Gabapentin 400 MG CAPSULE PO SCH ×3 (08:11→20:13)
[2018-01-16] MEDS: FLUoxetine 20 MG CAPSULE PO SCH (08:11)
--- NOTE | 2018-01-16 11:15 | Cardiology Consult Note ---
<Stephen Nava R - Last Filed: 01/16/18 11:12> Date of Encounter: 01/16/18 Time of Encounter: 11:13 Assessment and Plan (1) Chest pain Current Visit: Yes Status: Acute Recurrent chest pain admissions. Troponins negative x 4. Was started on Imdur last week, pt reports helped initially, but chest pain recurred. Risk factors for CAD include HTN, HLD, DMII, tobacco abuse, obesity. Negative nuclear stress test at [facility] 10/2017. Given recurrent chest pain, recommend [facility] to further evaluate. R/B/A discussed. Pt agrees to proceed. LHC today. TTE 11/2017 EF 65%, suspect bicuspid AV with moderate AR. Qualifiers: Chest pain type: precordial pain Qualified Code(s): R07.2 - Precordial pain (2) Bicuspid aortic valve Current Visit: Yes Status: Acute TTE 11/24/17. LVEF 65%. Leaflet morphology of the aortic valve is not optimally visualized. Suspect a bicuspid aortic valve. Moderate aortic regurgitation. Continue to monitor. Discussion w patient/family: The assessment and plan as outlined above was discussed with the patient and/or family members who expressed understanding and agreement. All questions were answered. Thank you for involving us in the care of your patient. Please call with any questions. I will discuss all the above with Dr. Earl and make changes as necessary. History of Present Illness Consult date: 01/16/18 Requesting physician: Derrick Ramirez Consult reason: chest pain Chief complaint: chest pain History of present illness: Ms. Minor is a 42 year old female with PMH of HTN, HLD, bicuspid AV with moderate AR, DMII, tobacco abuse, hypothyroidism, GERD that presented to ED with chest pain that started yesterday and continued to worsen, described as squeezing associated with diaphoresis and dyspnea. Nothing seemed to make the pain better worse, resolved on its own. Now chest pain free. Of note, multiple recent hospitalizations for chest pain and has been evaluated by cardiology, was started on Imdur last week, which she states helped initially. Troponins negative x 4. Negative nuclear stress test at [facility] 10/2017. Cardiology consulted for further recs. Pt reports LHC approximately 5 years ago without intervention. Past Med Surg Social Fam HX - Past Medical History Medical history: asthma, diabetes, GERD, hyperlipidemia, hypertension, thyroid disease, valvular heart disease, other (Patient reported "2 mini heart attacks") Psychiatric history: anxiety, bipolar, depression - Past Surgical History Surgical History: cholecystectomy, hysterectomy, orthopedic, other, sinus surgery, other - Social History Smoking Status: Current every day smoker Packs per day: 1 pack Smokeless Tobacco Status: No Alcohol use: none Drug use: none - Family History Father Living Status: Still Living Hx Family Cardiac Disorders: Yes Hx Family Cancer: Yes (Lung cancer) Hx Family GI Disorders: Yes (Ulcers, hiatal hernia) Hx Family Endocrine Disorder: Yes (DM) Hx Family Neuromuscular Disorders: No Hx Family Neurologic Disorders: No Hx Family HEENT Disorders: No Hx Family Autoimmune Disorders: No Mother Living Status: Still Living Hx Family Cardiac Disorders: Yes (Leaky valve.) Medications and Allergies Gabapentin [Neurontin] 800 mg PO 0900,1200 05/15/15 [History] Levothyroxine [Synthroid] 25 mcg PO QAM 05/15/15 [History] Metformin [Glucophage] 1,000 mg PO BIDWM 05/15/15 [History] Omeprazole [PriLOSEC] 40 mg PO HS 05/15/15 [History] Simvastatin [Zocor] 20 mg PO HS 05/15/15 [History] Albuterol Sulfate [Albuterol Inhaler] 2 puff IH Q6HR PRN 06/22/15 [History] FLUoxetine HCl [Prozac] 60 mg PO QAM 01/18/17 [History] Albuterol Neb [Proventil Neb] 2.5 mg IH TID PRN 03/07/17 [History] Ranitidine HCl [Zantac] 300 mg PO HS 03/07/17 [History] Tizanidine HCl [Zanaflex] 4 mg PO TID PRN 03/07/17 [History] Aspirin/Acetaminophen/Caffeine [Excedrin Migraine Caplet] 1 tab PO DAILY PRN [History] Gabapentin [Neurontin] 1,600 mg PO HS 04/07/17 [History] Aspirin [Ecotrin] 325 mg PO DAILY 01/08/18 [History] Insulin ASPART [Novolog Flexpen] 2 - 20 unit SQ TID PRN 01/08/18 [History] Insulin Glargine,Hum.rec.anlog [Basaglar Kwikpen U-100] 30 unit SQ HS 01/08/18 [ History] LORazepam [Ativan] 0.5 mg PO BID PRN 01/08/18 [History] Magnesium Oxide [Mgo] 400 mg PO DAILY 01/08/18 [History] Quetiapine Fumarate [Seroquel] 50 mg PO HS 01/08/18 [History] Isosorbide MONOnitrate (24 HR) [Imdur] 30 mg PO DAILY #30 tab.er.24h 01/10/18 [ Rx] Metoprolol [Lopressor] 12.5 mg PO BID #15 tablet 01/10/18 [Rx] 3 Allergy/AdvReac Type Severity Reaction Status Date / Time chlordiazepoxide Allergy Hallucinati Verified 01/08/18 15:20 [From Librax (with ng methscopolamine)] Clidinium Allergy Hallucinati Verified 01/08/18 15:20 [From Librax (with ng clidinium)] scopolamine Allergy Hallucinati Verified 01/08/18 15:20 [From Librax (with ng methscopolamine)] meperidine [From Demerol] AdvReac Rash Verified 01/08/18 15:20 metoclopramide [From Reglan] AdvReac Palpitation Verified 01/08/18 15:20 s nabumetone [From Relafen] AdvReac Palpitation Verified 01/08/18 15:20 s All Systems Review: The remainder of the systems were reviewed and are negative - Cardiovascular Cardiovascular: as per HPI, chest pain at rest, chest pain with exertion, diaphoresis, dyspnea on exertion - Respiratory Respiratory: dyspnea Physical Examination Vital Signs Temp Pulse Resp BP Pulse Ox 01/16/18 06:49 97.7 F 69 16 115/75 97 01/16/18 03:19 97.6 F 67 15 99/65 97 01/15/18 23:15 98.0 F 79 16 91/55 97 01/15/18 18:26 97.9 F 87 15 118/76 96 01/15/18 17:17 95 18 102/85 97 01/15/18 16:11 115 20 110/74 98 01/15/18 16:01 98.6 F 106 18 104/77 99 Intake and Output 01/15/18 01/16/18 01/16/18 23:59 07:59 15:59 Intake Total 500 / 500 Balance 500 / 500 Intake: IV Fluids 500 / 500 0.9 % Sodium Chloride 500 ML @ 500 / 500 1875 mls/hr IVC .Q16M ONE Rx#: [id number] Other: Weight 81.3 kg Blood Glucose* 319 209 General: Conversant, No Apparent Distress HEENT: Atraumatic, Normocephaly, Mucus Membranes Moist Neck: No JVD, Normal carotid pulses Cardiac: Reg Rate and Rhythm, Normal S1 and S2, No Murmur Lungs: Normal Breath Sounds, No Wheeze, Rales, Rhonchi Neuro: Alert and responsive, No focal deficits noted Abdomen: Soft, Non-Tender Skin: No rashes noted on visualized skin Musculoskeletal: No Chest Wall Tenderness Extremities: No Clubbing, No Cyanosis, No Edema, Normal Pulses Results 01/16/18 01:02 01/16/18 01:02 Lab Results 01/15/18 01/16/18 01/16/18 19:05 01:02 01:02 WBC 9.8 Hgb 14.9 D Hct 42.5 Plt Count 176 INR Sodium Potassium Chloride Carbon Dioxide BUN Creatinine Glucose Calcium Magnesium Total Bilirubin AST ALT Alkaline Phosphatase Troponin I < 0.03 < 0.03 01/16/18 01/16/18 01/16/18 01:02 01:02 06:28 WBC Hgb Hct Plt Count INR 1.1 Sodium 136 Potassium 3.7 Chloride 104 Carbon Dioxide 23 BUN 14 Creatinine 0.74 Glucose 315 H Calcium 8.9 Magnesium 1.5 L Total Bilirubin 0.6 AST 24 ALT 22 Alkaline Phosphatase 49 Troponin I < 0.03 Short CBC 01/16/18 01/15/18 Range/Units 01:02 16:20 WBC 9.8 12.8 H (4.3-11.1) K/mcL Hgb 14.9 D 16.8 H (11.5-15.4) g/dL Hct 42.5 46.6 H (35.3-44.9) % Plt Count 176 245 (140-400) K/mcL Neutrophils # 4.7 7.6 (1.6-8.9) K/mcL BMP 01/16/18 01/15/18 Range/Units 01:02 16:20 Sodium 136 134 L (136-145) mEq/L Potassium 3.7 3.6 (3.5-5.1) mEq/L Chloride 104 101 (98-107) mEq/L Carbon Dioxide 23 21 L (23-29) mEq/L BUN 14 11 (6-20) mg/dL Creatinine 0.74 1.18 (0.60-1.20) mg/dL Glucose 315 H 442 H (70-105) mg/dL Calcium 8.9 10.1 (8.6-10.3) mg/dL Cardiac Enzymes 01/16/18 01/16/18 01/15/18 Range/Units 06:28 01:02 19:05 Troponin I < 0.03 < 0.03 < 0.03 (< 0.04) ng/mL 01/15/18 Range/Units 16:20 Troponin I < 0.03 (< 0.04) ng/mL Liver Function 01/16/18 Range/Units 01:02 Total Bilirubin 0.6 (0.3-1.0) mg/dL AST 24 (13-39) Units/L ALT 22 (7-52) Units/L Alkaline Phosphatase 49 (34-104) Units/L Albumin 3.8 (3.5-5.7) g/dL Urine 01/15/18 Range/Units 16:55 Urine Color Yellow (Yellow) Urine Clarity Clear (Clear) Urine pH 5.5 (5.0-8.0) pH Units Ur Specific [place] > 1.030 H (1.010-1.025) Urine Protein 100 H (Neg-Trace) mg/dL Urine Glucose (UA) >=1000 H (Normal) mg/dL Impressions Chest X-Ray 01/15/18 16:03 IMPRESSION: Unremarkable chest. D/ / Yaya Aguilar MD / Yaya Aguilar MD Interpreting Provider: Yaya Aguilar MD Active Medications Acetaminophen/Aspirin/Caffeine (Excedrin Ex) 1 each PO DAILY PRN PRN Reason: Migraine Headache Stop: 07/17/18 18:11 Hydrocodone Bitart/Acetaminophen ([place] 5-325 Mg) 2 tab PO Q6HR PRN PRN Reason: Pain Stop: 01/17/18 19:57 Last Admin: 01/15/18 21:11 Dose: 2 tab Albuterol Sulfate (Proventil Neb) 2.5 mg IH TID PRN; Protocol PRN Reason: Dyspnea Stop: 07/17/18 18:11 Albuterol Sulfate (Albuterol Inhaler) 2 puff IH Q6HR PRN PRN Reason: Wheezing Stop: 07/17/18 18:11 Aspirin (Aspirin Ec) 325 mg PO DAILY [facility] Stop: 07/18/18 09:01 Last Admin: 01/16/18 08:11 Dose: 325 mg Famotidine (Pepcid) 20 mg PO HS [facility] Stop: 07/17/18 21:01 Last Admin: 01/15/18 21:11 Dose: 20 mg Fluoxetine HCl (Prozac) 60 mg PO QAM CURLY PRN Reason: Protocol Stop: 07/18/18 09:01 Last Admin: 01/16/18 08:11 Dose: 60 mg Gabapentin (Neurontin) 800 mg PO 0900,1200 [facility] Stop: 07/18/18 09:01 Last Admin: 01/16/18 08:11 Dose: 800 mg Gabapentin (Neurontin) 1,600 mg PO HS [facility] Stop: 07/17/18 21:01 Last Admin: 01/15/18 21:12 Dose: 1,600 mg Insulin Detemir (Levemir) 30 unit SQ HS [facility] Stop: 07/17/18 21:01 Last Admin: 01/15/18 21:12 Dose: 30 unit Levothyroxine Sodium (Synthroid) 25 mcg PO QAM [facility] Stop: 07/18/18 09:01 Last Admin: 01/16/18 08:11 Dose: 25 mcg Lorazepam (Ativan) 0.5 mg PO BID PRN PRN Reason: Anxiety Stop: 07/17/18 18:11 Magnesium Oxide (Mag-Ox) 400 mg PO DAILY CURLY PRN Reason: Protocol Stop: 07/18/18 09:01 Last Admin: 01/16/18 08:11 Dose: 400 mg Nitroglycerin (Nitroglycerin) 0.4 mg SL Q5MIN PRN PRN Reason: Chest Pain Stop: 07/17/18 18:22 Omeprazole (Prilosec) 40 mg PO HS [facility] PRN Reason: Protocol Stop: 07/17/18 21:01 Last Admin: 01/15/18 21:11 Dose: 40 mg Quetiapine Fumarate (Seroquel) 50 mg PO HS CURLY Stop: 07/17/18 21:01 Last Admin: 01/15/18 21:11 Dose: 50 mg Simvastatin (Zocor) 20 mg PO HS CURLY PRN Reason: Protocol Stop: 07/17/18 21:01 Last Admin: 01/15/18 21:11 Dose: 20 mg Tizanidine HCl (Zanaflex) 4 mg PO TID PRN PRN Reason: Muscle Spasm - Imaging and Cardiology Echo: report reviewed - EKG Interpretation EKG results cardiology: personally reviewed (SR) Consult Discharge Plan - Plan Referrals: Kana Newberry MD [Primary Care Provider] - <Chapito Earl - Last Filed: 01/16/18 17:03> Date of Encounter: 01/16/18 - Attending Attestation I have personally performed a face to face evaluation on this patient. I have reviewed and agree with the care plan. History and Exam by me shows: Asked to see pt for chest pain, pt seen and examined, chart reviewed, CC: Chest pain PT complains of severe 8/10 mid sternal chest pain, comes and goes spontaneously , lasts from five to fifteen minutes, is not improved with SL ntg. PT also reports decreased exercise tolerance over last several months, has been in the ER with chest pain at least four times, rules out for myocardial necrosis and is sent home. She had a negative stress test 10/2017. She is currently pain free. PMHx: Reviewed PE: reviewed, agree with findings as documented IMP: 1. Chest pain, atypical, has ruled out for AMI, symptoms appear out of proportion to physical findings, however wtih recurrent chest pain, despite aggressive medical tx, will proceed with LHC/possible. Risks and benefits discussed, agrees to proceed. Assessment and Plan Discussion w patient/family: The assessment and plan as outlined above was discussed with the patient and/or family members who expressed understanding and agreement. All questions were answered. Thank you for involving us in the care of your patient. Please call with any questions. History of Present Illness History of present illness: Ms. Minor is a 42 year old female All Systems Review: The remainder of the systems were reviewed and are negative Physical Examination Vital Signs, Last 4 Hours Temp Pulse Resp BP Pulse Ox 01/16/18 14:47 97.8 F 84 16 119/94 94 Results 01/16/18 01:02 01/16/18 01:02 Lab Results 01/15/18 01/16/18 01/16/18 19:05 01:02 01:02 WBC 9.8 Hgb 14.9 D Hct 42.5 Plt Count 176 INR Sodium Potassium Chloride Carbon Dioxide BUN Creatinine Glucose Calcium Magnesium Total Bilirubin AST ALT Alkaline Phosphatase Troponin I < 0.03 < 0.03 01/16/18 01/16/18 01/16/18 01:02 01:02 06:28 WBC Hgb Hct Plt Count INR 1.1 Sodium 136 Potassium 3.7 Chloride 104 Carbon Dioxide 23 BUN 14 Creatinine 0.74 Glucose 315 H Calcium 8.9 Magnesium 1.5 L Total Bilirubin 0.6 AST 24 ALT 22 Alkaline Phosphatase 49 Troponin I < 0.03
[2018-01-16] MEDS: *HR* LORazepam 0.5 MG TABLET PO PRN ×2 (11:44→20:43)
[2018-01-16] MEDS ORDERED: Heparin 1,000 UNITS/500 mL 500 ML ONE (15:09)
[2018-01-16] MEDS ORDERED: Nitroglycerin 1,000 MCG/10 ML VIAL IV ONE (15:09)
[2018-01-16] MEDS ORDERED: 0.9 % Sodium Chloride 1,000 ML ONE ×2 (15:09→15:44)
[2018-01-16] MEDS ORDERED: *HR* Heparin 10,000 UNIT/10 ML VIAL ONE (15:09)
[2018-01-16] MEDS ORDERED: ISOVUE-370 200 ML INFUS..BTL IV ONE (15:09)
[2018-01-16] MEDS ORDERED: *HR* Midazolam HCl 2 MG/2 ML VIAL ONE (15:44)
--- NOTE | 2018-01-16 16:13 | Internal Med Progress Note ---
Date of Encounter: 01/16/18 Time of Encounter: 16:12 - Assessment and plan (1) Chest pain Current Visit: Yes Status: Acute Assessment and plan: recurrent chest pain admissions. Serial troponins negarive, EKG without acute ST changes. Negative nuclear stress test at [facility] 10/2017. Risk factors for CAD include HTN, HLD, DMII, tobacco abuse, obesity. [facility] planned . Cardiology following. Of note patient reported acute onset shortness of breath and was reportedly found to be tachycardic and hypertensive when EMS arrived; consider chest CTA however Wells score with low probability for pulmonary embolism. Continue ASA, BB, nitrate Qualifiers: Chest pain type: precordial pain Qualified Code(s): R07.2 - Precordial pain (2) Hypertension Current Visit: No Status: Chronic Assessment and plan: per hx. BP controlled. Continue home BP medication. Monitor BP and titrate PRN Qualifiers: Hypertension type: essential hypertension Qualified Code(s): I10 - Essential (primary) hypertension (3) Bicuspid aortic valve Current Visit: Yes Status: Acute Assessment and plan: 11/24/17 TTE with EF 65%. Leaflet morphology of the aortic valve is not optimally visualized. Suspect a bicuspid aortic valve. Moderate aortic regurgitation. (4) Bipolar II disorder Current Visit: No Status: Chronic Assessment and plan: per hx. Cont home medications (5) Type 2 diabetes mellitus Current Visit: No Status: Chronic Assessment and plan: per hx. holding home oral hypo-Lasix. SSI. 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 use: with termite technician use Diabetes mellitus complication status: with other specified complication Qualified Code (s): E11.69 - Type 2 diabetes mellitus with other specified complication; Z79.4 - alf (current) use of insulin; Z79.4 - termite inspector (current) use of insulin ; Z79.4 - alf (current) use of insulin; Z79.4 - termite inspector (current) use of insulin (6) DVT prophylaxis Current Visit: No Status: Acute Assessment and plan: heparin - Time Spent With Patient Total time spent is greater than 50% in coordination of care (as documented) at patient's floor/unit and/or counseling patient: - Constitutional Vitals: Temp Pulse Resp BP Pulse Ox 97.8 F 84 16 119/94 94 01/16/18 14:47 01/16/18 14:47 01/16/18 14:47 01/16/18 14:47 01/16/18 14:47 General appearance: Present: A&O X 3, no acute distress Internal Medicine: Result - Labs CBC & Chem 7: 01/16/18 01:02 01/16/18 01:02 Labs: Short CBC 01/16/18 Range/Units 01:02 WBC 9.8 (4.3-11.1) K/mcL Hgb 14.9 D (11.5-15.4) g/dL Hct 42.5 (35.3-44.9) % Plt Count 176 (140-400) K/mcL Neutrophils # 4.7 (1.6-8.9) K/mcL BMP 01/16/18 01:02 Sodium 136 Potassium 3.7 Chloride 104 Carbon Dioxide 23 BUN 14 Creatinine 0.74 Glucose 315 H Calcium 8.9 Cardiac Enzymes 01/15/18 01/16/18 01/16/18 Range/Units 19:05 01:02 06:28 Troponin I < 0.03 < 0.03 < 0.03 (< 0.04) ng/mL Liver Function 01/16/18 Range/Units 01:02 Total Bilirubin 0.6 (0.3-1.0) mg/dL AST 24 (13-39) Units/L ALT 22 (7-52) Units/L Alkaline Phosphatase 49 (34-104) Units/L Albumin 3.8 (3.5-5.7) g/dL - ABG Interpretation ABG results: PT/INR, D-dimer PT 12.0 Seconds (9.4-12.1) 01/16/18 01:02 Consult Discharge Plan - Plan Referrals: Kana Newberry MD [Primary Care Provider] -
--- NOTE | 2018-01-16 16:21 | Electrocardiograph Report ---
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
--- NOTE | 2018-01-16 16:23 | Electrocardiograph Report ---
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
--- NOTE | 2018-01-16 16:33 | Event Note ---
Date of Encounter: 01/16/18 Time of Encounter: 16:30 - Cardiology Event Note Per discussion with Dr. Earl and Dr. De La Rosa, [facility] showed nonobstructive mild CAD in LAD. Cardiology will s/o, re-consult PRN, f/u with PCP. Recs for risk factor modification.
--- NOTE | 2018-01-16 16:57 | Invasive Diagnostic Lab Proc ---
Name: Miranda Minor Date of Study: 01/16/2018 Date: 1975 Ht: 61.8in Medical Record#: [id number] Age: 42 Wt: 179.24lb Gender: Female BSA: 1.82 Order #: [id number] BMI: 32.98 Physicians Procedure Physician: Chapito Earl DO Referring MD: Kana Newberry M.D. Referring MD: Staff Name Position Time In Aide Tran RN Gear Shaper 03:45 PM Kathryn Guzman RT (R) Scrub 03:45 PM Bib Willams RN Monitor 03:45 PM Martín Paredes RN Monitor 03:45 PM Indications Indication Unstable Angina Procedures Performed Procedure L HRT ARTERY/VENTRICLE ANGIO Pre-Procedure Checklist Informed consent is complete signed and on chart. H&P is on chart. ID band is on and ID verified with patient. Patient NPO for procedure The procedure was described for the patient and questions were answered. Blood Pressure: 126/84 ECG is on chart. Rhythm: NSR Plan of Care Patient will tolerate the procedure without complications. Adequate level of comfort will be maintained. Hemodynamics will remain stable Patient will recover from procedure without complications. Respiratory function will be maintained. Cardiac rhythm will remain stable. Patient temperature will be maintained. Patient and/or family have verbalized understanding of the procedure. Patient Education Chief Complaint/Reason for Test: Cardiac Cath Developmental Category: Adult (18-64 years) Developmentally Appropriate for Age: Yes Learning Barriers: None Education Needs: Procedure Education Method: Verbal Information Taught: Cardiac Cath Educational Evaluation: Able to repeat information Intravenous Access Time IV Size Location DC'd Fluid/Drip Rate Units RN Started with 20g 1 1/4" Rt Wrist 0.9NaCl 25 ml/hr Allergies nabumetone metoclopramide librax chlordiazepoxide Clidinium *HR* MEPERIDINE scopolamine meperidine Vital Signs Time BP (mmHg) HR (bpm) O2 Sat. RR (bpm) LOC 03:17 PM 126 / 84 80 96 % 14 5 = Fully awake and oriented or at pre-proc level 03:47 PM / % 5 = Fully awake and oriented or at pre-proc level 03:47 PM / % 4 = Oriented but drowsy 04:02 PM / % 4 = Oriented but drowsy 03:48 PM 133 / 81 70 97 % 03:53 PM 128 / 70 75 98 % 03:58 PM 133 / 84 74 98 % 04:03 PM 126 / 81 75 97 % 04:08 PM 137 / 73 76 96 % 04:13 PM 117 / 72 73 100 % 04:18 PM 131 / 73 74 99 % 04:23 PM 131 / 80 76 99 % 04:28 PM 123 / 72 71 99 % 04:33 PM 121 / 70 72 100 % 04:38 PM 127 / 79 68 100 % 04:43 PM 132 / 71 75 100 % Procedural Medications Time Medication Dose Units Method Given By 03:47 PM Oxygen 2 L/min nasal cannula Aide Tran RN 03:49 PM Versed 2 mg Intravenous Aide Tran RN 04:10 PM Lidocaine 2% 10 ml Subcutaneous Chapito Earl DO ASA Classification: CLASS III- Severe systemic disease (i.e. prior AMI, diabetes with vascular complications, morbid obesity) Vikas Score Preprocedure Postprocedure Activity 2- Moves 4 extremities sustained head lift Activity 2- Moves 4 extremities sustained head lift Circulation 2- SBP +/= 20 points of pre-anesthetic level Circulation 2- SBP +/= 20 points of pre-anesthetic level Consciousness 2- Awake and alert oriented x 3 Consciousness 2- Awake and alert oriented x 3 O2 Saturation 2- Able to maintain O2 satruation of 92% on room air O2 Saturation 2- Able to maintain O2 satruation of 92% on room air Respiratory 2- Able to deep breathe and cough well Respiratory 2- Able to deep breathe and cough well Total Score 10 Total Score 10 Contrast Agent: Isovue Diagnostic Contrast: 50 ml Total Contrast: 50 ml Fluoro Dose: 521 mGy Procedure Log Time Note Enter By 03:20 PM CathStat 03:23 PM Pt arrived to [employer] 2 at 15:23 cedwards 03:45 PM Aide Tran RN Position: Gear Shaper Time in: 15:45 cedwards 03:45 PM Kathryn Guzman RT (R) Position: Scrub Time in: 15:45 cedwards 03:45 PM Bib Willams RN Position: Monitor Time in: 15:45 cedwards 03:45 PM Martín Paredes RN Position: Monitor Time in: 15:45 cedwards 03:46 PM Patient charges- Angio tray pack, Navilyst 3mm J, Pulse Oximetry and ACIST tubing and transducer cedwards 03:46 PM Physican paged/called 15:46. cedwards 03:46 PM Physican responded and notified patient is ready 15:46 ced 03:46 PM Physician arrived 15:46 ced 03:46 PM Meet and uzma completed 03:46 PM Sign in performed according to hospital policy. ced 03:46 PM Hair removed from procedure site in procedure lab using clippers. Bilateral groin prepped with Chloraprep by Kathryn Guzman (R), then patient was draped. Skin intact. ced:47 PM Time: 15:47 Oxygen on at 2 L/min per nasal cannula by Aide Tran RN :47 PM Time: 15:47 Patient comfortable and pain free: Yes :47 PM Time: 15:47LOC: 5 = Fully awake and oriented or at pre-proc level ced 03:47 PM Vitals capture started with the following parameters, Patient=Adult, Interval=5 min, Initial Kvwgecpj=440 mmHg, Deflation Rate=5 mmHg, Cuff placed on Right Arm 03:48 PM HR=70 bpm, KNTE=808/81 mmhg, SpO2=97.0 %, Comment=SR 03:48 PM Recorded ECG: HR=72 Condition=Condition 1 03:49 PM Time: 15:49 Versed 2 mg Intravenous Given by Aide Tran RN wards 03:53 PM HR=75 bpm, CJDD=712/70 mmhg, SpO2=98.0 %, Comment=SR 03:58 PM HR=74 bpm, TAEH=797/84 mmhg, SpO2=98.0 %, Comment=SR 03:58 PM Pressure channel 2 zeroed. 04:00 PM Recorded ECG: HR=75 Condition=Condition 1 04:02 PM Time: 15:47 Patient comfortable and pain free: Yes 04:02 PM Time: 15:47LOC: 4 = Oriented but drowsy cedwards 04:03 PM HR=75 bpm, TWZR=855/81 mmhg, SpO2=97.0 %, Comment=SR 04:08 PM Clinical Presentation: Unstable angina cedwards 04:08 PM HR=76 bpm, VCPJ=671/73 mmhg, SpO2=96.0 %, Comment=SR 04:09 PM ASA Class CLASS III- Severe systemic disease (i.e. prior AMI, diabetes with vascular complications, morbid obesity) cedwards 04:10 PM Time out performed according to hospital policy cedwards 04:10 PM Time: 16:10 10 ml Lidocaine 2% to right groin Subcutaneous Given by Chapito Earl DO cedwards 04:10 PM Procedure start 16:10 cedwards 04:10 PM Case Start 04:11 PM Micro-Introducer Kit utilized for sheath placement cedwards 04:12 PM Access obtained by percutaneous puncture. 6Fr 10cm [place] sheath placed in right Femoral artery. [id number] cedwards 04:13 PM HR=73 bpm, FVVN=429/72 mmhg, UbJ9=035.0 %, Comment=SR 04:13 PM 6Fr FR 4 catheter inserted over the wire [facility] cedwards 04:13 PM 0.035 145cm Navilyst 3mmJ wire [id number] cedwards 04:16 PM Recorded Pressure: Ao, HR=75, Condition=Condition 1 (Aorta) Ao 116/68/88 04:17 PM Time: 16:02LOC: 4 = Oriented but drowsy ced 04:17 PM Time: 16:02 Patient comfortable and pain free: Yes cedwards 04:18 PM Catheter removed cedwards 04:18 PM HR=74 bpm, SJOQ=736/73 mmhg, SpO2=99.0 %, Comment=SR 04:18 PM 6Fr FL 4 catheter inserted over the wire [facility] cedwards 04:19 PM LCA angiography performed in multiple views. cedwards 04:21 PM Catheter removed cedwards 04:21 PM 6Fr JR 4 Cordis guide catheter was used to cannulate the PCI vessel successfully. reused? No cedwards 04:22 PM Recorded Pressure: LV, HR=76, Condition=Condition 1 (Left Ventricle) LV 122/-2/3 04:22 PM Catheter selectively placed in left ventricle cedwards 04:22 PM Recorded Pressure: LV, Ao, HR=77, Condition=Condition 1 (Left Ventricle) LV 115/-4/0, (Aorta) Ao 113/61/83 04:23 PM Bolus angiogram of left Ventricle complete, hand injection cedwards 04:23 PM HR=76 bpm, BLOS=608/80 mmhg, SpO2=99.0 %, Comment=SR 04:23 PM RCA angiography performed in multiple views. cedwards 04:24 PM Coronary Dominance: Left cedwards 04:24 PM Bolus angiogram of right Femoral complete, hand injection cedwards 04:26 PM Catheter removed cedwards 04:26 PM Mid/Distal Left Anterior Descending Coronary Artery and diagonal branches with 20% stenosis. If graft is supplying this area, 0 % stenosis cedwards 04:27 PM Procedure completed at 16:27 cedwards 04:27 PM Did you address GIULIA flow and Dominance? Yes cedwards 04:28 PM Sign out completed: Radiation Dose 521.47 mGy Fluoro Time: 6.5 Isovue 370 - 200ml contrast 50 ml given by Chapito Earl DO. Complications: NoneCardiac Rehab Consult needed: NoConfirmed administered medications: Yes cedwards 04:28 PM HR=71 bpm, YIME=636/72 mmhg, SpO2=99.0 %, Comment=SR 04:28 PM Arterial sheath pulled using manual compression and V+ Pad for 15 minutes by Aide Tran RN cedwards 04:28 PM Estimated Blood Loss: minimal cedwards 04:28 PM Post Blood Pressure 123/72 cedwards 04:29 PM 16:28 Post Pulses Bilateral DP & PT 2+ cedwards 04:29 PM Post ECG NSR cedwards 04:29 PM Information taught Cardiac Cath cedwards 04:29 PM Education needs Procedure, Plan of Care, and Responsibilities of Patient in Care cedwards 04:29 PM Learning barriers :None cedwards 04:29 PM Education Methods Verbal cedwards 04:29 PM Education evaluation Able to repeat information cedwards 04:30 PM Lesion found in Mid LAD. Pre Stenosis: 20 Pre GIULIA Flow: cedwards 04:33 PM HR=72 bpm, EJAP=630/70 mmhg, KsQ6=025.0 %, Comment=SR 04:38 PM HR=68 bpm, FLZW=570/79 mmhg, OqS3=487.0 %, Comment=SR 04:43 PM HR=75 bpm, QSHM=399/71 mmhg, QmK9=147 % 04:46 PM Family placed in consult room. cedwards 04:46 PM Report given to Riddhi MCQUEEN Pt taken to Room #3B54. 16:46 cedwards 04:46 PM Opsite applied cedwards 04:47 PM Site status No bleeding/hematoma - Rt Groin as reported by Aide Tran RN at 16:46 cedwards 04:48 PM Patient out of room: 16:48 cedwards Complications Complication None Hemodynamics Pressures Site Systolic/A Wave Diastolic/V Wave Mean AO 116 68 88 LV 122 -2 3 LV 115 -4 0 AO 113 61 83 Post Procedure Information Blood Pressure: 123/72 mmHg Rhythm: NSR Post procedural instructions were given Closure Device Time Device Success/Fail 01/16/2018 4:31:00 PM Manual Compression Successful Site Checks Time Location Status Staff Sheath In? Note 04:46 PM Rt Groin No bleeding/hematoma Aide Tran RN Pulses Time Site Pre-Procedure Post-Procedure Note 01/16/2018 3:17:00 PM Bilateral DP & PT 2+ 01/16/2018 3:17:00 PM Bilateral radial 2+ 4:28:00 PM Bilateral DP & PT 2+ Updated by Bib Willams RN on 01/16/2018 4:49:59 PM electronically signed on 01/16/2018 4:50:44 PM with status of Final
--- NOTE | 2018-01-16 17:07 | Pre-Sedation Evaluation ---
Pre-sedation evaluation - Pre-sedation checklist Date of procedure: 01/16/18 Procedure: heart cath Recent Vitals: Last Vital Signs Temp 97.8 F 01/16/18 14:47 Pulse 84 01/16/18 14:47 Resp 16 01/16/18 14:47 BP 119/94 01/16/18 14:47 Pulse Ox 94 01/16/18 14:47 H&P (including ROS) documented in medical record: Yes Previous reaction to sedatives/anesthetics: No Dietary Status: NPO after Midnight Airway Assessment: Patient can open mouth completely, TMJ function normal Dentition: No loose teeth or bridges Possible difficult airway: No ASA Classification *see protocol: CLASS III-Severe systemic disease Plan of Care: Risks/benefits of procedure/sedation discussed w/ patient/family
[2018-01-16] MEDS: Famotidine 20 MG TABLET PO SCH (20:13)
[2018-01-16] MEDS: Insulin DETEMIR 100 UNIT/ML X5UNITS SQ SCH (20:14)
[2018-01-16] MEDS: 0.9 % Sodium Chloride 1,000 ML IVC SCH (20:14)
[2018-01-16] MEDS: *HR* Heparin 5,000 UNIT/ML VIAL SQ SCH (20:14)
[2018-01-16] MEDS ORDERED: Insulin LISPRO 300 UNITS/3 ML VIAL SQ ONE (20:39)
[2018-01-16] MEDS ORDERED: Dextrose Gel 15 GM/37.5 ML TUBE PO PRN ×2 (23:54)
[2018-01-16] MEDS ORDERED: *HR* Dextrose 50 % in Water (Syg) 50 ML SYRINGE IVP PRN (23:54)
[2018-01-16] MEDS ORDERED: D5% in Water 1,000 ML IVC PRN (23:54)
[2018-01-17] MEDS: 0.9 % Sodium Chloride 1,000 ML IVC SCH (04:17)
[2018-01-17 05:23] LABS: Basophils # 0.1 K/mcL (0.0-0.2); Basophils % 0.9 %; Eosinophils # 0.3 K/mcL (0.0-0.6); Eosinophils % 3.6 %; Hematocrit 44.3 % (35.3-44.9); Hemoglobin 15.3 g/dL (11.5-15.4); Immature Granulocytes % 0.3 % (0-4); Lymphocytes % 38.1 %; Mean Corpuscular HGB Conc 34.5 g/dL (31.6-35.5); Mean Corpuscular Hemoglobin 29.2 pg (28.0-33.3); Mean Corpuscular Volume 84.5 fL (83.0-100.0); Mean Platelet Volume 9.6 fL (9.4-12.4); Monocytes # 0.5 K/mcL (0.0-1.3); Monocytes % 6.5 %; Neutrophils # 3.9 K/mcL (1.6-8.9); Platelet Count 170 K/mcL (140-400); Red Blood Count 5.24 M/mcL (3.82-4.97); Red Cell Distribution Width 12.1 % (11.5-14.5); Segmented Neutrophils % 50.6 %
[2018-01-17 05:35] LABS: Alanine Aminotransferase 24 Units/L (7-52); Albumin 3.7 g/dL (3.5-5.7); Albumin/Globulin Ratio 1.7 (1.1-2.2); Alkaline Phosphatase 51 Units/L (34-104); Aspartate Amino Transferase 27 Units/L (13-39); BUN/Creatinine Ratio 17 (6-26); Bilirubin,Total 0.4 mg/dL (0.3-1.0); Blood Urea Nitrogen 12 mg/dL (6-20); Calcium 9.3 mg/dL (8.6-10.3); Carbon Dioxide 24 mEq/L (23-29); Chloride 105 mEq/L (98-107); Globulin 2.2 g/dL (2.4-3.5); Glucose 369 mg/dL (70-105); Osmolality,Calculated 297 (280-300); Potassium 4.4 mEq/L (3.5-5.1); Sodium 136 mEq/L (136-145); Total Protein 5.9 g/dL (6.4-8.9); eGFR For African Americans > 60 (> 60); eGFR For Non-African Americans > 60 (> 60)
[2018-01-17] MEDS: *HR* Heparin 5,000 UNIT/ML VIAL SQ SCH (05:54)
[2018-01-17] MEDS ORDERED: Isovue-370 500 ML INFUS..BTL IV ONE (08:10)
[2018-01-17] MEDS: Insulin LISPRO 300 UNITS/3 ML VIAL SQ SCH ×2 (08:25→12:08)
[2018-01-17] MEDS: Levothyroxine 25 MCG TABLET PO SCH (08:26)
[2018-01-17] MEDS: Aspirin Enteric Coated 325 MG Tablet PO SCH (08:26)
[2018-01-17] MEDS: Magnesium Oxide 400 MG TABLET PO SCH (08:27)
[2018-01-17] MEDS: FLUoxetine 20 MG CAPSULE PO SCH (08:27)
[2018-01-17] MEDS: Gabapentin 400 MG CAPSULE PO SCH ×2 (08:27→12:10)
[2018-01-17] MEDS ORDERED: Isosorbide MONOnitrate (24 HR) 30 MG TAB.ER.24H PO SCH (09:00)
[2018-01-17 11:35] VITALS: BP 119/77
--- NOTE | 2018-01-17 13:04 | Discharge Summary ---
Orders not resulted at time of discharge: Pending orders 01/16/18 07:00 ECG 12 lead ECG [ECG] Routine 01/16/18 11:22 CL Cardiac Catheterization [CL] Routine 01/18/18 04:00 BMP [Basic Metabolic Panel] AM 0400 Complete Blood Count [HEME] AM 0400 Complete Blood Count w/o Diff [HEME] AM 0400 Comprehensive Metabolic Panel AM 0400 01/19/18 04:00 BMP [Basic Metabolic Panel] AM 0400 Complete Blood Count w/o Diff [HEME] AM 0400 01/20/18 04:00 BMP [Basic Metabolic Panel] AM 0400 Complete Blood Count w/o Diff [HEME] AM 0400 01/21/18 04:00 BMP [Basic Metabolic Panel] AM 0400 Complete Blood Count w/o Diff [HEME] AM 0400 Date of Encounter: 01/17/18 Time of Encounter: 13:06 - Discharge Diagnosis (1) Chest pain Priority: Primary Status: Acute Assessment and Plan: recurrent chest pain admissions. Serial troponins negarive, EKG without acute ST changes. Negative nuclear stress test at [facility] 10/2017. 01/16/2018 [facility] showed nonobstructive mild CAD in LAD; no intervention required. Chest CTA unremarkable. Suspect recurrent chest pain possibly secondary to anxiety/ underlying psychiatric issues. Chest pain resolved. Continue ASA, BB, nitrate Qualifiers: Chest pain type: precordial pain Qualified Code(s): R07.2 - Precordial pain (2) Hypertension Priority: Secondary Status: Chronic Assessment and Plan: per hx. BP controlled. Continue home BP medication. Qualifiers: Hypertension type: essential hypertension Qualified Code(s): I10 - Essential (primary) hypertension (3) Bicuspid aortic valve Priority: Secondary Status: Chronic Assessment and Plan: 11/24/17 TTE with EF 65%. Leaflet morphology of the aortic valve is not optimally visualized. Suspect a bicuspid aortic valve. Moderate aortic regurgitation. (4) Bipolar II disorder Priority: Secondary Status: Chronic Assessment and Plan: per hx. Suspect this maybe contributing to recurrent chest pain. Cont home medications (5) Type 2 diabetes mellitus Priority: Secondary Status: Chronic Assessment and Plan: per hx. 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 Says she feels better and wants to go home. No further chest pain, no shortness of breath. She thinks the nitrate is what caused her chest pain.) - Time Spent with Patient Total time spent providing and/or coordinating discharge services: - Discharge Medications Home Medications: Gabapentin [Neurontin] 800 mg PO 0900,1200 05/15/15 [History] Levothyroxine [Synthroid] 25 mcg PO QAM 05/15/15 [History] Metformin [Glucophage] 1,000 mg PO BIDWM 05/15/15 [History] Omeprazole [PriLOSEC] 40 mg PO HS 05/15/15 [History] Simvastatin [Zocor] 20 mg PO HS 05/15/15 [History] Albuterol Sulfate [Albuterol Inhaler] 2 puff IH Q6HR PRN 06/22/15 [History] FLUoxetine HCl [Prozac] 60 mg PO QAM 01/18/17 [History] Albuterol Neb [Proventil Neb] 2.5 mg IH TID PRN 03/07/17 [History] Ranitidine HCl [Zantac] 300 mg PO HS 03/07/17 [History] Tizanidine HCl [Zanaflex] 4 mg PO TID PRN 03/07/17 [History] Aspirin/Acetaminophen/Caffeine [Excedrin Migraine Caplet] 1 tab PO DAILY PRN [History] Gabapentin [Neurontin] 1,600 mg PO HS 04/07/17 [History] Aspirin [Ecotrin] 325 mg PO DAILY 01/08/18 [History] Insulin ASPART [Novolog Flexpen] 2 - 20 unit SQ TID PRN 01/08/18 [History] Insulin Glargine,Hum.rec.anlog [Basaglar Kwikpen U-100] 30 unit SQ HS 01/08/18 [ History] LORazepam [Ativan] 0.5 mg PO BID PRN 01/08/18 [History] Magnesium Oxide [Mgo] 400 mg PO DAILY 01/08/18 [History] Quetiapine Fumarate [Seroquel] 50 mg PO HS 01/08/18 [History] Isosorbide MONOnitrate (24 HR) [Imdur] 30 mg PO DAILY #30 tab.er.24h 01/10/18 [ Rx] Metoprolol [Lopressor] 12.5 mg PO BID #15 tablet 01/10/18 [Rx] Allergies/Adverse Reactions: 3 Allergy/AdvReac Type Severity Reaction Status Date / Time chlordiazepoxide Allergy Hallucinati Verified 01/08/18 15:20 [From Librax (with ng methscopolamine)] Clidinium Allergy Hallucinati Verified 01/08/18 15:20 [From Librax (with ng clidinium)] scopolamine Allergy Hallucinati Verified 01/08/18 15:20 [From Librax (with ng methscopolamine)] meperidine [From Demerol] AdvReac Rash Verified 01/08/18 15:20 metoclopramide [From Reglan] AdvReac Palpitation Verified 01/08/18 15:20 s nabumetone [From Relafen] AdvReac Palpitation Verified 01/08/18 15:20 s Date of admission: 01/15/18 17:46 Primary care physician: Kana Newberry MD Consults: 01/15/18 18:49 Consult to Cardiology [CONS] Routine Comment: Consulting Provider: Cardiology Wagoner Reason for Consult: Patient here with Chest pain, trop is negative. She was treated medically with Imdur last time and now is requesting a heart cath. Patient reports hx of 2 RI's Time Notified: 18:51 Call Completed: Yes Discharging clinician: Tania Olson Anticipated date of discharge: 01/17/18 - Constitutional Vitals: Temp Pulse Resp BP Pulse Ox 98.4 F 70 18 119/77 98 01/17/18 11:34 01/17/18 11:34 01/17/18 11:34 01/17/18 11:34 01/17/18 11:34 General appearance: Present: A&O X 3, no acute distress - Head Head exam: Present: atraumatic, normocephalic - Eye Eye exam: Present: PERRL, conjuntiva pink, sclera anicteric Pupils: Present: PERRL - Neck Neck exam general surgery: Present: supple, trachea midline. Absent: lymphadenopathy - Respiratory Respiratory exam: Present: CTAB. Absent: accessory muscle use, rales, rhonchi, wheezes - Cardiovascular Cardiovascular exam: Present: RRR, +S1, +S2. Absent: diastolic murmur, gallop, rubs, systolic murmur - GI/Abdominal GI/Abdominal exam: Present: normal bowel sounds, soft, no peritoneal signs. Absent: distended, tenderness - Extremities Exam Extremities exam: Present: warm, radial pulses palpable and symmetrical. Absent : calf tenderness, cyanotic, pedal edema - Neurological Exam Neurological exam: Present: CN II-XII intact, oriented X3, no focal deficits. Absent: pronater drift, facial droop, speech deficit - Skin Skin exam: Present: dry, intact - Patient Status Disposition: Home, Self-Care Condition: Good Functional capacity at discharge: independent ambulation Overall status at discharge: patient is back to baseline - Discharge Instructions Instructions: Chest Pain (DC), Anxiety (DC) Follow Up With: Kana Newberry MD [Primary Care Provider] - - Diet and Activity Activity: increase activity as tolerated Diet: diabetic diet, low fat, low cholesterol
[2018-01-17] MEDS ORDERED: Insulin LISPRO 300 UNITS/3 ML VIAL SQ SCH (21:00)
== END 2018-01-17 14:10 | disposition home or self-care (01) ==
LOC: EMEROO 15:59 → 3BNU 15:59
PROVIDERS: ADMIT Internal Medicine Hematology & Oncology; ATTEND Internal Medicine Hematology & Oncology

== ENCOUNTER 2019-05-12 12:57 | Observation (INO) ==
[2019-05-12] MEDS ORDERED: *HR* Dextrose 50 % in Water (Syg) 50 ML SYRINGE IVP PRN ×4 (13:11→19:49)
--- NOTE | 2019-05-12 14:03 | Emergency Department Note ---
Disposition Clinical Impression: Hyperglycemia due to type 2 diabetes mellitus Qualifiers: Diabetes mellitus skilled nursing insulin use: with long chain beamer use Qualified Code(s): E11.65 - Type 2 diabetes mellitus with hyperglycemia Clinical Impression: (Ruled Out): Hyperglycemia Disposition: Admitted As Inpatient Condition: Good Referrals: Kana Newberry MD [Primary Care Provider] - Forms: ED Satisfaction Letter Time of Disposition: 15:58 General Adult HPI - General Chief complaint: ED Seizure Stated complaint: seizure Time Seen by Provider: 05/12/19 13:21 Source: patient Limitations: no limitations Nursing Notes Reviewed: Yes Vital Signs Reviewed: Yes - History of Present Illness HPI Narrative: Ms. Minor is a 43 yo woman presenting to the ED by private vehicle on 05/12/19 after she passed out while sitting in a chair earlier today. Per sister, who witnessed the event, patient "fell asleep" and would not rouse until sister smacked her cheek. Patient noted her hands were shaky. She has not been sleeping well and is stressed about mother's heart cath scheduled for tomorrow as well as upcoming move. She has been to the ED repeatedly for elevated blood glucose, most recently 3 weeks ago at OSH that resulted in ICU admit. She recalls feeling extremely fatigued prior to passing out. She said during the past week she has had approximately 6 similar events, with one episode of urinary incontinence and no tongue lacerations. She also reports hematuria that has now resolved after she passed 2 stones two days ago. Patient endorses enuresis x3 during past week, CVA tenderness, intermittent diarrhea without nausea or vomiting. She denies AMS apart from ongoing fatigue, CP, SOB, numbness, weakness, vision changes. She stated her usual insulin regime has not been working, nor is her pump; she is expecting a replacement pump tomorrow. Patient also has a painful periapical swelling on left side that she has noticed for 2 weeks and attributes to a decayed tooth. She is taking penicillin but has not been evaluated by a dentist. She denies difficulty swallowing worse than bas chris dysphagia, fever, discharge, or voice changes. PMH significant for T2DM, bicuspid AV, GERD s/p EGD, hypothyroidism, MDD, BPD II, hysterectomy. Allergies include Humalog (lispro) but not Humalin/Novalin. Patient states her blood glucose "gets much worse" with Humalog. Social history includes smoking, past SI/attempt. - Related Data Home Medications Medication Instructions Recorded Confirmed Gabapentin [Neurontin] 800 mg PO 0900,1200 05/15/15 04/01/19 Albuterol Neb [Proventil Neb] 2.5 mg IH TID PRN 03/07/17 04/01/19 Ranitidine HCl [Zantac] 300 mg PO QPM 03/07/17 04/01/19 Tizanidine HCl [Zanaflex] 4 mg PO Q8H PRN 03/07/17 04/01/19 Gabapentin [Neurontin] 1,600 mg PO HS 04/07/17 04/01/19 LORazepam [Ativan] 0.5 mg PO BID PRN 01/08/18 04/01/19 Atorvastatin [Lipitor] 40 mg PO QPM 03/19/18 04/01/19 Insulin Regular, Human [Novolin R] 60 unit .ROUTE BID 10/10/18 04/01/19 Levothyroxine Sodium 25 mcg PO DAILY 10/10/18 04/01/19 Promethazine [Phenergan] 25 mg PO Q8H PRN 10/10/18 04/01/19 Quetiapine Fumarate [Seroquel] 400 mg PO HS 10/10/18 04/01/19 Venlafaxine HCl [Venlafaxine HCl 150 mg PO DAILY 10/10/18 04/01/19 ER] Pantoprazole Sodium [Protonix] 40 mg PO DAILY 03/17/19 04/01/19 Topiramate [Topamax] 25 mg PO DAILY 03/17/19 04/01/19 Insulin NPH Hum/Reg Insulin Hm 60 units 04/01/19 [Novolin 70-30 Flexpen] Allergies Allergy/AdvReac Type Severity Reaction Status Date / Time meperidine [From Demerol] Allergy Rash Verified 03/26/19 04:44 chlordiazepoxide AdvReac Hallucinati Verified 03/26/19 04:44 [From Librax (with ng methscopolamine)] Clidinium AdvReac Hallucinati Verified 03/26/19 04:44 [From Librax (with ng clidinium)] insulin lispro AdvReac See Verified 03/26/19 04:44 [From Humalog U-100 Insulin] Comments ipratropium [From Combivent] AdvReac Vomiting Verified 03/26/19 04:44 metoclopramide [From Reglan] AdvReac Palpitation Verified 03/26/19 04:44 s nabumetone [From Relafen] AdvReac Palpitation Verified 03/26/19 04:44 s scopolamine AdvReac Hallucinati Verified 03/26/19 04:44 [From Librax (with ng methscopolamine)] All systems ED: reviewed and negative except as stated. ENT ED: Reports: dysphagia Gastrointestinal: Reports: abdominal pain, diarrhea Genitourinary: Reports: dysuria, hematuria Musculoskeletal: Reports: other (Periapical swelling, poor dentition) Neurological: Reports: other (Pseudoseizure) Psychiatric: Reports: depression Endocrine: Reports: fatigue Past Medical History - Past Medical History Attestation: Yes The following information was validated with the patient. Source: patient, old records reviewed Medical history: Reports: asthma, COPD, diabetes, GERD, hyperlipidemia, RA, seizures, thyroid disease Surgical history: Reports: cholecystectomy, hysterectomy, sinus surgery Psychiatric history: Reports: bipolar, depression, prior suicide attempt, previous psychiatric hospitalization [employer] history: Reports: non-contributory - Social History Smoking Status: Current every day smoker Smokeless Tobacco Status: No Alcohol use: Reports: rarely Drug use: Reports: none Physical Exam PE Gen: AOx3, no HEENT: Periapical swelling on left tender to palpation, mild fluctuance, no erythema, no obstruction of oropharynx. Mucous membranes moist. Poor dentition including broken tooth above area of swelling. No discharge from swelling arnie arent in mouth. Pupils equal and reactive. Occiput tender to palpation with small area of edema 2/2 hitting head 3 days ago. Cardio: Regular rate and rhythm on ausculation, no murmurs. Good perfusion to all extremities. No cyanosis, no peripheral pitting edema. Resp: Breath sounds equal on both sides, no wheezes, no crackles, no cough, no increased WOB, no Kussmaul breathing, no odor of acetone on breath GI: Abdomen soft, nondistended, non tender to palpation. No ecchymoses or rash. : CVA tenderness on right side, no suprapubic distention or tenderness to palpation MSK: Normal ROM, scratches along RUE that appear to be healing normally, no joint swelling, erythema or tenderness Neuro: CNI-XII intact, normal sensation, normal strength Psych: Appropriate affect, anxious - General General appearance: alert, in no apparent distress Course Course Narrative: VS stable and WNL. POC Glucose >600, plan was to treat for DKA once K+, serum ketones, bicarbonate results return. However, serum pH normal, bicarb normal, no ketones therefore will treat for hyperglycemia instead. K+ also WNL. Glucose measured by lab at 845. Started on IV humalin 7 units/hr, will talk to hospitalist about admission. CXR WNL. EKG WNL. Patient is mentating well and not having trouble breathing. Given lack of neurological symptoms and no anticoagulation, CT head not indicated. Patient is not having alarm symptoms such as drooling, muffled voice, inability to tolerate PO intake so CT facial bones likewise not indicated. Will refer to dentist for evaluation of periapical abscess and switch antibiotics to clindamycin to better cover oral anaerobes. UA ordered in light of hematuria, CVA tenderness. Negative for UTI. Hospitalist will admit once glucose is lower following IV insulin. Head CT ordered at request of hospitalist given patient's pseudoseizure to rule out intracranial abnormality. Head CT negative. Repeat glucose 503. Titration adjusted per [harmacist recommendation, patient admitted. - Reevaluation(s) Reevaluation #1: Patient comfortable, alert. In agreement with plan to admit for hyperglycemia and starting IV insulin. Vital Signs Temperature 98.2 F 05/12/19 13:02 Pulse Rate 86 05/12/19 13:02 Respiratory Rate 15 05/12/19 13:02 Blood Pressure 154/87 05/12/19 13:02 O2 Sat by Pulse Oximetry 98 05/12/19 13:02 Temperature 98.2 F 05/12/19 13:02 Pulse Rate 89 05/12/19 18:09 Respiratory Rate 17 05/12/19 18:09 Blood Pressure 161/88 05/12/19 18:09 O2 Sat by Pulse Oximetry 100 05/12/19 18:09 Oxygen Delivery Oxygen Delivery Room Air Medical Decision Making - Medical Records Medical records reviewed: Yes I reviewed the patient's medical records. - Lab Data Lab results reviewed: Yes I reviewed the patient's lab results. Result diagrams: 05/12/19 14:12 05/12/19 14:12 Lab Results 05/12/19 05/12/19 05/12/19 Range/Units 13:03 13:04 14:12 WBC 6.9 (4.3-11.1) K/mcL RBC 5.26 H (3.82-4.97) M/mcL Hgb 15.4 (11.5-15.4) g/dL Hct 44.1 (35.3-44.9) % MCV 83.8 (83.0-100.0) fL MCH 29.3 (28.0-33.3) pg MCHC 34.9 (31.6-35.5) g/dL RDW 12.7 (11.5-14.5) % Plt Count 168 (140-400) K/mcL MPV 9.6 (9.4-12.4) fL Immature Gran % 0.1 (0-4) % Seg Neutrophils % 61.9 % Lymphocytes % 27.0 % Monocytes % 5.6 % Eosinophils % 4.2 % Basophils % 1.2 % Neutrophils # 4.3 (1.6-8.9) K/mcL Lymphocytes # 1.9 (0.6-4.6) K/mcL Monocytes # 0.4 (0.0-1.3) K/mcL Eosinophils # 0.3 (0.0-0.6) K/mcL Basophils # 0.1 (0.0-0.2) K/mcL VBG pH (7.32-7.42) pH Units VBG pCO2 (41-51) mmHg VBG pO2 (25-50) mmHg VBG HCO3 (21-27) mEq/L Sodium (136-145) mEq/L Potassium (3.5-5.1) mEq/L Chloride (98-107) mEq/L Carbon Dioxide (23-29) mEq/L BUN (6-20) mg/dL Creatinine (0.60-1.20) mg/dL Est GFR ( Amer) (> 60) Est GFR (Non-Af Amer) (> 60) BUN/Creatinine Ratio (6-26) Glucose (70-105) mg/dL POC Glucose > 600 H* > 600 H* (70-99) mg/dL Calculated Osmolality (280-300) Calcium (8.6-10.3) mg/dL Total Bilirubin (0.3-1.0) mg/dL AST (13-39) Units/L ALT (7-52) Units/L Alkaline Phosphatase (34-104) Units/L Troponin I (< 0.04) ng/mL Serum Total Protein (6.4-8.9) g/dL Albumin (3.5-5.7) g/dL Globulin (2.4-3.5) g/dL Albumin/Globulin Ratio (1.1-2.2) Beta-Hydroxybutyric Acd (0.02-0.27) mmol/L Urine Color (Yellow) Urine Clarity (Clear) Urine pH (5.0-8.0) pH Units Ur Specific Rankin (1.010-1.025) Urine Protein (Neg-Trace) mg/dL Urine Glucose (UA) (Normal) mg/dL Urine Ketones (Negative) mg/dL Urine Blood (Negative) Urine Nitrite (Negative) Urine Bilirubin (Negative) Urine Urobilinogen (Normal) mg/dL Ur Leukocyte Esterase (Negative) Ur Culture Indicated? (NO) 05/12/19 05/12/19 05/12/19 Range/Units 14:12 14:12 14:29 WBC (4.3-11.1) K/mcL RBC (3.82-4.97) M/mcL Hgb (11.5-15.4) g/dL Hct (35.3-44.9) % MCV (83.0-100.0) fL MCH (28.0-33.3) pg MCHC (31.6-35.5) g/dL RDW (11.5-14.5) % Plt Count (140-400) K/mcL MPV (9.4-12.4) fL Immature Gran % (0-4) % Seg Neutrophils % % Lymphocytes % % Monocytes % % Eosinophils % % Basophils % % Neutrophils # (1.6-8.9) K/mcL Lymphocytes # (0.6-4.6) K/mcL Monocytes # (0.0-1.3) K/mcL Eosinophils # (0.0-0.6) K/mcL Basophils # (0.0-0.2) K/mcL VBG pH 7.36 (7.32-7.42) pH Units VBG pCO2 40 L (41-51) mmHg VBG pO2 156 H (25-50) mmHg VBG HCO3 23 (21-27) mEq/L Sodium 130 L (136-145) mEq/L Potassium 4.5 (3.5-5.1) mEq/L Chloride 99 (98-107) mEq/L Carbon Dioxide 21 L (23-29) mEq/L BUN 8 (6-20) mg/dL Creatinine 0.88 (0.60-1.20) mg/dL Est GFR ( Amer) > 60 (> 60) Est GFR (Non-Af Amer) > 60 (> 60) BUN/Creatinine Ratio 9 (6-26) Glucose 845 H* (70-105) mg/dL POC Glucose (70-99) mg/dL Calculated Osmolality 310 H (280-300) Calcium 9.4 (8.6-10.3) mg/dL Total Bilirubin 0.4 (0.3-1.0) mg/dL AST 13 (13-39) Units/L ALT 19 (7-52) Units/L Alkaline Phosphatase 78 (34-104) Units/L Troponin I < 0.03 (< 0.04) ng/mL Serum Total Protein 6.6 (6.4-8.9) g/dL Albumin 4.2 (3.5-5.7) g/dL Globulin 2.4 (2.4-3.5) g/dL Albumin/Globulin Ratio 1.8 (1.1-2.2) Beta-Hydroxybutyric Acd 0.21 (0.02-0.27) mmol/L Urine Color (Yellow) Urine Clarity (Clear) Urine pH (5.0-8.0) pH Units Ur Specific Rankin (1.010-1.025) Urine Protein (Neg-Trace) mg/dL Urine Glucose (UA) (Normal) mg/dL Urine Ketones (Negative) mg/dL Urine Blood (Negative) Urine Nitrite (Negative) Urine Bilirubin (Negative) Urine Urobilinogen (Normal) mg/dL Ur Leukocyte Esterase (Negative) Ur Culture Indicated? (NO) 05/12/19 05/12/19 Range/Units 14:48 15:42 WBC (4.3-11.1) K/mcL RBC (3.82-4.97) M/mcL Hgb (11.5-15.4) g/dL Hct (35.3-44.9) % MCV (83.0-100.0) fL MCH (28.0-33.3) pg MCHC (31.6-35.5) g/dL RDW (11.5-14.5) % Plt Count (140-400) K/mcL MPV (9.4-12.4) fL Immature Gran % (0-4) % Seg Neutrophils % % Lymphocytes % % Monocytes % % Eosinophils % % Basophils % % Neutrophils # (1.6-8.9) K/mcL Lymphocytes # (0.6-4.6) K/mcL Monocytes # (0.0-1.3) K/mcL Eosinophils # (0.0-0.6) K/mcL Basophils # (0.0-0.2) K/mcL VBG pH (7.32-7.42) pH Units VBG pCO2 (41-51) mmHg VBG pO2 (25-50) mmHg VBG HCO3 (21-27) mEq/L Sodium (136-145) mEq/L Potassium (3.5-5.1) mEq/L Chloride (98-107) mEq/L Carbon Dioxide (23-29) mEq/L BUN (6-20) mg/dL Creatinine (0.60-1.20) mg/dL Est GFR ( Amer) (> 60) Est GFR (Non-Af Amer) (> 60) BUN/Creatinine Ratio (6-26) Glucose (70-105) mg/dL POC Glucose > 600 H* (70-99) mg/dL Calculated Osmolality (280-300) Calcium (8.6-10.3) mg/dL Total Bilirubin (0.3-1.0) mg/dL AST (13-39) Units/L ALT (7-52) Units/L Alkaline Phosphatase (34-104) Units/L Troponin I (< 0.04) ng/mL Serum Total Protein (6.4-8.9) g/dL Albumin (3.5-5.7) g/dL Globulin (2.4-3.5) g/dL Albumin/Globulin Ratio (1.1-2.2) Beta-Hydroxybutyric Acd (0.02-0.27) mmol/L Urine Color Yellow (Yellow) Urine Clarity Clear (Clear) Urine pH 6.5 (5.0-8.0) pH Units Ur Specific Rankin 1.030 H (1.010-1.025) Urine Protein Negative (Neg-Trace) mg/dL Urine Glucose (UA) >=1000 H (Normal) mg/dL Urine Ketones Negative (Negative) mg/dL Urine Blood Negative (Negative) Urine Nitrite Negative (Negative) Urine Bilirubin Negative (Negative) Urine Urobilinogen Normal (Normal) mg/dL Ur Leukocyte Esterase Negative (Negative) Ur Culture Indicated? NO (NO) - Radiology Data Radiology results reviewed: Yes I reviewed the patient's radiology results. Chest X-Ray 05/12/19 13:11 IMPRESSION: No acute process. D/ / Kevin Persaud MD / Kevin Persaud MD Interpreting Provider: Kevin Persaud MD Chest X-Ray 05/12/19 13:11 IMPRESSION: No acute process. D/ / Kevin Persaud MD / Kevin Persaud MD Interpreting Provider: Kevin Persaud MD Head CT 05/12/19 16:13 IMPRESSION: No acute intracranial abnormality. D/ / Kevin Persaud MD / Kevin Persaud MD Interpreting Provider: Kevin Persaud MD - EKG Data EKG #1 EKG attestation: Yes I reviewed and interpreted this EKG. EKG shows normal: sinus rhythm Rate: normal When compared to previous EKG there are: no significant changes (EKG 04/01/19 for comparison) Interpretation: no acute changes, normal EKG
[2019-05-12] MEDS: 0.9 % Sodium Chloride 1,000 ML IVC SCH ×2 (14:11→15:39)
[2019-05-12 14:34] LABS: VBG HCO3 23 mEq/L (21-27); VBG PCO2 40 mmHg (41-51); VBG PH 7.36 pH Units (7.32-7.42); VBG PO2 156 mmHg (25-50)
[2019-05-12 14:47] LABS: Basophils # 0.1 K/mcL (0.0-0.2); Basophils % 1.2 %; Eosinophils # 0.3 K/mcL (0.0-0.6); Eosinophils % 4.2 %; Hematocrit 44.1 % (35.3-44.9); Hemoglobin 15.4 g/dL (11.5-15.4); Immature Granulocytes % 0.1 % (0-4); Lymphocytes # 1.9 K/mcL (0.6-4.6); Mean Corpuscular HGB Conc 34.9 g/dL (31.6-35.5); Mean Corpuscular Hemoglobin 29.3 pg (28.0-33.3); Mean Corpuscular Volume 83.8 fL (83.0-100.0); Mean Platelet Volume 9.6 fL (9.4-12.4); Monocytes # 0.4 K/mcL (0.0-1.3); Monocytes % 5.6 %; Neutrophils # 4.3 K/mcL (1.6-8.9); Platelet Count 168 K/mcL (140-400); Red Blood Count 5.26 M/mcL (3.82-4.97); Red Cell Distribution Width 12.7 % (11.5-14.5); Segmented Neutrophils % 61.9 %; White Blood Count 6.9 K/mcL (4.3-11.1)
[2019-05-12 15:06] LABS: Bilirubin,Urine Negative (Negative); Blood,Urine Negative (Negative); Clarity,Urine Clear (Clear); Color,Urine Yellow (Yellow); Glucose,Urine (UA) >=1000 mg/dL (Normal); Ketones,Urine Negative (Negative); Leukocyte Esterase,Urine Negative (Negative); Nitrite,Urine Negative (Negative); PH,Urine 6.5 pH Units (5.0-8.0); Protein,Urine Negative (Neg-Trace); Urobilinogen,Urine Normal (Normal)
[2019-05-12 15:31] LABS: Alanine Aminotransferase 19 Units/L (7-52); Albumin 4.2 g/dL (3.5-5.7); Albumin/Globulin Ratio 1.8 (1.1-2.2); Alkaline Phosphatase 78 Units/L (34-104); Aspartate Amino Transferase 13 Units/L (13-39); BUN/Creatinine Ratio 9 (6-26); Bilirubin,Total 0.4 mg/dL (0.3-1.0); Blood Urea Nitrogen 8 mg/dL (6-20); Calcium 9.4 mg/dL (8.6-10.3); Carbon Dioxide 21 mEq/L (23-29); Chloride 99 mEq/L (98-107); Globulin 2.4 g/dL (2.4-3.5); Glucose 845 mg/dL (70-105); Osmolality,Calculated 310 (280-300); Potassium 4.5 mEq/L (3.5-5.1); Sodium 130 mEq/L (136-145); Total Protein 6.6 g/dL (6.4-8.9); Troponin I < 0.03 ng/mL (< 0.04); eGFR For African Americans > 60 (> 60); eGFR For Non-African Americans > 60 (> 60)
[2019-05-12] MEDS ORDERED: Insulin Human Regular 100 UNIT in 0.9 % Sodium Chloride 100 ML IVC SCH ×2 (15:45→18:00)
--- NOTE | 2019-05-12 17:01 | Emergency Department Note ---
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 Qualified Code(s): E11.65 - Type 2 diabetes mellitus with hyperglycemia Disposition: Admitted As Inpatient Condition: Good Time of Disposition: 15:58 General Adult HPI - General Chief complaint: ED Seizure Stated complaint: seizure Time Seen by Provider: 05/12/19 13:21 Source: patient Limitations: no limitations - History of Present Illness Pain Scale: 0 - Related Data Home Medications Medication Instructions Recorded Confirmed Gabapentin [Neurontin] 800 mg PO 0900,1200 05/15/15 04/01/19 Albuterol Neb [Proventil Neb] 2.5 mg IH TID PRN 03/07/17 04/01/19 Ranitidine HCl [Zantac] 300 mg PO QPM 03/07/17 04/01/19 Tizanidine HCl [Zanaflex] 4 mg PO Q8H PRN 03/07/17 04/01/19 Gabapentin [Neurontin] 1,600 mg PO HS 04/07/17 04/01/19 LORazepam [Ativan] 0.5 mg PO BID PRN 01/08/18 04/01/19 Atorvastatin [Lipitor] 40 mg PO QPM 03/19/18 04/01/19 Insulin Regular, Human [Novolin R] 60 unit .ROUTE BID 10/10/18 04/01/19 Levothyroxine Sodium 25 mcg PO DAILY 10/10/18 04/01/19 Promethazine [Phenergan] 25 mg PO Q8H PRN 10/10/18 04/01/19 Quetiapine Fumarate [Seroquel] 400 mg PO HS 10/10/18 04/01/19 Venlafaxine HCl [Venlafaxine HCl 150 mg PO DAILY 10/10/18 04/01/19 ER] Pantoprazole Sodium [Protonix] 40 mg PO DAILY 03/17/19 04/01/19 Topiramate [Topamax] 25 mg PO DAILY 03/17/19 04/01/19 Insulin NPH Hum/Reg Insulin Hm 60 units 04/01/19 [Novolin 70-30 Flexpen] Allergies Allergy/AdvReac Type Severity Reaction Status Date / Time meperidine [From Demerol] Allergy Rash Verified 03/26/19 04:44 chlordiazepoxide AdvReac Hallucinati Verified 03/26/19 04:44 [From Librax (with ng methscopolamine)] Clidinium AdvReac Hallucinati Verified 03/26/19 04:44 [From Librax (with ng clidinium)] insulin lispro AdvReac See Verified 03/26/19 04:44 [From Humalog U-100 Insulin] Comments ipratropium [From Combivent] AdvReac Vomiting Verified 03/26/19 04:44 metoclopramide [From Reglan] AdvReac Palpitation Verified 03/26/19 04:44 s nabumetone [From Relafen] AdvReac Palpitation Verified 03/26/19 04:44 s scopolamine AdvReac Hallucinati Verified 03/26/19 04:44 [From Librax (with ng methscopolamine)] ENT ED: Reports: dysphagia Gastrointestinal: Reports: abdominal pain, diarrhea Genitourinary: Reports: dysuria, hematuria Musculoskeletal: Reports: other (Periapical swelling, poor dentition) Neurological: Reports: other (Pseudoseizure) Psychiatric: Reports: depression Endocrine: Reports: fatigue Past Medical History - Past Medical History Medical history: Reports: asthma, COPD, diabetes, GERD, hyperlipidemia, RA, seizures, thyroid disease Surgical history: Reports: cholecystectomy, hysterectomy, sinus surgery Psychiatric history: Reports: bipolar, depression, prior suicide attempt, previous psychiatric hospitalization CHEMIST INTERNSHIP history: Reports: non-contributory - Social History Smoking Status: Current every day smoker Smokeless Tobacco Status: No Alcohol use: Reports: rarely Drug use: Reports: none Physical Exam - General Limitations: no limitations General appearance: alert, in no apparent distress Course Vital Signs Temperature 98.2 F 05/12/19 13:02 Pulse Rate 86 05/12/19 13:02 Respiratory Rate 15 05/12/19 13:02 Blood Pressure 154/87 05/12/19 13:02 O2 Sat by Pulse Oximetry 98 05/12/19 13:02 Temperature 98.2 F 05/12/19 13:02 Pulse Rate 89 05/12/19 18:09 Respiratory Rate 17 05/12/19 18:09 Blood Pressure 161/88 05/12/19 18:09 O2 Sat by Pulse Oximetry 100 05/12/19 18:09 Oxygen Delivery Oxygen Delivery Room Air Medical Decision Making - Lab Data Result diagrams: 05/12/19 14:12 05/12/19 14:12 Lab Results 05/12/19 05/12/19 05/12/19 Range/Units 13:03 13:04 14:12 WBC 6.9 (4.3-11.1) K/mcL RBC 5.26 H (3.82-4.97) M/mcL Hgb 15.4 (11.5-15.4) g/dL Hct 44.1 (35.3-44.9) % MCV 83.8 (83.0-100.0) fL MCH 29.3 (28.0-33.3) pg MCHC 34.9 (31.6-35.5) g/dL RDW 12.7 (11.5-14.5) % Plt Count 168 (140-400) K/mcL MPV 9.6 (9.4-12.4) fL Immature Gran % 0.1 (0-4) % Seg Neutrophils % 61.9 % Lymphocytes % 27.0 % Monocytes % 5.6 % Eosinophils % 4.2 % Basophils % 1.2 % Neutrophils # 4.3 (1.6-8.9) K/mcL Lymphocytes # 1.9 (0.6-4.6) K/mcL Monocytes # 0.4 (0.0-1.3) K/mcL Eosinophils # 0.3 (0.0-0.6) K/mcL Basophils # 0.1 (0.0-0.2) K/mcL VBG pH (7.32-7.42) pH Units VBG pCO2 (41-51) mmHg VBG pO2 (25-50) mmHg VBG HCO3 (21-27) mEq/L Sodium (136-145) mEq/L Potassium (3.5-5.1) mEq/L Chloride (98-107) mEq/L Carbon Dioxide (23-29) mEq/L BUN (6-20) mg/dL Creatinine (0.60-1.20) mg/dL Est GFR ( Amer) (> 60) Est GFR (Non-Af Amer) (> 60) BUN/Creatinine Ratio (6-26) Glucose (70-105) mg/dL POC Glucose > 600 H* > 600 H* (70-99) mg/dL Calculated Osmolality (280-300) Calcium (8.6-10.3) mg/dL Total Bilirubin (0.3-1.0) mg/dL AST (13-39) Units/L ALT (7-52) Units/L Alkaline Phosphatase (34-104) Units/L Troponin I (< 0.04) ng/mL Serum Total Protein (6.4-8.9) g/dL Albumin (3.5-5.7) g/dL Globulin (2.4-3.5) g/dL Albumin/Globulin Ratio (1.1-2.2) Beta-Hydroxybutyric Acd (0.02-0.27) mmol/L Urine Color (Yellow) Urine Clarity (Clear) Urine pH (5.0-8.0) pH Units Ur Specific [place] (1.010-1.025) Urine Protein (Neg-Trace) mg/dL Urine Glucose (UA) (Normal) mg/dL Urine Ketones (Negative) mg/dL Urine Blood (Negative) Urine Nitrite (Negative) Urine Bilirubin (Negative) Urine Urobilinogen (Normal) mg/dL Ur Leukocyte Esterase (Negative) Ur Culture Indicated? (NO) 05/12/19 05/12/19 05/12/19 Range/Units 14:12 14:12 14:29 WBC (4.3-11.1) K/mcL RBC (3.82-4.97) M/mcL Hgb (11.5-15.4) g/dL Hct (35.3-44.9) % MCV (83.0-100.0) fL MCH (28.0-33.3) pg MCHC (31.6-35.5) g/dL RDW (11.5-14.5) % Plt Count (140-400) K/mcL MPV (9.4-12.4) fL Immature Gran % (0-4) % Seg Neutrophils % % Lymphocytes % % Monocytes % % Eosinophils % % Basophils % % Neutrophils # (1.6-8.9) K/mcL Lymphocytes # (0.6-4.6) K/mcL Monocytes # (0.0-1.3) K/mcL Eosinophils # (0.0-0.6) K/mcL Basophils # (0.0-0.2) K/mcL VBG pH 7.36 (7.32-7.42) pH Units VBG pCO2 40 L (41-51) mmHg VBG pO2 156 H (25-50) mmHg VBG HCO3 23 (21-27) mEq/L Sodium 130 L (136-145) mEq/L Potassium 4.5 (3.5-5.1) mEq/L Chloride 99 (98-107) mEq/L Carbon Dioxide 21 L (23-29) mEq/L BUN 8 (6-20) mg/dL Creatinine 0.88 (0.60-1.20) mg/dL Est GFR ( Amer) > 60 (> 60) Est GFR (Non-Af Amer) > 60 (> 60) BUN/Creatinine Ratio 9 (6-26) Glucose 845 H* (70-105) mg/dL POC Glucose (70-99) mg/dL Calculated Osmolality 310 H (280-300) Calcium 9.4 (8.6-10.3) mg/dL Total Bilirubin 0.4 (0.3-1.0) mg/dL AST 13 (13-39) Units/L ALT 19 (7-52) Units/L Alkaline Phosphatase 78 (34-104) Units/L Troponin I < 0.03 (< 0.04) ng/mL Serum Total Protein 6.6 (6.4-8.9) g/dL Albumin 4.2 (3.5-5.7) g/dL Globulin 2.4 (2.4-3.5) g/dL Albumin/Globulin Ratio 1.8 (1.1-2.2) Beta-Hydroxybutyric Acd 0.21 (0.02-0.27) mmol/L Urine Color (Yellow) Urine Clarity (Clear) Urine pH (5.0-8.0) pH Units Ur Specific [place] (1.010-1.025) Urine Protein (Neg-Trace) mg/dL Urine Glucose (UA) (Normal) mg/dL Urine Ketones (Negative) mg/dL Urine Blood (Negative) Urine Nitrite (Negative) Urine Bilirubin (Negative) Urine Urobilinogen (Normal) mg/dL Ur Leukocyte Esterase (Negative) Ur Culture Indicated? (NO) 05/12/19 05/12/19 Range/Units 14:48 15:42 WBC (4.3-11.1) K/mcL RBC (3.82-4.97) M/mcL Hgb (11.5-15.4) g/dL Hct (35.3-44.9) % MCV (83.0-100.0) fL MCH (28.0-33.3) pg MCHC (31.6-35.5) g/dL RDW (11.5-14.5) % Plt Count (140-400) K/mcL MPV (9.4-12.4) fL Immature Gran % (0-4) % Seg Neutrophils % % Lymphocytes % % Monocytes % % Eosinophils % % Basophils % % Neutrophils # (1.6-8.9) K/mcL Lymphocytes # (0.6-4.6) K/mcL Monocytes # (0.0-1.3) K/mcL Eosinophils # (0.0-0.6) K/mcL Basophils # (0.0-0.2) K/mcL VBG pH (7.32-7.42) pH Units VBG pCO2 (41-51) mmHg VBG pO2 (25-50) mmHg VBG HCO3 (21-27) mEq/L Sodium (136-145) mEq/L Potassium (3.5-5.1) mEq/L Chloride (98-107) mEq/L Carbon Dioxide (23-29) mEq/L BUN (6-20) mg/dL Creatinine (0.60-1.20) mg/dL Est GFR ( Amer) (> 60) Est GFR (Non-Af Amer) (> 60) BUN/Creatinine Ratio (6-26) Glucose (70-105) mg/dL POC Glucose > 600 H* (70-99) mg/dL Calculated Osmolality (280-300) Calcium (8.6-10.3) mg/dL Total Bilirubin (0.3-1.0) mg/dL AST (13-39) Units/L ALT (7-52) Units/L Alkaline Phosphatase (34-104) Units/L Troponin I (< 0.04) ng/mL Serum Total Protein (6.4-8.9) g/dL Albumin (3.5-5.7) g/dL Globulin (2.4-3.5) g/dL Albumin/Globulin Ratio (1.1-2.2) Beta-Hydroxybutyric Acd (0.02-0.27) mmol/L Urine Color Yellow (Yellow) Urine Clarity Clear (Clear) Urine pH 6.5 (5.0-8.0) pH Units Ur Specific [place] 1.030 H (1.010-1.025) Urine Protein Negative (Neg-Trace) mg/dL Urine Glucose (UA) >=1000 H (Normal) mg/dL Urine Ketones Negative (Negative) mg/dL Urine Blood Negative (Negative) Urine Nitrite Negative (Negative) Urine Bilirubin Negative (Negative) Urine Urobilinogen Normal (Normal) mg/dL Ur Leukocyte Esterase Negative (Negative) Ur Culture Indicated? NO (NO) Attestation Statement - Attestation Attestation: I examined this patient and my medical decision-making was reviewed with the Resident Physician. I agree with the documented findings, disposition and treatment plan as described except to the extent set forth below. Patient 43-year-old female presents to department with chief complaint of possible seizure and also hyperglycemia. Patient is a long running history of non-epileptiform seizures and is seen multiple times in the emergency department for these. Patient was upstairs visiting a relative and laid down and then woke up later on. The patient reports that her blood sugars are elevated in the 500+ range. Patient has other eyes no complaint. Physical exam patient awake alert no acute distress Medical decision management. Let recision patient not be in DKA but she had a blood sugar of 845 with no anion gap or no ketosis. The patient was hydrated in the ER and started an insulin drip the case was discussed with the hospitalist the patient received further care in the inpatient setting
[2019-05-12] MEDS ORDERED: Insulin Regular, Human 100 UNIT/ML IV PRN (19:49)
[2019-05-12] MEDS ORDERED: D5% in 0.45% NACL w KCl 20 MEQ/1,000 ML MLS IVC PRN (19:49)
[2019-05-12] MEDS ORDERED: D5% in 0.45% NACL 1,000 ML IVC PRN (19:49)
[2019-05-12] MEDS ORDERED: 0.45 % Sodium Chloride w/KCl 20 MEQ/1,000 ML MLS IVC SCH (20:00)
[2019-05-12] MEDS ORDERED: 0.9 % Sodium Chloride 1,000 ML IVC SCH (20:00)
--- NOTE | 2019-05-12 22:07 | Internal Med History&Physical ---
Date of Encounter: 05/12/19 Time of Encounter: 22:01 Internal Medicine - H&P: HPI Chief complaint: Seizure/hyperglycemia History of present illness: Ms. Minor is a 43 year old female with a past medical history of type 2 diabetes, GERD, hyperlipidemia, asthma, hypertension, thyroid disease and valvular heart disease who presented to the ED today after patient briefly lost consciousness earlier today. This episode of loss of consciousness was witnessed by her sister who stated that she had fallen asleep and was difficult to arouse. Patient reportedly has not been sleeping well and and has been stressed out about her mother's heart catheter which is plan for tomorrow, as well as an upcoming move. She has been to the ED repeatedly for elevated blood glucose, most recently 3 weeks ago at OSH that resulted in ICU admit. She recalls feeling extremely fatigued prior to passing out. She said during the past week she has had approximately 6 similar events, with one episode of urinary incontinence and no tongue lacerations. She also reports hematuria that has now resolved after she passed 2 stones two days ago. Patient endorses enuresis x3 during past week, CVA tenderness, intermittent diarrhea without nausea or vomiting. She denies AMS apart from ongoing fatigue, CP, SOB, numbness, weakness, vision changes. She stated her usual insulin regime has not been working, nor is her pump; she is expecting a replacement pump tomorrow. Patient also has a painful periapical swelling on left side that she has noticed for 2 weeks and attributes to a decayed tooth. She is taking penicillin but has not been evaluated by a dentist. She denies difficulty swallowing worse than baseline dysphagia, fever, discharge, or voice changes. VS stable and WNL. POC Glucose >600, plan was to treat for DKA once K+, serum ketones, bicarbonate results return. However, serum pH normal, bicarb normal, no ketones therefore will treat for hyperglycemia instead. K+ also WNL. Glucose measured by lab at 845. Started on IV humalin 7 units/hr, will talk to hospitalist about admission. CXR WNL. EKG WNL. Patient is mentating well and not having trouble breathing. Given lack of neurological symptoms and no anticoagulation, CT head not indicated. Patient is not having alarm symptoms such as drooling, muffled voice, inability to tolerate PO intake so CT facial bones likewise not indicated. Will refer to dentist for evaluation of periapical abscess and switch antibiotics to clindamycin to better cover oral anaerobes. UA ordered in light of hematuria, CVA tenderness. Negative for UTI. Hospitalist will admit once glucose is lower following IV insulin. Head CT ordered at request of hospitalist given patient's pseudoseizure to rule out intracranial abnormality. Head CT negative. Repeat glucose 503. Titration adjusted per [harmacist recommendation, patient admitted. Past Med Surg Social Fam HX - Past Medical History Medical history: asthma, COPD, diabetes, GERD, hyperlipidemia, RA, seizures, thy roid disease Additional medical history: kidney stones. polycythemia. sleep apnea. bicuspid aortic valve Psychiatric history: bipolar, depression, prior suicide attempt, previous psychiatric hospitalization - Past Surgical History Surgical History: cholecystectomy, hysterectomy, sinus surgery Additional surgical history: EGD HEART CATH Facial reconstruction. sinus surgery. right and left hip scopes. right and left knee scopes. heart cath no stents. cyst removed from rt wrist. tonsillectomy - Social History Smoking Status: Current every day smoker Smokeless Tobacco Status: No Alcohol use: rarely Drug use: none - Family History Father Living Status: Still Living Hx Family Cardiac Disorders: Yes Hx Family Cancer: Yes (Lung cancer) Hx Family GI Disorders: Yes (Ulcers, hiatal hernia) Hx Family Endocrine Disorder: Yes (DM) Hx Family Neuromuscular Disorders: No Hx Family Neurologic Disorders: No Hx Family HEENT Disorders: No Hx Family Autoimmune Disorders: No Mother Living Status: Still Living Hx Family Cardiac Disorders: Yes (Heart disease) Internal Medicine - H&P: Meds Gabapentin [Neurontin] 800 mg PO 0900,1200 05/15/15 [History] Albuterol Neb [Proventil Neb] 2.5 mg IH TID PRN 03/07/17 [History] Ranitidine HCl [Zantac] 300 mg PO QPM 03/07/17 [History] Tizanidine HCl [Zanaflex] 4 mg PO Q8H PRN 03/07/17 [History] Gabapentin [Neurontin] 1,600 mg PO HS 04/07/17 [History] Atorvastatin [Lipitor] 40 mg PO QPM 03/19/18 [History] Levothyroxine Sodium 25 mcg PO QAM 10/10/18 [History] Promethazine [Phenergan] 25 mg PO Q8H PRN 10/10/18 [History] Venlafaxine HCl [Venlafaxine HCl ER] 150 mg PO DAILY 10/10/18 [History] Insulin NPH Hum/Reg Insulin Hm [Novolin 70-30 Flexpen] 60 units SQ BID 04/01/19 [History] Quetiapine Fumarate [Seroquel] 600 mg PO HS 05/12/19 [History] Topiramate 50 mg PO HS 05/12/19 [History] clonazePAM [Clonazepam] 1 mg PO BID 05/12/19 [History] Amoxicillin/Clavulanate [Augmentin] 875 mg PO BIDWM #10 tablet 05/13/19 [Rx] Allergy/AdvReac Type Severity Reaction Status Date / Time meperidine [From Demerol] Allergy Rash Verified 03/26/19 04:44 chlordiazepoxide AdvReac Hallucinati Verified 03/26/19 04:44 [From Librax (with ng methscopolamine)] Clidinium AdvReac Hallucinati Verified 03/26/19 04:44 [From Librax (with ng clidinium)] insulin lispro AdvReac See Verified 03/26/19 04:44 [From Humalog U-100 Insulin] Comments ipratropium [From Combivent] AdvReac Vomiting Verified 03/26/19 04:44 metoclopramide [From Reglan] AdvReac Palpitation Verified 03/26/19 04:44 s nabumetone [From Relafen] AdvReac Palpitation Verified 03/26/19 04:44 s scopolamine AdvReac Hallucinati Verified 03/26/19 04:44 [From Librax (with ng methscopolamine)] All Systems PM: A 10-system review of systems was performed and is negative for pertinent findings except as documented above in the HPI. - Constitutional Constitutional: no chills, no fever(s), no night sweats - EENT Eyes: no change in vision, no discharge, no pain, no photophobia Ears: no ear discharge, no ear pain, no tinnitus Nose, mouth and throat: no dysphagia, no nasal discharge, no neck pain, no sore throat - Cardiovascular Cardiovascular ROS IM: no chest pain, no diaphoresis, no dyspnea, no lightheadedness, no palpitations, no syncope - Respiratory Respiratory: no cough, no dyspnea, no wheezing, no excessive phlegm production - Gastrointestinal Gastrointestinal: no abdominal pain, no diarrhea, no hematemesis, no hematochezia, no melena, no nausea, no vomiting - Genitourinary Genitourinary: no change in urinary stream, no dysuria, no flank pain, no hematuria - Musculoskeletal Musculoskeletal ROS IM: no numbness, no tingling - Integumentary Integumentary IM: no rash, no unusual bruising - Neurological Neurological ROS: no confusion, no convulsions, no focal weakness, no numbness, no tingling, no tremor(s) - Hematologic/Lymphatic Hematologic/Lymphatic: no easy bruising - Constitutional Vitals: Temp Pulse Resp BP Pulse Ox 98.4 F 83 18 157/85 96 05/12/19 20:59 05/12/19 20:59 05/12/19 20:59 05/12/19 20:59 05/12/19 20:59 Exam: General: Alert and oriented Skin:Normal color, no rash, no lesions. HEENT:EOM, pupils equal, round and reactive. Cardiovascular:Normal S1 & S2, no rubs, murmurs or gallops. No JVD. Pulse regular. Lungs:Normal breath sounds, no wheezes or crackles. Abdomen:Soft, non-tender, no rigidity. Extremities:No deformity, no edema or tenderness, no joint swelling or clubbing. Neurological:Normal cognition and motor skills. Pulses:Carotid and radial pulses normal +2. Rest of the physical exam is non contributory Internal Med - H&P Results - Labs CBC & Chem 7: 05/12/19 14:12 05/13/19 01:49 Labs: Short CBC 05/12/19 Range/Units 14:12 WBC 6.9 (4.3-11.1) K/mcL Hgb 15.4 (11.5-15.4) g/dL Hct 44.1 (35.3-44.9) % Plt Count 168 (140-400) K/mcL Neutrophils # 4.3 (1.6-8.9) K/mcL BMP 05/12/19 14:12 Sodium 130 L Potassium 4.5 Chloride 99 Carbon Dioxide 21 L BUN 8 Creatinine 0.88 Glucose 845 H* Calcium 9.4 Cardiac Enzymes 05/12/19 Range/Units 14:12 Troponin I < 0.03 (< 0.04) ng/mL Liver Function 05/12/19 Range/Units 14:12 Total Bilirubin 0.4 (0.3-1.0) mg/dL AST 13 (13-39) Units/L ALT 19 (7-52) Units/L Alkaline Phosphatase 78 (34-104) Units/L Albumin 4.2 (3.5-5.7) g/dL Urine 05/12/19 Range/Units 14:48 Urine Color Yellow (Yellow) Urine Clarity Clear (Clear) Urine pH 6.5 (5.0-8.0) pH Units Ur Specific [place] 1.030 H (1.010-1.025) Urine Protein Negative (Neg-Trace) mg/dL Urine Glucose (UA) >=1000 H (Normal) mg/dL - ABG Interpretation ABG results: 05/12/19 14:29 VBG pH 7.36 VBG pCO2 40 L VBG pO2 156 H VBG HCO3 23 - Impressions ITS Impressions Chest X-Ray 05/12/19 13:11 IMPRESSION: No acute process. D/ / Kevin Persaud MD / Kevin Persaud MD Interpreting Provider: Kevin Persaud MD Head CT 05/12/19 16:13 IMPRESSION: No acute intracranial abnormality. D/ / Kevin Persaud MD / Kevin Persaud MD Interpreting Provider: Kevin Persaud MD - Assessment and Plan (1) Hyperglycemia due to type 2 diabetes mellitus Status: Acute Assessment and plan: Patient presenting with a blood glucose of 845 likely secondary to medication noncompliance. No evidence of anion gap, ketonemia or acidosis. Calculated s raffi osmolality 310. Patient appears to have underlying history of seizures versus pseudoseizures which likely was exacerbated by underlying hyperglycemia. Fluid bolus given in the ED in addition to subcutaneous insulin. Blood glucose now 300s. Clinically mentating well. -Continue insulin drip plus fluids -Blood glucose checks every hour -We will monitor BMP every 2 hours -IV potassium per protocol -Transition to subcutaneous insulin once hyperglycemia resolves. 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 Patient reports is his atypical presentation of her seizure activity and she reports is typically takes her several minutes to be oriented to herself. She however denies any formal evaluation by a neurologist or EEG workup. Patient states she was to follow-up with a neuropsychiatrist at one point which has not happened yet. Given unclear history and reports of seizure versus pseudocyst seizure, I feel that further definitive workup is warranted. -Telemetry -Seizure precautions -Neurology consult for further evaluation and need for possible EEG. (3) Hypothyroidism Status: Chronic Assessment and plan: Resume home levothyroxine Qualifiers: Hypothyroidism type: unspecified Qualified Code(s): E03.9 - Hypothyroidism, unspecified (4) Toothache Status: Acute Assessment and plan: We will start patient on clindamycin for possible dental infection. - Time Spent With Patient Total time spent is greater than 50% in coordination of care (as documented) at patient's floor/unit and/or counseling patient:
[2019-05-12 22:09] LABS: BUN/Creatinine Ratio 13 (6-26); Blood Urea Nitrogen 8 mg/dL (6-20); Calcium 9.1 mg/dL (8.6-10.3); Carbon Dioxide 22 mEq/L (23-29); Chloride 104 mEq/L (98-107); Glucose 304 mg/dL (70-105); Osmolality,Calculated 288 (280-300); Potassium 3.3 mEq/L (3.5-5.1); Sodium 134 mEq/L (136-145); eGFR For African Americans > 60 (> 60); eGFR For Non-African Americans > 60 (> 60)
[2019-05-12] MEDS ORDERED: tiZANidine 4 MG TABLET PO PRN (22:37)
[2019-05-12] MEDS ORDERED: Albuterol 2.5 MG/3 ML NEBULIZER IH PRN (22:37)
[2019-05-12] MEDS ORDERED: *HR* LORazepam 2 MG/ML VIAL IVP PRN (22:45)
[2019-05-12] MEDS ORDERED: Insulin DETEMIR 100 UNIT/ML X5UNITS SQ ONE (22:53)
[2019-05-12 23:29] LABS: BUN/Creatinine Ratio 12 (6-26); Blood Urea Nitrogen 8 mg/dL (6-20); Calcium 8.9 mg/dL (8.6-10.3); Carbon Dioxide 22 mEq/L (23-29); Chloride 105 mEq/L (98-107); Glucose 174 mg/dL (70-105); Osmolality,Calculated 285 (280-300); Potassium 3.4 mEq/L (3.5-5.1); Sodium 136 mEq/L (136-145); eGFR For African Americans > 60 (> 60); eGFR For Non-African Americans > 60 (> 60)
[2019-05-12] MEDS: clonazePAM 1 MG TABLET PO SCH (23:36)
--- NOTE | 2019-05-12 23:47 | Electrocardiograph Report ---
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
[2019-05-13] MEDS ORDERED: Topiramate 25 MG TABLET PO SCH (00:15)
[2019-05-13] MEDS ORDERED: Gabapentin 400 MG CAPSULE PO SCH (00:15)
[2019-05-13] MEDS: Ampicillin/Sulbactam 3,000 MG in 0.9 % Sodium Chloride Mini Bag 100 ML IVPB SCH ×3 (00:46→12:32)
[2019-05-13 02:33] LABS: BUN/Creatinine Ratio 13 (6-26); Blood Urea Nitrogen 7 mg/dL (6-20); Calcium 8.6 mg/dL (8.6-10.3); Carbon Dioxide 21 mEq/L (23-29); Chloride 106 mEq/L (98-107); Glucose 238 mg/dL (70-105); Osmolality,Calculated 292 (280-300); Potassium 3.2 mEq/L (3.5-5.1); Sodium 138 mEq/L (136-145); eGFR For African Americans > 60 (> 60); eGFR For Non-African Americans > 60 (> 60)
[2019-05-13] MEDS ORDERED: Levothyroxine 25 MCG TABLET PO SCH (06:30)
[2019-05-13] MEDS ORDERED: Insulin NPH/REG 70/30 100 UNIT/ML (x5UNIT) SQ SCH (07:30)
[2019-05-13] MEDS ORDERED: Venlafaxine XR (24 HR) 75 MG CAP.ER.24H PO SCH (09:00)
[2019-05-13 09:12] LABS: Estimated Average Glucose 301 mg/dl
[2019-05-13] MEDS: clonazePAM 1 MG TABLET PO SCH (09:19)
[2019-05-13] MEDS: Gabapentin 400 MG CAPSULE PO SCH ×2 (09:19→12:32)
[2019-05-13 11:29] VITALS: BP 129/78
--- NOTE | 2019-05-13 15:08 | Discharge Summary ---
- NOTES TO OUTPATIENT PROVIDER Notes to Outpatient Provider: Posthospital discharge for hyperglycemia uncontrolled diabetic patient patient may benefit from diabetic education classes outpatient Date of Encounter: 05/13/19 Time of Encounter: 15:06 - Discharge Diagnosis (1) Hyperglycemia due to type 2 diabetes mellitus Priority: Primary Status: Acute Assessment and Plan: Patient presenting with a blood glucose of 845 likely secondary to medication noncompliance. No evidence of anion gap, ketonemia or acidosis. Calculated serum osmolality 310. Patient appears to have underlying history of seizures versus pseudoseizures which likely was exacerbated by underlying hyperglycemia. Fluid bolus given in the ED in addition to subcutaneous insulin. Blood glucose now 300s. Clinically mentating well. Patient insulin drip was discontinued and switched to subcutaneous insulin Blood sugar trended down to 219, discussed at length the importance of glycemic control with patient. She stated she is already established with a deposition reporter and that an insulin pump was ordered for her scheduled to be delivered today. She was requested to be discharged. Patient has an appointment with the deposition reporter tomorrow we will discharge back home back on her Novolin 70/30 although not ideal however upon discussion with the pharmacist patient claims she is allergic to basal insulin. 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 Patient reports is his atypical presentation of her seizure activity and she reports is typically takes her several minutes to be oriented to herself. She however denies any formal evaluation by a neurologist or EEG workup. Patient states she was to follow-up with a neuropsychiatrist at one point which has not happened yet. Given unclear history and reports of seizure versus pseudocyst seizure, I feel that further definitive workup is warranted. Patient is requesting discharge this could be done as an outpatient with neurology. There is high threshold for seizure activity being related to hypoglycemia episodes. She did admit to having these episodes with low blood sugar reading (4) Toothache Priority: Secondary Status: Acute Assessment and Plan: She was placed on Unasyn will discharge with 5 days' course of Augmentin (5) Noncompliance Priority: Primary Status: Acute Assessment and Plan: Suspect noncompliance and non adherence to medical therapy. Attempted to educate the patient, she will benefit from outpatient close monitoring and follow-up (6) Hypothyroidism Priority: Secondary Status: Chronic Assessment and Plan: Resume home levothyroxine Qualifiers: Hypothyroidism type: unspecified Qualified Code(s): E03.9 - Hypothyroidism, unspecified (7) DVT prophylaxis Priority: Secondary Status: Acute Assessment and Plan: Discharge today per patient request Hospital course: Ms. Minor is a 43 year old female was hospitalized for hyperglycemia with blood glucose as high as 800 was placed on insulin drip, however did not meet criteria for DKA, likely HHS, she has been off the drip and back on her Novolin 70/30 blood glucose this afternoon was 219. She is already established deposition reporter and being considered for an insulin pump which is been delivered to her home today. Upon discussion with the in-house pharmacist patient appears to have history of noncompliance and non adherance to medical therapy. Patient was educated on glycemic control and complication of uncontrolled diabetes, will benefit from outpatient diabetic education classes. Discharge discussed with: patient, nurse, social work, case management, artist consultant (Pharmacist) - Time Spent with Patient Total time spent providing and/or coordinating discharge services: 35mins Specific discharge activities: Please make sure you follow up with your deposition reporter tomorrow - Discharge Medications Prescriptions: New Amoxicillin/Clavulanate [Augmentin] 875 mg PO BIDWM #10 tablet Continued Tizanidine HCl [Zanaflex] 4 mg PO Q8H PRN PRN Reason: Muscle Spasm Ranitidine HCl [Zantac] 300 mg PO QPM Albuterol Neb [Proventil Neb] 2.5 mg IH TID PRN PRN Reason: Dyspnea Gabapentin [Neurontin] 1,600 mg PO HS Promethazine [Phenergan] 25 mg PO Q8H PRN PRN Reason: Nausea Venlafaxine HCl [Venlafaxine HCl ER] 150 mg PO DAILY Levothyroxine Sodium 25 mcg PO QAM Topiramate 50 mg PO HS Quetiapine Fumarate [Seroquel] 600 mg PO HS clonazePAM [Clonazepam] 1 mg PO BID Gabapentin [Neurontin] 800 mg PO 0900,1200 Atorvastatin [Lipitor] 40 mg PO QPM Insulin NPH Hum/Reg Insulin Hm [Novolin 70-30 Flexpen] 60 units SQ BID Discontinued Pantoprazole Sodium [Protonix] 40 mg PO DAILY Penicillin VK [Pencillin VK] 500 mg PO QID Home Medications: Gabapentin [Neurontin] 800 mg PO 0900,1200 05/15/15 [History] Albuterol Neb [Proventil Neb] 2.5 mg IH TID PRN 03/07/17 [History] Ranitidine HCl [Zantac] 300 mg PO QPM 03/07/17 [History] Tizanidine HCl [Zanaflex] 4 mg PO Q8H PRN 03/07/17 [History] Gabapentin [Neurontin] 1,600 mg PO HS 04/07/17 [History] Atorvastatin [Lipitor] 40 mg PO QPM 03/19/18 [History] Levothyroxine Sodium 25 mcg PO QAM 10/10/18 [History] Promethazine [Phenergan] 25 mg PO Q8H PRN 10/10/18 [History] Venlafaxine HCl [Venlafaxine HCl ER] 150 mg PO DAILY 10/10/18 [History] Insulin NPH Hum/Reg Insulin Hm [Novolin 70-30 Flexpen] 60 units SQ BID 04/01/19 [History] Quetiapine Fumarate [Seroquel] 600 mg PO HS 05/12/19 [History] Topiramate 50 mg PO HS 05/12/19 [History] clonazePAM [Clonazepam] 1 mg PO BID 05/12/19 [History] Amoxicillin/Clavulanate [Augmentin] 875 mg PO BIDWM #10 tablet 05/13/19 [Rx] Allergies/Adverse Reactions: Allergy/AdvReac Type Severity Reaction Status Date / Time meperidine [From Demerol] Allergy Rash Verified 03/26/19 04:44 chlordiazepoxide AdvReac Hallucinati Verified 03/26/19 04:44 [From Librax (with ng methscopolamine)] Clidinium AdvReac Hallucinati Verified 03/26/19 04:44 [From Librax (with ng clidinium)] insulin lispro AdvReac See Verified 03/26/19 04:44 [From Humalog U-100 Insulin] Comments ipratropium [From Combivent] AdvReac Vomiting Verified 03/26/19 04:44 metoclopramide [From Reglan] AdvReac Palpitation Verified 03/26/19 04:44 s nabumetone [From Relafen] AdvReac Palpitation Verified 03/26/19 04:44 s scopolamine AdvReac Hallucinati Verified 03/26/19 04:44 [From Librax (with ng methscopolamine)] Date of admission: 05/12/19 19:40 Primary care physician: Kana Newberry MD Discharging clinician: Luna Bowles Anticipated date of discharge: 05/13/19 - Constitutional Vitals: Temp Pulse Resp BP Pulse Ox 98.0 F 92 16 129/78 95 05/13/19 11:25 05/13/19 11:25 05/13/19 11:25 05/13/19 11:25 05/13/19 11:25 Exam: GEN: NAD, A&O x 3, Pleasant and conversant SKIN: [place] warm acyanotic not jaundice HEART: RRR, no murmurs LUNGS: CTA no wheeze or crackles, overall non labored ABDOMEN; Soft, non tender or distended, BS x 4 normactive EXT: No LE edema, Pedal pulses 1+, radial pulses 2+ PSYCH: Mood and affect is appropriate - Patient Status Disposition: Home, Self-Care Condition: Good Functional capacity at discharge: independent ambulation Overall status at discharge: patient is back to baseline - Discharge Instructions Instructions: Diabetes Mellitus Type 2 in Adults (DC) Follow Up With: Angela Almanza MD [Partnered Physician] - 05/14/19 9:30 am Kana Newberry MD [Primary Care Provider] - 05/20/19 10:15 am - Diet and Activity Activity: resume usual activities as tolerated Diet: diabetic diet, low fat, low cholesterol, low salt diet
[2019-05-13] MEDS ORDERED: *HR* Heparin 5,000 UNIT/ML VIAL SQ SCH (23:00)
== END 2019-05-13 15:50 | disposition home or self-care (01) ==
LOC: 2NNU 12:57 → EMEROOARM 12:57 → SUATTDRO 19:40 → 2NNU 20:38
PROVIDERS: ADMIT Internal Medicine Nephrology; ATTEND Pharmacist

== ENCOUNTER 2021-01-09 14:35 | Observation (INO) ==
[2021-01-09] MEDS ORDERED: Naloxone 0.4 MG/ML INJ IVP PRN (19:13)
[2021-01-09] MEDS ORDERED: Acetaminophen 325 MG TABLET PO PRN (19:13)
[2021-01-09] MEDS ORDERED: Ondansetron 4 MG/2 ML VIAL IVP PRN (19:13)
[2021-01-09 20:30] LABS: Immature Granulocytes % 0.3 % (0-4)
[2021-01-09 20:32] LABS: Basophils % 0.5 %; Eosinophils # 0.2 K/mcL (0.0-0.6); Eosinophils % 3.4 %; Hematocrit 39.5 % (35.3-44.9); Hemoglobin 12.9 g/dL (11.5-15.4); Immature Platelets 1.9 % (1.1-6.1); Lymphocytes # 2.2 K/mcL (0.6-4.6); Lymphocytes % 36.1 %; Mean Corpuscular HGB Conc 32.7 g/dL (31.6-35.5); Mean Corpuscular Hemoglobin 28.3 pg (28.0-33.3); Mean Corpuscular Volume 86.6 fL (83.0-100.0); Mean Platelet Volume 9.1 fL (9.4-12.4); Monocytes # 0.9 K/mcL (0.0-1.3); Monocytes % 14.2 %; Neutrophils # 2.8 K/mcL (1.6-8.9); Platelet Count 83 K/mcL (140-400); Red Blood Count 4.56 M/mcL (3.82-4.97); Red Cell Distribution Width 12.9 % (11.5-14.5); Segmented Neutrophils % 45.5 %; White Blood Count 6.1 K/mcL (4.3-11.1)
[2021-01-09 20:37] LABS: INR 1.3; Prothrombin Time 15.4 Seconds (9.4-12.1)
[2021-01-09] MEDS ORDERED: D5% in Water 1,000 ML IVC PRN (20:37)
[2021-01-09] MEDS ORDERED: Dextrose Gel 15 GM/37.5 ML TUBE PO PRN ×2 (20:37)
[2021-01-09] MEDS ORDERED: *HR* Dextrose 50 % in Water (Vial) 50 ML VIAL IVP PRN (20:37)
[2021-01-09 20:39] LABS: Activated Partial Thrombo Time 36.6 Seconds (26.0-36.0)
[2021-01-09 20:53] LABS: Alanine Aminotransferase 10 Units/L (7-52); Albumin 3.1 g/dL (3.5-5.7); Albumin/Globulin Ratio 1.6 (1.1-2.2); Alkaline Phosphatase 44 Units/L (34-104); Aspartate Amino Transferase 15 Units/L (13-39); BUN/Creatinine Ratio 16 (6-26); Bilirubin,Total 0.3 mg/dL (0.3-1.0); Blood Urea Nitrogen 13 mg/dL (6-20); Carbon Dioxide 25 mEq/L (23-29); Chloride 107 mEq/L (98-107); Chol/HDL Ratio 3.3 (0-4.9); Cholesterol 85 mg/dL (< 200); Globulin 1.9 g/dL (2.4-3.5); Glucose 133 mg/dL (70-105); HDL Cholesterol 26 mg/dL (40-59); LDL Cholesterol,Calculated 32 mg/dL (< 100); Magnesium 1.7 mg/dL (1.6-2.6); Osmolality,Calculated 290 (280-300); Phosphorous 2.4 mg/dL (2.7-4.5); Potassium 4.5 mEq/L (3.5-5.1); Sodium 139 mEq/L (136-145); Triglycerides 133 mg/dL (< 150); Troponin I < 0.03 ng/mL (< 0.04); eGFR For African Americans > 60 (> 60); eGFR For Non-African Americans > 60 (> 60)
[2021-01-10] MEDS: QUEtiapine Fumarate 300 MG TABLET PO SCH ×2 (00:29→21:08)
[2021-01-10] MEDS: Gabapentin 300 MG CAPSULE PO SCH ×4 (00:29→21:07)
[2021-01-10] MEDS: Divalproex (24 HR) 500 MG TABLET PO SCH ×2 (00:29→21:09)
[2021-01-10 08:12] LABS: Hematocrit 36.7 % (35.3-44.9); Immature Platelets 2.2 % (1.1-6.1); Mean Corpuscular HGB Conc 32.7 g/dL (31.6-35.5); Mean Corpuscular Hemoglobin 28.4 pg (28.0-33.3); Mean Platelet Volume 9.4 fL (9.4-12.4); Red Blood Count 4.22 M/mcL (3.82-4.97); Red Cell Distribution Width 12.7 % (11.5-14.5); White Blood Count 4.7 K/mcL (4.3-11.1)
[2021-01-10 08:15] LABS: INR 1.3; Prothrombin Time 14.4 Seconds (9.4-12.1)
[2021-01-10 08:23] LABS: BUN/Creatinine Ratio 13 (6-26); Blood Urea Nitrogen 9 mg/dL (6-20); Calcium 8.5 mg/dL (8.6-10.3); Carbon Dioxide 25 mEq/L (23-29); Chloride 106 mEq/L (98-107); Glucose 245 mg/dL (70-105); Osmolality,Calculated 293 (280-300); Potassium 4.8 mEq/L (3.5-5.1); Sodium 138 mEq/L (136-145); eGFR For African Americans > 60 (> 60); eGFR For Non-African Americans > 60 (> 60)
[2021-01-10] MEDS ORDERED: Gadolinium Contrast Agent (WT Based) IV PRN (09:03)
[2021-01-10 09:12] LABS: Bacteria,Urine Few per hpf (None-Few); Bilirubin,Urine Negative (Negative); Blood,Urine Negative (Negative); Clarity,Urine Clear (Clear); Color,Urine Colorless (Yellow); Glucose,Urine (UA) 500 mg/dL (Normal); Ketones,Urine Trace mg/dL (Negative); Leukocyte Esterase,Urine Negative (Negative); Nitrite,Urine Negative (Negative); PH,Urine 6.5 pH Units (5.0-8.0); Protein,Urine Negative (Neg-Trace); RBC,Urine 0-3 per hpf (0-3); Squamous Epithelial Cell,Urine Few per hpf (None-Few); Urobilinogen,Urine Normal (Normal); WBC,Urine 0-3 per hpf (0-3)
[2021-01-10 09:15] LABS: Amphetamine Screen,Urine Negative ng/mL (Cutoff=1000); Barbiturate Screen,Urine Negative ng/mL (Cutoff=200); Benzodiazepines Screen,Urine Negative ng/mL (Cutoff=200); Cannabinoid Screen,Urine Negative ng/mL (Cutoff = 50); Cocaine Screen,Urine Negative ng/mL (Cutoff= 300); Opiate Screen,Urine Negative ng/mL (Cutoff=300); Phencyclidine Screen,Urine Negative ng/mL (Cutoff=25)
[2021-01-10] MEDS: Venlafaxine XR (24 HR) 75 MG CAP.ER.24H PO SCH (09:40)
[2021-01-10] MEDS ORDERED: Insulin LISPRO 300 UNITS/3 ML VIAL SUBQ SCH (11:30)
[2021-01-10] MEDS ORDERED: Albuterol 2.5 MG/3 ML NEBULIZER IH PRN (12:29)
[2021-01-10] MEDS ORDERED: ACETAMINOPHEN 650 MG PO PRN (12:29)
[2021-01-10] MEDS: Insulin Regular, Human 100 UNIT/ML SUBQ SCH ×2 (13:43→18:22)
[2021-01-10] MEDS: Cyanocobalamin (B-12) 1,000 MCG TABLET PO SCH (13:44)
[2021-01-10] MEDS ORDERED: Warfarin perPT PO PRN ×2 (18:00)
[2021-01-10] MEDS ORDERED: *HR* Warfarin 5 MG TABLET PO SCH (18:00)
[2021-01-10] MEDS: *HR* Enoxaparin 100 MG/ML SYRINGE SQ SCH (18:23)
[2021-01-10] MEDS ORDERED: *HR* LORazepam 0.5 MG TABLET PO PRN (18:42)
[2021-01-10] MEDS ORDERED: Famotidine 20 MG TABLET PO SCH (21:00)
[2021-01-10] MEDS ORDERED: Insulin Regular, Human 100 UNIT/ML SUBQ SCH (21:00)
[2021-01-11 05:34] LABS: INR 1.1; Prothrombin Time 12.7 Seconds (9.4-12.1)
[2021-01-11] MEDS: *HR* Enoxaparin 100 MG/ML SYRINGE SQ SCH (05:43)
[2021-01-11] MEDS: Insulin Regular, Human 100 UNIT/ML SUBQ SCH ×2 (08:28→13:04)
[2021-01-11] MEDS: Venlafaxine XR (24 HR) 75 MG CAP.ER.24H PO SCH (08:29)
[2021-01-11] MEDS: Gabapentin 300 MG CAPSULE PO SCH (08:29)
[2021-01-11] MEDS: Cyanocobalamin (B-12) 1,000 MCG TABLET PO SCH (08:29)
[2021-01-11] MEDS ORDERED: Magnesium Oxide 400 MG TABLET PO SCH (09:00)
[2021-01-11 09:41] LABS: Hematocrit 40.1 % (35.3-44.9); Hemoglobin 13.4 g/dL (11.5-15.4); Mean Corpuscular HGB Conc 33.4 g/dL (31.6-35.5); Mean Corpuscular Hemoglobin 28.7 pg (28.0-33.3); Mean Corpuscular Volume 85.9 fL (83.0-100.0); Mean Platelet Volume 9.5 fL (9.4-12.4); Red Blood Count 4.67 M/mcL (3.82-4.97); Red Cell Distribution Width 12.7 % (11.5-14.5); White Blood Count 3.9 K/mcL (4.3-11.1)
[2021-01-11 09:42] LABS: Platelet Count 83 K/mcL (140-400)
[2021-01-11 09:59] LABS: BUN/Creatinine Ratio 9 (6-26); Blood Urea Nitrogen 6 mg/dL (6-20); Calcium 8.7 mg/dL (8.6-10.3); Carbon Dioxide 27 mEq/L (23-29); Chloride 104 mEq/L (98-107); Glucose 251 mg/dL (70-105); Magnesium 1.5 mg/dL (1.6-2.6); Osmolality,Calculated 292 (280-300); Phosphorous 3.3 mg/dL (2.7-4.5); Potassium 4.5 mEq/L (3.5-5.1); Sodium 138 mEq/L (136-145); eGFR For African Americans > 60 (> 60); eGFR For Non-African Americans > 60 (> 60)
[2021-01-11 11:27] VITALS: BP 150/93
[2021-01-11] MEDS ORDERED: Apixaban 5 MG TABLET PO SCH (12:45)
[2021-01-11] MEDS ORDERED: Magnesium Oxide 400 MG TABLET PO ONE (13:03)
== END 2021-01-11 13:27 | disposition home or self-care (01) ==
LOC: SUATTDRO 17:27 → INTOOBSV 17:27 → 3ANU 17:27
PROVIDERS: ADMIT Family Medicine; ATTEND Internal Medicine

== ENCOUNTER 2021-02-03 23:30 | Observation (INO) ==
[2021-02-04] MEDS ORDERED: Isovue-370 500 ML BOTTLE IVP ONE (02:14)
[2021-02-04] MEDS ORDERED: Dicyclomine 20 MG/2 ML AMPUL IM ONE (03:03)
[2021-02-04 03:36] LABS: Basophils % 0.6 %; Eosinophils % 0.1 %; Hematocrit 39.4 % (35.3-44.9); Hemoglobin 12.9 g/dL (11.5-15.4); Immature Granulocytes % 1.3 % (0-4); Immature Platelets 2.3 % (1.1-6.1); Lymphocytes % 14.7 %; Mean Corpuscular HGB Conc 32.7 g/dL (31.6-35.5); Mean Corpuscular Hemoglobin 28.6 pg (28.0-33.3); Mean Corpuscular Volume 87.4 fL (83.0-100.0); Mean Platelet Volume 8.7 fL (9.4-12.4); Monocytes # 0.4 K/mcL (0.0-1.3); Monocytes % 5.2 %; Neutrophils # 5.4 K/mcL (1.6-8.9); Platelet Count 117 K/mcL (140-400); Red Blood Count 4.51 M/mcL (3.82-4.97); Red Cell Distribution Width 12.8 % (11.5-14.5); Segmented Neutrophils % 78.1 %; White Blood Count 6.9 K/mcL (4.3-11.1)
[2021-02-04 03:51] LABS: Alanine Aminotransferase 12 Units/L (7-52); Albumin 3.7 g/dL (3.5-5.7); Albumin/Globulin Ratio 1.4 (1.1-2.2); Alkaline Phosphatase 51 Units/L (34-104); Aspartate Amino Transferase 12 Units/L (13-39); BUN/Creatinine Ratio 4 (6-26); Bilirubin,Direct 0.1 mg/dL (0.0-0.2); Bilirubin,Indirect 0.2 mg/dL (0.0-1.0); Bilirubin,Total 0.3 mg/dL (0.3-1.0); Blood Urea Nitrogen 3 mg/dL (6-20); Calcium 8.7 mg/dL (8.6-10.3); Carbon Dioxide 23 mEq/L (23-29); Chloride 106 mEq/L (98-107); Globulin 2.6 g/dL (2.4-3.5); Glucose 249 mg/dL (70-105); Lipase < 3 Units/L (11-82); Osmolality,Calculated 291 (280-300); Potassium 4.5 mEq/L (3.5-5.1); Sodium 138 mEq/L (136-145); Total Protein 6.3 g/dL (6.4-8.9); eGFR For African Americans > 60 (> 60); eGFR For Non-African Americans > 60 (> 60)
[2021-02-04 04:09] LABS: Bilirubin,Urine Negative (Negative); Blood,Urine Negative (Negative); Clarity,Urine Clear (Clear); Color,Urine Light-Yellow (Yellow); Glucose,Urine (UA) >=1000 mg/dL (Normal); Ketones,Urine 10 mg/dL (Negative); Leukocyte Esterase,Urine Negative (Negative); Mucus,Urine Few per lpf (None-Few); Nitrite,Urine Negative (Negative); Protein,Urine Negative (Neg-Trace); RBC,Urine 0-3 per hpf (0-3); Specific Gravity,Urine 1.026 (1.010-1.025); Squamous Epithelial Cell,Urine Few per hpf (None-Few); Urobilinogen,Urine Normal (Normal); WBC,Urine 0-3 per hpf (0-3)
[2021-02-04] MEDS ORDERED: 0.9 % Sodium Chloride 1,000 ML IVC ONE (05:28)
[2021-02-04] MEDS ORDERED: *HR* FentaNYL (PF) 100 MCG/2 ML VIAL IVP ONE (05:28)
[2021-02-04] MEDS ORDERED: Piperacillin/Tazobactam 3.375 GM in 0.9 % Sodium Chloride Mini Bag 100 ML IVPB ONE (05:36)
[2021-02-04] MEDS ORDERED: Acetaminophen 325 MG TABLET PO PRN (07:26)
[2021-02-04] MEDS ORDERED: Naloxone 0.4 MG/ML INJ IVP PRN (07:26)
[2021-02-04] MEDS: Ondansetron 4 MG/2 ML VIAL IVP PRN ×2 (10:16→22:21)
[2021-02-04] MEDS: Ringers Solution, Lactated 1,000 ML IVC SCH (18:03)
[2021-02-04] MEDS ORDERED: tiZANidine 4 MG TABLET PO PRN (18:52)
[2021-02-04] MEDS ORDERED: Scopolamine Patch 1.5 MG PATCH.TD72 TD PRN (18:52)
[2021-02-04] MEDS ORDERED: Albuterol 2.5 MG/3 ML NEBULIZER IH PRN (18:52)
[2021-02-04] MEDS ORDERED: *HR* LORazepam 0.5 MG TABLET PO PRN (18:52)
[2021-02-04] MEDS: Famotidine 20 MG TABLET PO SCH (21:26)
[2021-02-04] MEDS: Gabapentin 300 MG CAPSULE PO SCH (21:26)
[2021-02-04] MEDS: QUEtiapine Fumarate 300 MG TABLET PO SCH (21:26)
[2021-02-04] MEDS: Divalproex (24 HR) 500 MG TABLET PO SCH (21:27)
[2021-02-05 05:22] LABS: Hematocrit 41.4 % (35.3-44.9); Hemoglobin 13.2 g/dL (11.5-15.4); Mean Corpuscular HGB Conc 31.9 g/dL (31.6-35.5); Mean Corpuscular Hemoglobin 28.2 pg (28.0-33.3); Mean Corpuscular Volume 88.5 fL (83.0-100.0); Mean Platelet Volume 8.1 fL (9.4-12.4); Platelet Count 113 K/mcL (140-400); Red Blood Count 4.68 M/mcL (3.82-4.97); Red Cell Distribution Width 13.1 % (11.5-14.5); White Blood Count 4.4 K/mcL (4.3-11.1)
[2021-02-05] MEDS: *HR* Enoxaparin 40 MG/0.4 ML SYRINGE SQ SCH (05:50)
[2021-02-05] MEDS: Magnesium Oxide 400 MG TABLET PO SCH (07:48)
[2021-02-05] MEDS: Gabapentin 300 MG CAPSULE PO SCH ×3 (07:48→19:42)
[2021-02-05] MEDS: Ondansetron 4 MG/2 ML VIAL IVP PRN ×2 (07:49→15:59)
[2021-02-05] MEDS: INSULIN REGULAR HUMAN 100 UNIT/ML SQ SCH ×5 (07:59→21:18)
[2021-02-05] MEDS: SUBCUTANEOUS INSULIN PUMP SQ SCH (08:00)
[2021-02-05] MEDS: Ringers Solution, Lactated 1,000 ML IVC SCH (08:05)
[2021-02-05 08:08] LABS: BUN/Creatinine Ratio 3 (6-26); Blood Urea Nitrogen 2 mg/dL (6-20); Calcium 8.9 mg/dL (8.6-10.3); Carbon Dioxide 29 mEq/L (23-29); Chloride 108 mEq/L (98-107); Glucose 84 mg/dL (70-105); Magnesium 1.7 mg/dL (1.6-2.6); Osmolality,Calculated 293 (280-300); Potassium 3.1 mEq/L (3.5-5.1); Sodium 144 mEq/L (136-145); eGFR For African Americans > 60 (> 60); eGFR For Non-African Americans > 60 (> 60)
[2021-02-05] MEDS ORDERED: Potassium Chloride Elixir 20 MEQ/15 ML UDC PO ONE (08:16)
[2021-02-05] MEDS: Piperacillin/Tazobactam 3.375 GM in 0.9 % Sodium Chloride Mini Bag 100 ML IVPB SCH (16:00)
[2021-02-05] MEDS: Famotidine 20 MG TABLET PO SCH (19:40)
[2021-02-05] MEDS: QUEtiapine Fumarate 300 MG TABLET PO SCH (19:41)
[2021-02-05] MEDS: Divalproex (24 HR) 500 MG TABLET PO SCH (19:41)
[2021-02-06] MEDS: Ondansetron 4 MG/2 ML VIAL IVP PRN ×3 (00:33→19:02)
[2021-02-06] MEDS: Piperacillin/Tazobactam 3.375 GM in 0.9 % Sodium Chloride Mini Bag 100 ML IVPB SCH ×3 (00:33→16:37)
[2021-02-06] MEDS: *HR* Enoxaparin 40 MG/0.4 ML SYRINGE SQ SCH (05:23)
[2021-02-06 06:05] LABS: BUN/Creatinine Ratio 3 (6-26); Blood Urea Nitrogen 2 mg/dL (6-20); Calcium 8.6 mg/dL (8.6-10.3); Carbon Dioxide 25 mEq/L (23-29); Chloride 109 mEq/L (98-107); Glucose 169 mg/dL (70-105); Osmolality,Calculated 296 (280-300); Potassium 4.7 mEq/L (3.5-5.1); Sodium 143 mEq/L (136-145); eGFR For African Americans > 60 (> 60); eGFR For Non-African Americans > 60 (> 60)
[2021-02-06 06:43] LABS: Basophils # 0.1 K/mcL (0.0-0.2); Basophils % 1.2 %; Eosinophils # 0.2 K/mcL (0.0-0.6); Eosinophils % 3.3 %; Hematocrit 39.4 % (35.3-44.9); Immature Granulocytes % 1.9 % (0-4); Lymphocytes # 2.4 K/mcL (0.6-4.6); Lymphocytes % 46.1 %; Mean Corpuscular Volume 87.9 fL (83.0-100.0); Monocytes # 0.5 K/mcL (0.0-1.3); Monocytes % 9.3 %; Platelet Count 109 K/mcL (140-400); Red Blood Count 4.48 M/mcL (3.82-4.97); Red Cell Distribution Width 12.8 % (11.5-14.5); Segmented Neutrophils % 38.2 %; White Blood Count 5.1 K/mcL (4.3-11.1)
[2021-02-06] MEDS: INSULIN REGULAR HUMAN 100 UNIT/ML SQ SCH ×4 (08:05→22:11)
[2021-02-06] MEDS: Gabapentin 300 MG CAPSULE PO SCH ×3 (09:26→19:46)
[2021-02-06] MEDS: Magnesium Oxide 400 MG TABLET PO SCH (09:26)
[2021-02-06] MEDS: Divalproex (24 HR) 500 MG TABLET PO SCH (19:47)
[2021-02-06] MEDS: Famotidine 20 MG TABLET PO SCH (19:47)
[2021-02-06] MEDS: QUEtiapine Fumarate 300 MG TABLET PO SCH (19:47)
[2021-02-07] MEDS: Piperacillin/Tazobactam 3.375 GM in 0.9 % Sodium Chloride Mini Bag 100 ML IVPB SCH ×2 (00:54→08:25)
[2021-02-07 06:58] VITALS: BP 121/73
[2021-02-07] MEDS: Magnesium Oxide 400 MG TABLET PO SCH (08:23)
[2021-02-07] MEDS: Gabapentin 300 MG CAPSULE PO SCH (08:23)
[2021-02-07] MEDS: *HR* Enoxaparin 40 MG/0.4 ML SYRINGE SQ SCH (08:24)
[2021-02-07] MEDS: INSULIN REGULAR HUMAN 100 UNIT/ML SQ SCH (08:24)
[2021-02-07] MEDS: SUBCUTANEOUS INSULIN PUMP SQ SCH (08:26)
== END 2021-02-07 10:04 | disposition home or self-care (01) ==
LOC: 3BNU 23:30 → EMEROOARM 23:30 → SUATTDRO 02-04 06:30 → 3BNU 02-04 07:43
PROVIDERS: ADMIT Internal Medicine; ATTEND Student in an Organized Health Care Education/Training Program